=== PATIENT | male | born 1985 | race Caucasian/White ===

== ENCOUNTER 2021-02-28 12:07 | Emergency (ER) | payer MEDICAID, SELFPAY ==
[2021-02-28 12:13] VITALS: BP 127/89; PULSE 73; O2SAT 98
[2021-02-28 13:05] VITALS: BP 130/82; PULSE 72; RESP 16; TEMP 36.7; O2SAT 99; BMI 26.4
--- NOTE | 2021-02-28 15:43 | ED.GENADULT ---
HPI - General Adult General Chief complaint: Recheck/Abnormal Lab/Rx Stated complaint: hyperglycemia Time Seen by Provider: 02/28/21 15:42 Source: patient and EMS Mode of arrival: EMS Limitations: no limitations History of Present Illness HPI narrative: 35-year-old male presenting to the ER for evaluation of hyperglycemia. He reports his mom checked his blood sugar last night with her glucometer and was elevated at 398. Patient has no history of diabetes. He has a strong family history of diabetes in his mother and grandmother. He reports his last routine blood work was done about a year and a half ago with his primary care doctor at the [facility]. He has no known medical issues aside from some mild intermittent asthma. He occasionally uses marijuana but does not use any illicit drugs. He reports lately he has been extra hungry and very thirsty. He did any fever, chills, nausea, vomiting, abdominal pain, chest pain. MD complaint: hyperglycemia Onset (ago): unknown Relieving factors: none Exacerbating factors: none Associated symptoms: denies other symptoms Treatments prior to arrival: none Related Data Previous Rx's Medication Instructions Recorded blood sugar diagnostic (FreeStyle #100 ea 02/28/21 Lite Strips) blood-glucose meter (FreeStyle #1 ea 02/28/21 Lite Meter) lancets 28 gauge (FreeStyle #100 ea 02/28/21 Lancets) metformin 500 mg tablet 500 mg PO BID #60 tab 02/28/21 Allergies Allergy/AdvReac Type Severity Reaction Status Date / Time SHELLFISH Allergy Unknown ITCHY Uncoded 12/17/19 15:39 THROAT Review of Systems Review of Systems: Constitutional: No Fever, No Chills ENT/Mouth: No sore throat, No Rhinorrhea Cardiovascular: No Chest Pain, No SOB Respiratory: No Cough, No Sputum, No Wheezing, No dyspnea Gastrointestinal: No Nausea, No Vomiting, No Diarrhea, No abdominal Pain Genitourinary: No Dysuria Musculoskeletal: No joint pain, No Myalgias Skin: No Skin Lesions, No rash Neuro: No Weakness, No Numbness, No Dizziness,+ Headache Psych: + Anxiety/Panic, No Depression Heme/Lymph: No Bruising, No Lymphadenopathy Endocrine: + Polyuria, + Polydipsia PMF Past Medical History Medical History (Updated 02/28/21 @ 16:42 by ROSANGELA Cisneros) Asthma Social History Social History Advance Directives: No Advance Directives Information Provided: No Physical Exam Vital Signs: Vital Signs: Last Vital Signs Temp 98.1 F 02/28/21 13:05 Pulse 72 02/28/21 13:05 Resp 16 02/28/21 13:05 BP 130/82 02/28/21 13:05 Pulse Ox 99 02/28/21 13:05 Body Mass Index 26.4 Appearance: Alert. Oriented X3. No acute distress. Eyes: Pupils equal, round and reactive to light. ENT: Pharynx normal. Neck: Normal inspection. Neck supple. CVS: Normal heart rate and rhythm. Pulses normal. Respiratory: No respiratory distress. Breath sounds normal. Abdomen: Soft and nontender. +BS x4 Skin: Skin warm and dry. Normal skin color. Normal skin turgor. No rashes. Extremities: No lower extremity edema. Neuro: Oriented X 3. No motor deficit. No sensory deficit. Course Course Course Narrative: [age] male with history of asthma presents to the ER for evaluation of hyperglycemia. He reports his mom use her glucometer to check his sugar and it was 398 last night. He appears comfortable not in any respiratory distress. Doubt DKA. Will get basic lab workup and hemoglobin A1c. Will start some IV fluids. Reevaluation(s) Reevaluation #1: PH is normal which is reassuring against DKA. Other labs are still pending. Reevaluation #2: Labs show glucose 288. No anion gap. His hemoglobin A1c is 11% consistent with a sugar of 270. This is consistent with diabetes. Patient educated and counseled on this new diagnosis. Lab workup is otherwise unremarkable. At this time will start on metformin 500 mg b.i.d. and have follow-up with his primary care in the next 2 weeks. He had a has an appointment on March 14 and will try to move it up. It glucometer, test strips and lancets have been sent to his pharmacy and patient will be provided information on carb counting and newly diagnosed diabetes. All questions were answered and patient is stable for discharge home. Medical Decision Making Lab Data Result diagrams: 02/28/21 16:10 02/28/21 16:10 Labs: Lab Results 02/28/21 02/28/21 02/28/21 Range/Units 16:10 16:10 16:10 WBC 9.3 (4.8-10.8) X10*3/uL RBC 5.35 (4.60-5.80) X10*6/uL Hgb 15.1 (14.0-18.0) g/dl Hct 44.8 (42.0-52.0) % MCV 83.7 (80.0-98.0) fL MCH 28.2 (27.0-33.0) pg MCHC 33.7 (31.0-36.0) g/dl RDW 11.9 (11.0-16.0) % Plt Count 336 (160-400) X10*3/uL MPV 9.2 L (9.4-12.4) fL Immature Gran % (Auto) 0.8 H (0.0-0.4) % Neut % (Auto) 57.1 (45-73) % Lymph % (Auto) 32.7 (20-40) % [place] % (Auto) 8.0 (2-11) % Eos % (Auto) 1.1 (0-4) % Baso % (Auto) 0.3 (0-2) % Lymph # (Auto) 3.0 (1.2-4.9) X10*3/uL [place] # (Auto) 0.7 (0.1-1.2) X10*3/uL Eos # (Auto) 0.1 (0.0-0.4) X10*3/uL Baso # (Auto) 0.0 (0.0-0.2) X10*3/uL Abs Immat Gran (auto) 0.07 H (0.00-0.03) X10*3/uL Absolute Neuts (auto) 5.3 (2.0-8.3) x10*3/uL Absolute Nucleated RBC 0.000 (0.0-0.012) X10*3/uL Nucleated RBC % (auto) 0.0 (0.0-0.2) /100WBC VBG pH (7.32-7.43) VBG pCO2 mmHg VBG pO2 mmHg VBG HCO3 (22-26) mmol/L VBG O2 Saturation % VBG Base Excess mmol/L Sodium 137 (135-145) mmol/L Potassium 4.2 (3.3-5.1) mmol/L Chloride 103 (96-108) mmol/L Carbon Dioxide 27 (22-29) mmol/L Anion Gap 11 L (12-20) BUN 10 (9-16) mg/dL Creatinine 0.85 (0.5-1.4) mg/dL Estim Creat Clear Calc 96.4 Estimated GFR > 60 Random Glucose 288 H (60-115) mg/dL Estimat Average Glucose 269 mg/dL Hemoglobin A1c % 11.0 % Calcium 9.4 (8.4-10.2) mg/dL Magnesium 1.8 (1.6-2.6) mg/dL Total Bilirubin 0.3 (0.0-1.0) mg/dL Direct Bilirubin < 0.2 (0.0-0.5) mg/dL AST 12 (5-37) U/L ALT 24 (0-40) U/L Alkaline Phosphatase 77 (39-117) U/L Total Protein 6.5 (6.5-8.0) g/dL Albumin 3.9 (3.5-5.0) g/dL Acetone, Qual Negative (Negative) 02/28/21 Range/Units 16:24 WBC (4.8-10.8) X10*3/uL RBC (4.60-5.80) X10*6/uL Hgb (14.0-18.0) g/dl Hct (42.0-52.0) % MCV (80.0-98.0) fL MCH (27.0-33.0) pg MCHC (31.0-36.0) g/dl RDW (11.0-16.0) % Plt Count (160-400) X10*3/uL MPV (9.4-12.4) fL Immature Gran % (Auto) (0.0-0.4) % Neut % (Auto) (45-73) % Lymph % (Auto) (20-40) % [place] % (Auto) (2-11) % Eos % (Auto) (0-4) % Baso % (Auto) (0-2) % Lymph # (Auto) (1.2-4.9) X10*3/uL [place] # (Auto) (0.1-1.2) X10*3/uL Eos # (Auto) (0.0-0.4) X10*3/uL Baso # (Auto) (0.0-0.2) X10*3/uL Abs Immat Gran (auto) (0.00-0.03) X10*3/uL Absolute Neuts (auto) (2.0-8.3) x10*3/uL Absolute Nucleated RBC (0.0-0.012) X10*3/uL Nucleated RBC % (auto) (0.0-0.2) /100WBC VBG pH 7.37 (7.32-7.43) VBG pCO2 48 mmHg VBG pO2 40 mmHg VBG HCO3 28 H (22-26) mmol/L VBG O2 Saturation 67.0 % VBG Base Excess 2.2 mmol/L Sodium (135-145) mmol/L Potassium (3.3-5.1) mmol/L Chloride (96-108) mmol/L Carbon Dioxide (22-29) mmol/L Anion Gap (12-20) BUN (9-16) mg/dL Creatinine (0.5-1.4) mg/dL Estim Creat Clear Calc Estimated GFR Random Glucose (60-115) mg/dL Estimat Average Glucose mg/dL Hemoglobin A1c % % Calcium (8.4-10.2) mg/dL Magnesium (1.6-2.6) mg/dL Total Bilirubin (0.0-1.0) mg/dL Direct Bilirubin (0.0-0.5) mg/dL AST (5-37) U/L ALT (0-40) U/L Alkaline Phosphatase (39-117) U/L Total Protein (6.5-8.0) g/dL Albumin (3.5-5.0) g/dL Acetone, Qual (Negative) Discharge Plan Discharge Clinical Impression: Newly diagnosed diabetes Patient Disposition: Home, Self-Care Instructions: Type 2 Diabetes in Adults: New Diagnosis (ED), Basic Carbohydrate Counting (DC), How to Check your Blood Sugar (ED) Additional Instructions: Your hemoglobin A1c is 11% with an estimated average glucose of 269. This is consistent with a new diagnosis of diabetes. You are being started on Metformin 500 mg two times per day to help treat your diabetes. A glucometer and diabetic test strips have been sent to your pharmacy. Monitor your glucose before meals and at bedtime. Keep a record of your glucose readings for your doctor. Follow-up with your doctor as scheduled on March 14. If you can not move up this appointment that would be ideal. Limit your carb and sugar intake. Information on counting carbohydrates is attached. Avoid soda and high sugar drinks. If you develop new or worsening symptoms call 911 or come back to the ER for further evaluation. Prescriptions: New (DME) blood-glucose meter [FreeStyle Lite Meter] Kit See Rx Instructions .Route Qty: 1 RF: 0 (DME) lancets [FreeStyle Lancets] 28 gauge misc See Rx Instructions .Route Qty: 100 RF: 0 (DME) FreeStyle Lite Strips Strip See Rx Instructions .Route Qty: 100 RF: 0 metformin 500 mg tablet 500 mg PO BID Qty: 60 RF: 0 Referrals: [facility] [Primary Care Provider] - 2 days (Newly diagnosed diabetes)
[2021-02-28] MEDS: 0.9 % Sodium Chloride 1,000 ML 999 ML IVCONT (16:12)
[2021-02-28 16:25] LABS: MANUAL DIFF FLAG NO
[2021-02-28 16:28] LABS: Basophils Percent Auto 0.3 % (0-2); Eosinophils Absolute Auto 0.1 X10*3/uL (0.0-0.4); Eosinophils Percent Auto 1.1 % (0-4); Hematocrit 44.8 % (42.0-52.0); Hemoglobin 15.1 g/dl (14.0-18.0); Imm Gran Abs Auto 0.07 X10*3/uL (0.00-0.03); Imm Gran Pct Auto 0.8 % (0.0-0.4); Lymphocytes Percent Auto 32.7 % (20-40); Mean Corpuscular HGB Conc 33.7 g/dl (31.0-36.0); Mean Corpuscular Hemoglobin 28.2 pg (27.0-33.0); Mean Corpuscular Volume 83.7 fL (80.0-98.0); Mean Platelet Volume 9.2 fL (9.4-12.4); Monocytes Absolute Auto 0.7 X10*3/uL (0.1-1.2); Neutrophils Absolute Auto 5.3 x10*3/uL (2.0-8.3); Neutrophils Percent Auto 57.1 % (45-73); Platelet Count 336 X10*3/uL (160-400); Red Blood Count 5.35 X10*6/uL (4.60-5.80); Red Cell Distribution Width 11.9 % (11.0-16.0); White Blood Count 9.3 X10*3/uL (4.8-10.8)
[2021-02-28 16:30] LABS: Venous Blood Gas Refer to POC result
[2021-02-28 16:30] LABS: VBG Base Excess 2.2 mmol/L; VBG HCO3 28 mmol/L (22-26); VBG pCO2 48 mmHg; VBG pH 7.37 (7.32-7.43); VBG pO2 40 mmHg
[2021-02-28 16:42] LABS: Estimated Average Glucose 269 mg/dL
[2021-02-28 16:44] LABS: Acetone, serum QL Negative (Negative); Alanine Aminotransferase 24 U/L (0-40); Albumin Level 3.9 g/dL (3.5-5.0); Alkaline Phosphatase 77 U/L (39-117); Anion Gap 11 (12-20); Aspartate Amino Transferase 12 U/L (5-37); Bilirubin Direct < 0.2 mg/dL (0.0-0.5); Bilirubin Total 0.3 mg/dL (0.0-1.0); Blood Urea Nitrogen 10 mg/dL (9-16); Calcium 9.4 mg/dL (8.4-10.2); Carbon Dioxide 27 mmol/L (22-29); Chloride 103 mmol/L (96-108); Creatinine Clr Calc Pharmacy 96.4; Estimated Glomerular Filt Rate > 60; Glucose Random 288 mg/dL (60-115); Magnesium 1.8 mg/dL (1.6-2.6); Potassium 4.2 mmol/L (3.3-5.1); Sodium 137 mmol/L (135-145); Total Protein 6.5 g/dL (6.5-8.0)
== END 2021-02-28 17:55 | disposition home or self-care (01) ==
PROVIDERS: Physician Assistant; Emergency Provider Emergency Medicine Emergency Medical Services
DX: E11.9 Type 2 diabetes mellitus without complications (principal)
CPT/HCPCS: 36415; 80048; 80076; 82009; 82803; 83036; 83735; 85025; 96360; 99282; 99284

== ENCOUNTER 2021-05-03 10:00 | Emergency (ER) | payer MEDICAID, SELFPAY ==
--- NOTE | ~2021-05-03 | XR_ITS ---
EXAMINATION: XR CHEST CLINICAL INFORMATION: Fever and cough COMPARISON: Previous chest x-ray March 2016 TECHNIQUE: Frontal view of the chest was obtained. FINDINGS: No significant abnormality is noted involving the heart, lungs, mediastinum, bony thorax or soft tissues. XR/XR chest 1V IMPRESSION: Unremarkable examination.
--- NOTE | ~2021-05-03 | CT_ITS ---
EXAMINATION: CT HEAD WITHOUT CONTRAST CLINICAL INFORMATION: Headache. History of head injury one week ago COMPARISON: None TECHNIQUE: Contiguous axial imaging was performed from the skull base to vertex without intravenous administration of contrast. This CT examination was performed using dose optimization techniques as appropriate, variously including the following: *Automated exposure control *Adjustment of mA and/or kV according to patient size (this includes techniques or standardized protocols for targeted exams where dose is matched to indication/reason for exam; i.e. extremities or head) *Use of iterative reconstruction technique DLP: 652 mGy-cm FINDINGS: There is no evidence of an extra-axial collection. There is no evidence of intra-axial or extra-axial hemorrhage. There is a prominent cisterna magna. The ventricles and extra-axial CSF spaces are otherwise appropriate. Stephen-white matter differentiation is normal. No mass, mass effect or infarct is seen. There are inflammatory changes in the right maxillary sinus. Visualized paranasal sinuses, mastoid air cells and middle ears are otherwise clear.. CT/CT head/brain wo con IMPRESSION: No acute findings.
[2021-05-03 10:24] VITALS: BP 149/101; PULSE 115; RESP 20; TEMP 36.7; O2SAT 97; BMI 29.8
[2021-05-03 10:49] LABS: COVID-19 Test Negative (Negative); IDNOW Serial# 9DD0AD1C
--- NOTE | 2021-05-03 10:53 | PC.NURSE ---
PT STATES LAST WEEK HE HIT HIMSELF WITH A CUP IN THE FOREHEAD AND SINCE THEN HE FEELS NAUSEAS AND HAS HEADACHE. ABRASION NOTED TO FOREHEAD WITH MILD SWELLING. NEUROS INTACT, PERRLA.
[2021-05-03] MEDS: Butalb/Acetamin/Caff 50/325/40 TABLET 2 TAB PO (11:59)
[2021-05-03] MEDS: Ondansetron ODT 4 MG TAB.RAPDIS TRANSLINGU (11:59)
[2021-05-03 12:32] LABS: Influenza A Negative (Negative); Influenza B2 Negative (Negative)
[2021-05-03 12:48] VITALS: PULSE 99; RESP 17; O2SAT 99
[2021-05-03 12:49] VITALS: RESP 17
[2021-05-03 13:02] LABS: MANUAL DIFF FLAG NO
[2021-05-03 13:04] LABS: Glucose, Whole Blood 112 mg/dL (60-115)
[2021-05-03 13:10] LABS: Basophils Percent Auto 0.3 % (0-2); Eosinophils Absolute Auto 0.1 X10*3/uL (0.0-0.4); Eosinophils Percent Auto 0.4 % (0-4); Hematocrit 49.5 % (42.0-52.0); Hemoglobin 16.4 g/dl (14.0-18.0); Imm Gran Pct Auto 0.7 % (0.0-0.4); Lymphocytes Absolute Auto 4.2 X10*3/uL (1.2-4.9); Lymphocytes Percent Auto 29.4 % (20-40); Mean Corpuscular HGB Conc 33.1 g/dl (31.0-36.0); Mean Corpuscular Hemoglobin 27.4 pg (27.0-33.0); Mean Corpuscular Volume 82.8 fL (80.0-98.0); Mean Platelet Volume 8.3 fL (9.4-12.4); Monocytes Absolute Auto 1.2 X10*3/uL (0.1-1.2); Monocytes Percent Auto 8.5 % (2-11); Neutrophils Absolute Auto 8.7 x10*3/uL (2.0-8.3); Neutrophils Percent Auto 60.7 % (45-73); Platelet Count 438 X10*3/uL (160-400); Red Blood Count 5.98 X10*6/uL (4.60-5.80); Red Cell Distribution Width 12.5 % (11.0-16.0); White Blood Count 14.3 X10*3/uL (4.8-10.8)
[2021-05-03] MEDS: Ketorolac Tromethamine 30 MG/ML VIAL IVPUSH (13:20)
[2021-05-03] MEDS: 0.9 % Sodium Chloride 1,000 ML 999 ML IVCONT (13:21)
[2021-05-03] MEDS: diphenhydrAMINE HCL 50 MG/ML VIAL 25 MG IVPUSH (13:29)
--- NOTE | 2021-05-03 13:31 | ED_ITS ---
HPI - Headache General Chief Complaint: General Medical Stated Complaint: Nauseous Time Seen by Provider: 05/03/21 11:42 Source: patient Mode of arrival: ambulatory Limitations: no limitations History of Present Illness HPI Narrative: 36-year-old male with a past medical history of diabetes currently on metformin presenting to the ED with complaints of frontal headache pressure sensation that is worse with light with associated nasal congestion/rhinorrhea, ear pain, dry cough, nausea and vomiting along with body aches and diaphoresis for the past few days worse today. Reports that he was seen at [facility] approximately 1-2 weeks ago where he slammed a ceramic cup on his head and had to have sutures to his forehead. He reports since then he has been having intermittent headaches. He is unsure if [facility] did a CT scan of his head. He he denies any measured fevers, dizziness, neck pain/stiffness, changes in vision, black or bloody emesis, loss of taste or smell, sputum production, chest pain or shortness of breath, dyspnea on exertion, orthopnea, palpitations, abdominal pain, back pain, rashes, dysuria, hematuria, recent travel or sick contacts or any other symptoms complaints or concerns at this time. MD elicited complaint: headache Onset (ago): day(s) Onset description: gradually Location: frontal Severity: moderate Quality & Timing: aching (/pressure sensation) and constant Exacerbating factors: light Relieving factors: nothing Context: other (Cannot recall) Associated symptoms: nausea, vomiting, photophobia, cough and diaphoresis Treatments prior to arrival: none Related Data Previous Rx's Medication Instructions Recorded blood sugar diagnostic (FreeStyle #100 ea 02/28/21 Lite Strips) blood-glucose meter (FreeStyle #1 ea 02/28/21 Lite Meter) lancets 28 gauge (FreeStyle #100 ea 02/28/21 Lancets) metformin 500 mg tablet 500 mg PO BID #60 tab 02/28/21 amoxicillin 875 mg-potassium 1 tab PO BID 10 Days #20 tab 05/03/21 clavulanate 125 mg tablet (Augmentin) fsjbmaigen-ijzudtjacqhhp-kekwkauf 1 cap PO Q8H PRN #14 cap 05/03/21 50 mg-300 mg-40 mg capsule (Fioricet) ondansetron 4 mg disintegrating 4 mg PO Q8H #14 tab 05/03/21 tablet Allergies Allergy/AdvReac Type Severity Reaction Status Date / Time SHELLFISH Allergy Unknown ITCHY Uncoded 12/17/19 15:39 THROAT Review of Systems Verdana 4l Review of Systems: Verdana 4d Verdana 4d Constitutional : Positive diaphoresis/chills/fatigue/malaise, No changes in activity, No lethargy, No recent prior head injury, No agitation, No increased fussiness ENT/Mouth : Positive ear pain/nasal congestion/rhinorrhea, No Ear Pain, No Nasal discharge/drainage, no sore throat, no trouble swallowing Eyes: No Eye Pain, No Swelling, No Redness, No Foreign Body, No Vision Changes Cardiovascular : No Chest Pain, No SOB Respiratory : Positive Cough, no sputum production, no wheezing, no shortness of breath Gastrointestinal : Positive nausea/vomiting, no diarrhea, no constipation, No abdominal Pain Genitourinary : No Dysuria, No Urinary Frequency, No Urinary Incontinence, No Urgency, No Flank Pain Musculoskeletal : No joint pain, No neck stiffness, No back pain/injury Skin : No lacerations Neuro : No unsteady gait, No Paresthesias, No Loss of Consciousness, No altered mental status, No dizziness, + Headache Denies past medical history of HIV, recent trauma, coagulopathy, recent spinal/ epidural procedure, new medication, URI symptoms, close contacts with similar symptoms, tick bite, or known CO2 exposure. Yes all other systems are reviewed and are negative [facility] Past Medical History Attestation statement: The following information was validated with the patient. Medical History Asthma Social History Social History Advance Directives: No Advance Directives Information Provided: No Physical Exam Verdana 4l Vital Signs: Verdana 4d Verdana 4d Vital Signs: Verdana 4d Verdana 4Bd Last Vital Signs Verdana 4d Excellence Specialist New 4d Excellence Specialist New 4d Temp 97.8 F 05/03/21 14:24 Excellence Specialist New 4d Pulse 87 05/03/21 14:24 Excellence Specialist New 4d Resp 16 05/03/21 14:24 BP 116/77 05/03/21 14:24 Pulse Ox 100 05/03/21 14:24 BMI result Body Mass Index 29.8 Vital signs have been reviewed as normal and appeared to be correct. Blood pressure 149/101. Heart rate 115. Respiration rate normal. Temperature normal. Oxygen saturation normal. Appearance: Alert. Oriented X3. No acute distress. Head: Normal external exam. Normocephalic. Atraumatic. Able to rotate head bilaterally. No temporal artery tendinitis noted. Eyes: PERRLA. EOMI. No nystagmus noted. Conjunctiva and sclera normal. Eyelids normal. Corneal reflex normal. ENT: EAC normal. TM's mildly erythematous with decreased light reflex consistent with mild otitis media. Tympanic membranes are intact not perforated. Pharynx normal. Uvula midline. tongue midline. Moist mucous membranes. No trismus noted. No drooling noted. No muffled voice noted. Neck: Normal inspection. Neck supple. FROM. No adenopathy. Thyroid Normal. No meningeal signs. No neck mass noted. CVS: Normal heart rate and rhythm. Heart sound normal. No murmurs noted. Pulses normal throughout. Respiratory: No respiratory distress. Painless inspiration. Breath sounds normal. No wheezes/rales/rhonchi noted. Chest nontender. No accessory muscle usage noted or decreased air movement noted. Back: Full range of motion noted. Skin: Skin warm and dry. Normal skin color. Normal skin turgor. No rashes/lesions/lacerations noted. Extremities: Extremities exhibit normal range of motion. Extremities nontender. Able to shrug shoulders bilaterally and keep up against resistance. Neuro: Oriented X 3. No motor deficit. No sensory deficit. Reflexes normal. Moving all extremities. No focal motor deficits. Cranial nerves II-XI intact bilaterally. Facial strength normal. Normal cognition. Speech normal. Gait normal. Strength 5/5 throughout. No pronator drift. No tremor noted. No fasciculations noted. Muscle tone normal throughout. No asterixis noted. Rbfsqb-kc-wpjn test normal. Heel to longo test normal. Tandem gait normal. Does not sway with eyes open. Romberg test negative. Rapid alternating movement upper extremity normal. Rapid alternating movement lower extremity normal. Hand drop from overhead-Mrs. face. No rigidity noted. Course Course Course Narrative: 13pm - 36-year-old male with a past medical history of diabetes currently on metformin presenting to the ED with complaints of frontal headache pressure sensation that is worse with light with associated nasal congestion/rhinorrhea, ear pain, dry cough, nausea and vomiting along with body aches and diaphoresis for the past few days worse today. Reports that he was seen at [facility] approximately 1-2 weeks ago where he slammed a ceramic cup on his head and had to have sutures to his forehead. He reports since then he has been having intermittent headaches. He is unsure if [facility] did a CT scan of his head. He he denies any measured fevers, dizziness, neck pain/stiffness, changes in vision, black or bloody emesis, loss of taste or smell, sputum production, chest pain or shortness of breath, dyspnea on exertion, orthopnea, palpitations, abdominal pain, back pain, rashes, dysuria, hematuria, recent travel or sick contacts or any other symptoms complaints or concerns at this time. Plan: Patient negative for COVID and flu at this time. His blood sugar at this time is 117. Therefore at this time will obtain labs, CT scan of brain without contrast, chest x-ray. Provide a L of IV fluids due to the patient reports no symptomatic relief after the Fioricet will also provide 4 mg of Zofran, 30 mg of Toradol and 25 mg of Benadryl then re-evaluate. Reevaluation(s) Reevaluation #1: - labs reviewed patient [place] an [place] [address] most likely related to his episodes of nausea/vomiting. His platelet count is 438. Otherwise all other labs are within normal limits. UA revealed blood and 100 glucose otherwise no evidence of UTI. Patient negative for COVID and flu. His CT scan of brain is within normal limits. His chest x-ray is within normal limits. Will DC home antibiotics for bilateral otitis media and instructions return if any new or worsening symptoms to follow up with primary care provider. Patient understands agrees with this plan. Time: 15:14 [facility] - Headache Medical Records Attestation: I reviewed the patient's medical records. Lab Data Attestation: I reviewed the patient's lab results. Result diagrams: 05/03/21 12:58 05/03/21 13:45 Labs: Lab Results 05/03/21 05/03/21 05/03/21 Range/Units 10:28 12:01 12:52 WBC (4.8-10.8) X10*3/uL RBC (4.60-5.80) X10*6/uL Hgb (14.0-18.0) g/dl Hct (42.0-52.0) % MCV (80.0-98.0) fL MCH (27.0-33.0) pg MCHC (31.0-36.0) g/dl RDW (11.0-16.0) % Plt Count (160-400) X10*3/uL MPV (9.4-12.4) fL Immature Gran % (Auto) (0.0-0.4) % Neut % (Auto) (45-73) % Lymph % (Auto) (20-40) % [place] % (Auto) (2-11) % Eos % (Auto) (0-4) % Baso % (Auto) (0-2) % Lymph # (Auto) (1.2-4.9) X10*3/uL [place] # (Auto) (0.1-1.2) X10*3/uL Eos # (Auto) (0.0-0.4) X10*3/uL Baso # (Auto) (0.0-0.2) X10*3/uL Abs Immat Gran (auto) (0.00-0.03) X10*3/uL Absolute Neuts (auto) (2.0-8.3) x10*3/uL Absolute Nucleated RBC (0.0-0.012) X10*3/uL Nucleated RBC % (auto) (0.0-0.2) /100WBC ESR (0-15) MM/HR Sodium (135-145) mmol/L Potassium (3.3-5.1) mmol/L Chloride (96-108) mmol/L Carbon Dioxide (22-29) mmol/L Anion Gap (12-20) BUN (9-16) mg/dL Creatinine (0.5-1.4) mg/dL Estim Creat Clear Calc Estimated GFR POC Glucose 112 (60-115) mg/dL Random Glucose (60-115) mg/dL Calcium (8.4-10.2) mg/dL Magnesium (1.6-2.6) mg/dL Total Bilirubin (0.0-1.0) mg/dL AST (5-37) U/L ALT (0-40) U/L Alkaline Phosphatase (39-117) U/L C-Reactive Protein (< or = 0.50) mg/dL Total Protein (6.5-8.0) g/dL Albumin (3.5-5.0) g/dL Urine Color Urine Appearance Urine pH (5.0-8.0) Ur Specific [place] (1.005-1.025) Urine Protein (NEG-TRACE) MG/DL Urine Glucose (UA) (NEG) MG/DL Urine Ketones (NEG) MG/DL Urine Blood (NEG) Urine Nitrite (NEG) Ur Leukocyte Esterase (NEG) Urine RBC (0) /HPF Urine WBC (0-4) /HPF Ur Squamous Epith Cells /LPF Other Crystals /LPF Urine Bacteria /LPF Urine Mucus /LPF COVID-19 (ESE) Negative (Negative) COVID-19 Clin Com See Note Influenza Type A (ADAM) Negative (Negative) Influenza Type B (ADAM) Negative (Negative) Influenza A & B Note See Note 05/03/21 05/03/21 05/03/21 Range/Units 12:58 12:58 13:45 WBC 14.3 H (4.8-10.8) X10*3/uL RBC 5.98 H (4.60-5.80) X10*6/uL Hgb 16.4 (14.0-18.0) g/dl Hct 49.5 (42.0-52.0) % MCV 82.8 (80.0-98.0) fL MCH 27.4 (27.0-33.0) pg MCHC 33.1 (31.0-36.0) g/dl RDW 12.5 (11.0-16.0) % Plt Count 438 H D (160-400) X10*3/uL MPV 8.3 L (9.4-12.4) fL Immature Gran % (Auto) 0.7 H (0.0-0.4) % Neut % (Auto) 60.7 (45-73) % Lymph % (Auto) 29.4 (20-40) % [place] % (Auto) 8.5 (2-11) % Eos % (Auto) 0.4 (0-4) % Baso % (Auto) 0.3 (0-2) % Lymph # (Auto) 4.2 (1.2-4.9) X10*3/uL [place] # (Auto) 1.2 (0.1-1.2) X10*3/uL Eos # (Auto) 0.1 (0.0-0.4) X10*3/uL Baso # (Auto) 0.0 (0.0-0.2) X10*3/uL Abs Immat Gran (auto) 0.10 H (0.00-0.03) X10*3/uL Absolute Neuts (auto) 8.7 H (2.0-8.3) x10*3/uL Absolute Nucleated RBC 0.000 (0.0-0.012) X10*3/uL Nucleated RBC % (auto) 0.0 (0.0-0.2) /100WBC ESR 2 (0-15) MM/HR Sodium 139 (135-145) mmol/L Potassium 4.3 (3.3-5.1) mmol/L Chloride 105 (96-108) mmol/L Carbon Dioxide 27 (22-29) mmol/L Anion Gap 11 L (12-20) BUN 9 (9-16) mg/dL Creatinine 0.80 (0.5-1.4) mg/dL Estim Creat Clear Calc 107.3 Estimated GFR > 60 POC Glucose (60-115) mg/dL Random Glucose 139 H D (60-115) mg/dL Calcium 9.7 (8.4-10.2) mg/dL Magnesium 2.1 (1.6-2.6) mg/dL Total Bilirubin 0.6 (0.0-1.0) mg/dL AST 12 (5-37) U/L ALT 20 (0-40) U/L Alkaline Phosphatase 64 (39-117) U/L C-Reactive Protein 0.08 (< or = 0.50) mg/dL Total Protein 7.5 (6.5-8.0) g/dL Albumin 4.5 (3.5-5.0) g/dL Urine Color Urine Appearance Urine pH (5.0-8.0) Ur Specific [place] (1.005-1.025) Urine Protein (NEG-TRACE) MG/DL Urine Glucose (UA) (NEG) MG/DL Urine Ketones (NEG) MG/DL Urine Blood (NEG) Urine Nitrite (NEG) Ur Leukocyte Esterase (NEG) Urine RBC (0) /HPF Urine WBC (0-4) /HPF Ur Squamous Epith Cells /LPF Other Crystals /LPF Urine Bacteria /LPF Urine Mucus /LPF COVID-19 (ESE) (Negative) COVID-19 Clin Com Influenza Type A (ADAM) (Negative) Influenza Type B (ADAM) (Negative) Influenza A & B Note 05/03/21 Range/Units 14:19 WBC (4.8-10.8) X10*3/uL RBC (4.60-5.80) X10*6/uL Hgb (14.0-18.0) g/dl Hct (42.0-52.0) % MCV (80.0-98.0) fL MCH (27.0-33.0) pg MCHC (31.0-36.0) g/dl RDW (11.0-16.0) % Plt Count (160-400) X10*3/uL MPV (9.4-12.4) fL Immature Gran % (Auto) (0.0-0.4) % Neut % (Auto) (45-73) % Lymph % (Auto) (20-40) % [place] % (Auto) (2-11) % Eos % (Auto) (0-4) % Baso % (Auto) (0-2) % Lymph # (Auto) (1.2-4.9) X10*3/uL [place] # (Auto) (0.1-1.2) X10*3/uL Eos # (Auto) (0.0-0.4) X10*3/uL Baso # (Auto) (0.0-0.2) X10*3/uL Abs Immat Gran (auto) (0.00-0.03) X10*3/uL Absolute Neuts (auto) (2.0-8.3) x10*3/uL Absolute Nucleated RBC (0.0-0.012) X10*3/uL Nucleated RBC % (auto) (0.0-0.2) /100WBC ESR (0-15) MM/HR Sodium (135-145) mmol/L Potassium (3.3-5.1) mmol/L Chloride (96-108) mmol/L Carbon Dioxide (22-29) mmol/L Anion Gap (12-20) BUN (9-16) mg/dL Creatinine (0.5-1.4) mg/dL Estim Creat Clear Calc Estimated GFR POC Glucose (60-115) mg/dL Random Glucose (60-115) mg/dL Calcium (8.4-10.2) mg/dL Magnesium (1.6-2.6) mg/dL Total Bilirubin (0.0-1.0) mg/dL AST (5-37) U/L ALT (0-40) U/L Alkaline Phosphatase (39-117) U/L C-Reactive Protein (< or = 0.50) mg/dL Total Protein (6.5-8.0) g/dL Albumin (3.5-5.0) g/dL Urine Color STRAW Urine Appearance CLEAR Urine pH 5.5 (5.0-8.0) Ur Specific [place] <= 1.005 (1.005-1.025) Urine Protein NEG (NEG-TRACE) MG/DL Urine Glucose (UA) 100 H (NEG) MG/DL Urine Ketones NEG (NEG) MG/DL Urine Blood 1+ H (NEG) Urine Nitrite NEG (NEG) Ur Leukocyte Esterase NEG (NEG) Urine RBC 1-4 (0) /HPF Urine WBC 0 (0-4) /HPF Ur Squamous Epith Cells TRACE /LPF Other Crystals 1+ /LPF Urine Bacteria NONE /LPF Urine Mucus 1+ /LPF COVID-19 (ESE) (Negative) COVID-19 Clin Com Influenza Type A (ADAM) (Negative) Influenza Type B (ADAM) (Negative) Influenza A & B Note Imaging Data CT scan of brain without contrast: Attestation: I personally reviewed and interpreted this imaging study as follows: Radiologist's impression: FINDINGS: There is no evidence of an extra-axial collection. There is no evidence of intra-axial or extra-axial hemorrhage. There is a prominent cisterna magna. The ventricles and extra-axial CSF spaces are otherwise appropriate. Stephen-white matter differentiation is normal. No mass, mass effect or infarct is seen. There are inflammatory changes in the right maxillary sinus. Visualized paranasal sinuses, mastoid air cells and middle ears are otherwise clear.. ? CT/CT head/brain wo con IMPRESSION: No acute findings. Chest x-ray: Attestation: I personally reviewed and interpreted this imaging study as follows: Radiologist's impression: FINDINGS: No significant abnormality is noted involving the heart, lungs, mediastinum, bony thorax or soft tissues. XR/XR chest 1V IMPRESSION: Unremarkable examination. Critical Care Time Critical Care Time Critical Care Time: Yes Total Critical Care Time: 60 Attestation: I personally attest to this time spent taking care of the patient Discharge Plan Discharge Clinical Impression: Nausea & vomiting, Otitis media, Headache Patient Disposition: Home, Self-Care Instructions: Ear Infection (ED), Acute Nausea and Vomiting (ED), General Headache (ED) Prescriptions: New amoxicillin-pot clavulanate [Augmentin] 875-125 mg tablet 1 tab PO BID 10 Days Qty: 20 0RF iumkfgvzlm-mhxntndntlrls-psdl [Fioricet] 50-300-40 mg capsule 1 cap PO Q8H PRN (Reason: pain) Qty: 14 0RF ondansetron 4 mg tablet,disintegrating 4 mg PO Q8H Qty: 14 0RF No Action (DME) blood-glucose meter [FreeStyle Lite Meter] Kit See Rx Instructions .Route Qty: 1 0RF Rx Instructions: As directed (DME) lancets [FreeStyle Lancets] 28 gauge misc See Rx Instructions .Route Qty: 100 0RF Rx Instructions: As directed (DME) FreeStyle Lite Strips Strip See Rx Instructions .Route Qty: 100 0RF Rx Instructions: As directed metformin 500 mg tablet 500 mg PO BID Qty: 60 0RF Referrals: Bozena Lorenz MD [Primary Care Provider] - 2 days Print Language: Vietnamese
[2021-05-03 13:40] VITALS: RESP 17
[2021-05-03 14:09] LABS: Alanine Aminotransferase 20 U/L (0-40); Albumin Level 4.5 g/dL (3.5-5.0); Alkaline Phosphatase 64 U/L (39-117); Anion Gap 11 (12-20); Aspartate Amino Transferase 12 U/L (5-37); Bilirubin Total 0.6 mg/dL (0.0-1.0); Blood Urea Nitrogen 9 mg/dL (9-16); C Reactive Protein 0.08 mg/dL (< or = 0.50); Calcium 9.7 mg/dL (8.4-10.2); Carbon Dioxide 27 mmol/L (22-29); Chloride 105 mmol/L (96-108); Creatinine Clr Calc Pharmacy 107.3; Estimated Glomerular Filt Rate > 60; Glucose Random 139 mg/dL (60-115); Magnesium 2.1 mg/dL (1.6-2.6); Potassium 4.3 mmol/L (3.3-5.1); Sodium 139 mmol/L (135-145); Total Protein 7.5 g/dL (6.5-8.0)
[2021-05-03 14:24] VITALS: BP 116/77; PULSE 87; RESP 16; TEMP 36.6; O2SAT 100
[2021-05-03 14:25] LABS: Appearance Urine CLEAR; Glucose Urine UA 100 MG/DL (NEG); Leukocyte Esterase Urine NEG (NEG); Nitrite Urine NEG (NEG); PH 5.5 (5.0-8.0); Specific Gravity - Urine <= 1.005 (1.005-1.025); UACC Culture Trigger NO; Urine Blood 1+ (NEG); Urine Ketones NEG (NEG); Urine Protein NEG (NEG-TRACE)
[2021-05-03 14:26] LABS: Color Urine STRAW
[2021-05-03 14:33] LABS: Erythrocyte Sedimentation Rate 2 MM/HR (0-15)
[2021-05-03 14:39] LABS: Squamous Epithelial Cell Urine TRACE /LPF; WBC Urine 0 /HPF (0-4)
[2021-05-03 14:40] LABS: Mucus Urine 1+ /LPF; Other Crystals Urine 1+ /LPF
== END 2021-05-03 15:25 | disposition home or self-care (01) ==
PROVIDERS: Physician Assistant Medical; Emergency Provider Emergency Medicine Emergency Medical Services; PCP Internal Medicine
DX: H66.93 Otitis media, unspecified, bilateral (principal); R51.9 Headache, unspecified; R11.2 Nausea with vomiting, unspecified; Z20.822 Contact with and (suspected) exposure to COVID-19; Z79.899 Other long term (current) drug therapy
CPT/HCPCS: 36415; 70450; 71045; 80053; 81001; 82947; 83735; 85025; 85652; 86140; 87502; 87635; 96361; 96374; 96375; 99284; 99291; J1200; J1885

== ENCOUNTER 2021-06-02 11:08 | Emergency (ER) | payer MEDICAID, SELFPAY ==
[2021-06-02 11:11] VITALS: BP 146/85; PULSE 95; RESP 16; TEMP 36.7; O2SAT 97; BMI 26.8
--- NOTE | 2021-06-02 11:39 | ED.SKABFB ---
HPI - Skin/Abscess/Foreign Bdy General Chief complaint: Skin/Abscess/Foreign Body Stated complaint: infection on left hand Time Seen by Provider: 06/02/21 11:30 History of Present Illness HPI narrative: Patient complains of red swollen area on left hand which has been there for several days, no fever no chills no difficulty moving his fingers Related Data Home Medications Medication Instructions Recorded Confirmed acetaminophen 500 mg tablet 2 tab PO Q8H PRN 06/07/21 06/07/21 albuterol sulfate 90 mcg/actuation 2 puff PO Q4-6H PRN 06/07/21 06/07/21 aerosol inhaler (ProAir HFA) fluticasone propionate 50 2 spray INTRANASAL DAILY PRN 06/07/21 06/07/21 mcg/actuation nasal spray,suspension loperamide 2 mg tablet 2 mg PO Q4H PRN MDD 16 MG 06/07/21 06/07/21 (Anti-Diarrheal (loperamide)) loratadine 10 mg tablet 1 tab PO QAM PRN 06/07/21 06/07/21 trazodone 50 mg tablet 1 tab PO BEDTIME 06/07/21 06/07/21 Previous Rx's Medication Instructions Recorded blood sugar diagnostic (FreeStyle #100 ea 02/28/21 Lite Strips) blood-glucose meter (FreeStyle #1 ea 02/28/21 Lite Meter) lancets 28 gauge (FreeStyle #100 ea 02/28/21 Lancets) metformin 500 mg tablet 500 mg PO BID #60 tab 02/28/21 cephalexin 500 mg tablet 500 mg PO QID 7 Days #28 tab 06/02/21 doxycycline hyclate 100 mg capsule 100 mg PO BID 7 Days #14 cap 06/02/21 oxycodone 5 mg tablet 5 mg PO Q6H PRN #7 tab 06/02/21 albuterol sulfate 90 mcg/actuation 2 puff INHALATION Q4-6H PRN #8.5 g 06/07/21 aerosol inhaler cephalexin 500 mg capsule 500 mg PO BID 9 Days #18 cap 06/07/21 doxycycline hyclate 100 mg capsule 100 mg PO BID #18 cap 06/07/21 fluticasone propionate 50 1 spray INTRANASAL BID #16 g 06/07/21 mcg/actuation nasal spray,suspension loratadine 10 mg capsule 10 mg PO DAILY PRN #14 cap 06/07/21 metformin 500 mg tablet 500 mg PO BID #60 tab 06/07/21 trazodone 50 mg tablet 50 mg PO BEDTIME #30 tab 06/07/21 Allergies Allergy/AdvReac Type Severity Reaction Status Date / Time SHELLFISH Allergy Unknown ITCHY Uncoded 06/02/21 11:11 THROAT Review of Systems Review of Systems: Positive for painful red area on the back of the left hand Negatives are no fever no chills no dizziness no weakness no headache no neck pain no chest pain no nausea no vomiting no numbness no weakness no tingling no joint pains Yes all other systems are reviewed and are negative PMFSH Past Medical History Source: nursing notes reviewed Medical History Asthma Depression Diabetes Social History Social History Advance Directives: Yes Advance Directives Information Provided: Yes Advance Directives on File: No Physical Exam Vital Signs: Vital Signs: Last Vital Signs Temp 98.1 F 06/02/21 11:11 Pulse 95 06/02/21 11:11 Resp 16 06/02/21 11:11 BP 146/85 H 06/02/21 11:11 Pulse Ox 97 06/02/21 11:11 BMI result Body Mass Index 26.8 General appearance no acute distress Head is normocephalic atraumatic Neck is supple Respiratory no distress Extremities full range of motion x4 including left hand Left hand exam there is the quarter-sized area of redness induration and tenderness just proximal to the webspace between thumb and index finger on the dorsal left hand there is no lymphangitis, there is full range of motion in all fingers there is no evidence of any tendon deficit, neurovascular is intact Neuro no focal motor or sensory deficits Course Course Course Narrative: Left hand small area of redness and induration is cleansed with Betadine Anesthesia is 8 cc of 1% lidocaine A small incision was made and very superficial couple of drops of pus was discharged from the wound No other pus was expressed probing did not elicit any further collection of pus, no packing was placed It appeared to be a small pustule overlying some cellulitis and not a deep abscess Patient was placed on antibiotic and discharged Discharge Plan Discharge Clinical Impression: Cellulitis, Abscess Patient Disposition: Home, Self-Care Additional Instructions: The infection on back of her left hand appears to be a skin infection which had superficial pustule The small incision I made did not show any deeper abscess Return to the ER in 2-3 days for recheck Return immediately any time for spreading redness, worse pain and swelling, fever, red stripe up the arm, any worse condition or any concerns Prescriptions: New doxycycline hyclate 100 mg capsule 100 mg PO BID 7 Days Qty: 14 0RF cephalexin 500 mg tablet 500 mg PO QID 7 Days Qty: 28 0RF oxycodone 5 mg tablet 5 mg PO Q6H PRN (Reason: pain) Qty: 7 0RF No Action (DME) blood-glucose meter [FreeStyle Lite Meter] Kit See Rx Instructions .Route Qty: 1 0RF Rx Instructions: As directed (DME) lancets [FreeStyle Lancets] 28 gauge misc See Rx Instructions .Route Qty: 100 0RF Rx Instructions: As directed (DME) FreeStyle Lite Strips Strip See Rx Instructions .Route Qty: 100 0RF Rx Instructions: As directed metformin 500 mg tablet 500 mg PO BID Qty: 60 0RF trazodone 50 mg tablet 1 tab PO BEDTIME 0RF loperamide [Anti-Diarrheal (loperamide)] 2 mg tablet 2 mg PO Q4H MDD 16 MG PRN (Reason: Diarrhea) 0RF acetaminophen 500 mg tablet 2 tab PO Q8H PRN (Reason: Pain) 0RF albuterol sulfate [ProAir HFA] 90 mcg/actuation HFA aerosol inhaler 2 puff PO Q4-6H PRN (Reason: Wheezing) 0RF fluticasone propionate 50 mcg/actuation spray,suspension 2 spray intranasal DAILY PRN (Reason: Allergy Symptoms) 0RF loratadine 10 mg tablet 1 tab PO QAM PRN (Reason: Allergic Symptoms) 0RF metformin 500 mg tablet 500 mg PO BID Qty: 60 0RF cephalexin 500 mg capsule 500 mg PO BID 9 Days Qty: 18 0RF doxycycline hyclate 100 mg capsule 100 mg PO BID Qty: 18 0RF albuterol sulfate 90 mcg/actuation HFA aerosol inhaler 2 puff inhalation Q4-6H PRN (Reason: shortness of breath or wheezing) Qty: 8.5 0RF fluticasone propionate 50 mcg/actuation spray,suspension 1 spray intranasal BID Qty: 16 0RF Rx Instructions: administer into each nostril loratadine 10 mg capsule 10 mg PO DAILY PRN (Reason: allergy symptoms) Qty: 14 0RF trazodone 50 mg tablet 50 mg PO BEDTIME Qty: 30 0RF Stand Alone Forms: Work/School Release Interventions: ED Discharge Assessment Last Done: 06/02/21 12:30 Discharge Date/Time: 06/02/21 12:32
[2021-06-02] MEDS: cephALEXin 500 MG CAPSULE PO (11:44)
[2021-06-02] MEDS: Lidocaine HCl 1 % MPF 5 ML VIAL SUBCUT ×2 (11:44)
== END 2021-06-02 12:32 | disposition home or self-care (01) ==
PROVIDERS: Emergency Provider Emergency Medicine; PCP Internal Medicine
DX: L03.114 Cellulitis of left upper limb (principal); L02.512 Cutaneous abscess of left hand; Z79.899 Other long term (current) drug therapy
CPT/HCPCS: 10060; 87071; 87077; 87186; 87205; 99284

== ENCOUNTER 2021-06-07 08:25 | Emergency (ER) | payer MEDICAID, SELFPAY ==
[2021-06-07 08:26] VITALS: BP 145/101; PULSE 100; RESP 19; TEMP 36.1; O2SAT 98; BMI 26.6
[2021-06-07 09:17] LABS: COVID-19 Test Negative (Negative)
--- NOTE | 2021-06-07 09:37 | ED_ITS ---
HPI - Psych General Chief Complaint: Psychiatric Symptoms Stated Complaint: depression Time Seen by Provider: 06/07/21 08:37 Source: patient Mode of arrival: ambulatory Limitations: no limitations History of Present Illness HPI Narrative: Patient comes to the emergency room complaining of depression. Patient states he is homeless, patient states that he is having trouble with his mother as well. Patient denies suicidal ideation, states that he has not been taking any of his medications for a week. Related Data Home Medications Medication Instructions Recorded Confirmed acetaminophen 500 mg tablet 2 tab PO Q8H PRN 06/07/21 06/07/21 albuterol sulfate 90 mcg/actuation 2 puff PO Q4-6H PRN 06/07/21 06/07/21 aerosol inhaler (ProAir HFA) fluticasone propionate 50 2 spray INTRANASAL DAILY PRN 06/07/21 06/07/21 mcg/actuation nasal spray,suspension loperamide 2 mg tablet 2 mg PO Q4H PRN MDD 16 MG 06/07/21 06/07/21 (Anti-Diarrheal (loperamide)) loratadine 10 mg tablet 1 tab PO QAM PRN 06/07/21 06/07/21 trazodone 50 mg tablet 1 tab PO BEDTIME 06/07/21 06/07/21 Previous Rx's Medication Instructions Recorded blood sugar diagnostic (FreeStyle #100 ea 02/28/21 Lite Strips) blood-glucose meter (FreeStyle #1 ea 02/28/21 Lite Meter) lancets 28 gauge (FreeStyle #100 ea 02/28/21 Lancets) metformin 500 mg tablet 500 mg PO BID #60 tab 02/28/21 cephalexin 500 mg tablet 500 mg PO QID 7 Days #28 tab 06/02/21 doxycycline hyclate 100 mg capsule 100 mg PO BID 7 Days #14 cap 06/02/21 oxycodone 5 mg tablet 5 mg PO Q6H PRN #7 tab 06/02/21 albuterol sulfate 90 mcg/actuation 2 puff INHALATION Q4-6H PRN #8.5 g 06/07/21 aerosol inhaler cephalexin 500 mg capsule 500 mg PO BID 9 Days #18 cap 06/07/21 doxycycline hyclate 100 mg capsule 100 mg PO BID #18 cap 06/07/21 fluticasone propionate 50 1 spray INTRANASAL BID #16 g 06/07/21 mcg/actuation nasal spray,suspension loratadine 10 mg capsule 10 mg PO DAILY PRN #14 cap 06/07/21 metformin 500 mg tablet 500 mg PO BID #60 tab 06/07/21 trazodone 50 mg tablet 50 mg PO BEDTIME #30 tab 06/07/21 Allergies Allergy/AdvReac Type Severity Reaction Status Date / Time SHELLFISH Allergy Unknown ITCHY Uncoded 06/02/21 11:11 THROAT Review of Systems Review of Systems: Constitutional : No Weight loss, No Fever, No Chills, No Night Sweats, No Fatigue, No Malaise ENT/Mouth : No Hearing loss, No Ear Pain, No Nasal Congestion, No Sinus Pain, No Hoarseness, No sore throat, No Rhinorrhea, No Swallowing Difficulty Eyes: No Eye Pain, No Swelling, No Redness, No Foreign Body, No Discharge, No Vision Changes Cardiovascular : No Chest Pain, No SOB, No Dyspnea on Exertion, No Orthopnea, No Edema, No Palpitations Respiratory : No Cough, No Sputum, No Wheezing, No Smoke Exposure, No Dyspnea Gastrointestinal : No Nausea, No Vomiting, No Diarrhea, No Constipation, No abdominal Pain, No Hematochezia, No Melena Genitourinary : no irregular bleeding, No Dysuria, No Urinary Frequency, No H ematuria, No Urinary Incontinence, No Urgency, No Flank Pain, No Urinary Flow Changes, No Hesitancy Musculoskeletal : No joint pain, No Myalgias, No Joint Swelling Skin : Erythematous left hand, a week ago patient had I&D in the dorsum of the left hand Neuro : No Weakness, No Numbness, No Paresthesias, No Loss of Consciousness, No Dizziness, No Headache Psych : No anxiety, complaining of depression, no SI or HI Heme/Lymph: No Bruising, No Bleeding,No Lymphadenopathy Endocrine : No Polyuria, No Polydipsia, No Temperature Intolerance PMFSH Past Medical History Medical History Asthma Depression Diabetes Social History Social History Advance Directives: Yes Advance Directives Information Provided: Yes Advance Directives on File: No Physical Exam Vital Signs: Vital Signs: Last Vital Signs Temp 97 F 06/07/21 08:26 Pulse 100 06/07/21 08:26 Resp 19 06/07/21 08:26 BP 145/101 H 06/07/21 08:26 Pulse Ox 98 06/07/21 08:26 BMI result Body Mass Index 26.6 Const: Other: Appearance: Alert. Oriented X3. No acute distress. Eyes: Pupils equal, round and reactive to light. ENT: Pharynx normal. Neck: Normal inspection. Neck supple. No lymph nodes noted. No crepitus CVS: Normal heart rate and rhythm. Pulses normal. Normal S1 and S2 Respiratory: No respiratory distress. Breath sounds normal. No Wheezing. No rales Abdomen: Soft and nontender. No rigidity. No distention. Skin: Skin warm and dry. Erythema in the dorsum of the left hand between the 1st and 2nd fingers Extremities: No lower extremity edema. No Lacerations. No Rash Neuro: Oriented X 3. No motor deficit. No sensory deficit. Moving all extermities. No slurred speech. Cranial nerves 2-12 grossly intact Psych: Calm, cooperative, coherent speech Course Course Course Narrative: [facility] network consult pending. Patient is being started on his diabetic medication. Patient's blood sugar 221. Patient was restarted on metformin. Patient has erythema in his left hand. Patient is supposed to be taking cephalexin and doxycycline. However, patient states that his antibiotics were locked in his friend's house and he has not had any access to his meds for several days. Physician observation started at 10:22 [facility] evaluated the patient, patient is being discharged to the living room. Patient continues denying suicidal ideation. [facility] - Psych Lab Data Labs: Lab Results 06/07/21 06/07/21 Range/Units 08:58 09:45 POC Glucose 221 H (60-115) mg/dL COVID-19 (ESE) Negative (Negative) COVID-19 Clin Com See Note Discharge Plan Discharge Clinical Impression: Depression, Cellulitis Patient Disposition: Home, Self-Care Instructions: Depression (ED) Additional Instructions: Please follow-up with your primary care physician tomorrow. If you have any worsening or new symptoms, please return to the emergency room or call 911 Prescriptions: New metformin 500 mg tablet 500 mg PO BID Qty: 60 0RF cephalexin 500 mg capsule 500 mg PO BID 9 Days Qty: 18 0RF doxycycline hyclate 100 mg capsule 100 mg PO BID Qty: 18 0RF albuterol sulfate 90 mcg/actuation HFA aerosol inhaler 2 puff inhalation Q4-6H PRN (Reason: shortness of breath or wheezing) Qty: 8.5 0RF fluticasone propionate 50 mcg/actuation spray,suspension 1 spray intranasal BID Qty: 16 0RF Rx Instructions: administer into each nostril loratadine 10 mg capsule 10 mg PO DAILY PRN (Reason: allergy symptoms) Qty: 14 0RF trazodone 50 mg tablet 50 mg PO BEDTIME Qty: 30 0RF No Action doxycycline hyclate 100 mg capsule 100 mg PO BID 7 Days Qty: 14 0RF cephalexin 500 mg tablet 500 mg PO QID 7 Days Qty: 28 0RF oxycodone 5 mg tablet 5 mg PO Q6H PRN (Reason: pain) Qty: 7 0RF (DME) blood-glucose meter [FreeStyle Lite Meter] Kit See Rx Instructions .Route Qty: 1 0RF Rx Instructions: As directed (DME) lancets [FreeStyle Lancets] 28 gauge misc See Rx Instructions .Route Qty: 100 0RF Rx Instructions: As directed (DME) FreeStyle Lite Strips Strip See Rx Instructions .Route Qty: 100 0RF Rx Instructions: As directed metformin 500 mg tablet 500 mg PO BID Qty: 60 0RF trazodone 50 mg tablet 1 tab PO BEDTIME 0RF loperamide [Anti-Diarrheal (loperamide)] 2 mg tablet 2 mg PO Q4H MDD 16 MG PRN (Reason: Diarrhea) 0RF acetaminophen 500 mg tablet 2 tab PO Q8H PRN (Reason: Pain) 0RF albuterol sulfate [ProAir HFA] 90 mcg/actuation HFA aerosol inhaler 2 puff PO Q4-6H PRN (Reason: Wheezing) 0RF fluticasone propionate 50 mcg/actuation spray,suspension 2 spray intranasal DAILY PRN (Reason: Allergy Symptoms) 0RF loratadine 10 mg tablet 1 tab PO QAM PRN (Reason: Allergic Symptoms) 0RF
[2021-06-07 09:49] LABS: Glucose, Whole Blood 221 mg/dL (60-115)
[2021-06-07] MEDS: cephALEXin 250 MG CAPSULE PO (09:56)
[2021-06-07] MEDS: metFORMIN HCl 500 MG TABLET PO (10:24)
[2021-06-07] MEDS: Sertraline HCL 25 MG TABLET PO (10:24)
--- NOTE | 2021-06-07 11:18 | PHA.MEDREC ---
Pharmacy Consult ? Medication Reconciliation Pharmacy has completed the medication reconciliation. Patient has not started any of his ABX at home. He has not picked up any prescription. China Castelan, PharmD
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
== END 2021-06-07 13:00 | disposition home or self-care (01) ==
PROVIDERS: Emergency Provider Emergency Medicine; PCP Internal Medicine
DX: F33.1 Major depressive disorder, recurrent, moderate (principal); L03.90 Cellulitis, unspecified; Z79.899 Other long term (current) drug therapy; Z20.822 Contact with and (suspected) exposure to COVID-19
CPT/HCPCS: 82947; 87635; 99283

== ENCOUNTER 2021-06-30 06:45 | Inpatient (IN) | payer OTHER, SELFPAY ==
--- NOTE | 2021-06-30 | ECG_ITS ---
Test Reason : MEDICAL CLEARANCE Blood Pressure : / mmHG Vent. Rate : 083 BPM Atrial Rate : 083 BPM P-R Int : 154 ms QRS Dur : 080 ms QT Int : 356 ms P-R-T Axes : 065 018 006 degrees QTc Int : 418 ms Sinus rhythm with marked sinus arrhythmia Otherwise normal ECG No previous ECGs available Referred By: Sravan Coronel Electronically Signed By:SARAH OLIVERA
[2021-06-30 06:51] VITALS: BP 142/83; PULSE 104; RESP 16; TEMP 36.9; O2SAT 98; BMI 25.3
--- NOTE | 2021-06-30 07:17 | ED.PSYCH ---
HPI - Psych General Chief Complaint: Psychiatric Symptoms Stated Complaint: Crisis/SI Time Seen by Provider: 06/30/21 07:17 Source: patient Mode of arrival: ambulatory Limitations: no limitations History of Present Illness HPI Narrative: Patient is homeless, using cocaine, has not slept in a week, he is thinking of hurting himself. Patient is not taking his depression pills. Patient states the voices are telling him to hurt himself. No plan around suicide. MD complaint: suicidal ideation and feels depressed Onset (ago): week(s) Duration: constant History of same: Yes Exacerbating factors: alcohol and drug use Context: recent alcohol abuse and recent drug abuse (cocaine) Associated psychiatric symptoms: depression and suicidal ideation Related Data Home Medications Medication Instructions Recorded Confirmed loratadine 10 mg tablet 1 tab PO QAM PRN 06/07/21 06/07/21 blood sugar diagnostic (FreeStyle 07/01/21 07/01/21 Lite Strips) Previous Rx's Medication Instructions Recorded blood sugar diagnostic (FreeStyle #100 ea 02/28/21 Lite Strips) blood-glucose meter (FreeStyle #1 ea 02/28/21 Lite Meter) lancets 28 gauge (FreeStyle #100 ea 02/28/21 Lancets) albuterol sulfate 90 mcg/actuation 2 puff INHALATION Q4-6H PRN 30 07/06/21 aerosol inhaler Days #8.5 g fluticasone propionate 50 1 spray INTRANASAL BID 30 Days #16 07/06/21 mcg/actuation nasal g spray,suspension metformin 500 mg tablet 500 mg PO BID 30 Days #60 tab 07/06/21 sertraline 25 mg tablet 75 mg PO DAILY 30 Days #90 tab 07/06/21 trazodone 100 mg tablet 100 mg PO BEDTIME PRN 30 Days #30 07/06/21 tab Allergies Allergy/AdvReac Type Severity Reaction Status Date / Time SHELLFISH Allergy Unknown ITCHY Uncoded 06/02/21 11:11 THROAT Review of Systems Constitutional: Constitutional: Reports no additional constitutional complaints Eyes: Eyes: Reports no additional eye complaints ENT: Denies dizziness Cardiovascular: Cardiovascular: Reports no additional cardiovascular complaints Respiratory: Respiratory: Reports as per HPI Gastrointestinal: Gastrointestinal: Reports no additional gastrointestinal complaints Musculoskeletal: Musculoskeletal: Reports no additional musculoskeletal complaints Integumentary/Breasts: Skin/Breast: Denies rash Neurologic: Reports system reviewed and no additional complaints, except as documented, Denies dizziness and Denies Sensory deficit (Neuro) [facility] Past Medical History Medical History (Updated 07/14/21 @ 00:03 by Presley Garcia) Asthma Depression Diabetes MDD (major depressive disorder), recurrent severe, without psychosis Social History Social History Household Members: None Housing: Homeless Do you presently have visiting nurse or other home services: No Patient Tobacco Use Status: Current someday Tobacco user Tobacco use type: Cigarette Cigarettes Per Day: 2 Years Smoked: 15 e-Cigarette/Vaping Use: Currently Using Second Hand Smoke Exposure: Yes Substance Use Type: Crack/Cocaine and Marijuana service: No Sexual orientation: Cisgender Physical Exam Vital Signs: Vital Signs: Last Vital Signs Temp 98 F 07/06/21 06:00 Pulse 84 07/06/21 06:00 Resp 16 07/06/21 06:00 BP 114/75 07/06/21 06:00 Pulse Ox 98 07/06/21 06:00 BMI result Body Mass Index 25.3 Const: General: healthy appearing Nutritional Appearance: average body habitus Orientation/consciousness: oriented to person and patient oriented x3 Limitations: no limitations HEENT: Head: Yes normal to inspection Ears: external ears normal General nose exam: Normal external nose present Mouth: Normal oral and palatal mucosa present and oropharynx normal Throat: Yes posterior oropharynx normal Eyes: General: appearance normal, both eyes and all related structures Neck: Other: supple Neck: Yes normal visual inspection Chest: Chest palpation & inspection: normal inspection of the chest Resp: Auscultation: clear to auscultation bilaterally Cardio: Jugular venous distension: no JVD Rate: regular rate Rhythm: regular rhythm Heart sounds: S1 normal heart sound present and S2 normal heart sound present GI: Inspection: Yes normal to inspection Palpation (GI): Soft to palpation, nontender and No hepatosplenomegaly present Auscultation: normal bowel sounds : General: Yes no CVA tenderness Back/Spine/Pelvis: Back: no CVA tenderness Skin: General skin exam: no rashes or lesions noted Neuro: General: oriented to person and patient oriented x3 Cranial nerves: Yes CN's II-XII intact bilaterally Motor exam (neuro): 5/5 motor strength present throughout Sensory Exam: No Sensory deficit (Neuro) Extrem: General: Yes normal to inspection Psych: Other: tearful and anxious MDM - Psych Lab Data Result diagrams: 06/30/21 08:29 07/06/21 08:14 Labs: Lab Results 06/30/21 06/30/21 06/30/21 Range/Units 08:29 08:29 08:29 WBC 10.7 (4.8-10.8) X10*3/uL RBC 5.77 (4.60-5.80) X10*6/uL Hgb 15.8 (14.0-18.0) g/dl Hct 48.3 (42.0-52.0) % MCV 83.7 (80.0-98.0) fL MCH 27.4 (27.0-33.0) pg MCHC 32.7 (31.0-36.0) g/dl RDW 12.3 (11.0-16.0) % Plt Count 393 (160-400) X10*3/uL MPV 8.7 L (9.4-12.4) fL Immature Gran % (Auto) 0.8 H (0.0-0.4) % Neut % (Auto) 52.7 (45-73) % Lymph % (Auto) 35.1 (20-40) % Bill[place] % (Auto) 9.2 (2-11) % Eos % (Auto) 1.9 (0-4) % Baso % (Auto) 0.3 (0-2) % Lymph # (Auto) 3.8 (1.2-4.9) X10*3/uL [place] # (Auto) 1.0 (0.1-1.2) X10*3/uL Eos # (Auto) 0.2 (0.0-0.4) X10*3/uL Baso # (Auto) 0.0 (0.0-0.2) X10*3/uL Abs Immat Gran (auto) 0.09 H (0.00-0.03) X10*3/uL Absolute Neuts (auto) 5.6 (2.0-8.3) x10*3/uL Absolute Nucleated RBC 0.000 (0.0-0.012) X10*3/uL Nucleated RBC % (auto) 0.0 (0.0-0.2) /100WBC Sodium 139 (135-145) mmol/L Potassium 4.7 (3.3-5.1) mmol/L Chloride 102 (96-108) mmol/L Carbon Dioxide 28 (22-29) mmol/L Anion Gap 14 (12-20) BUN 7 L (9-16) mg/dL Creatinine 0.89 (0.5-1.4) mg/dL Estim Creat Clear Calc 84.0 Estimated GFR > 60 Random Glucose 160 H (60-115) mg/dL Calcium 10.1 (8.4-10.2) mg/dL Total Bilirubin 0.4 (0.0-1.0) mg/dL AST 14 (5-37) U/L ALT 35 (0-40) U/L Alkaline Phosphatase 72 (39-117) U/L Total Protein 7.8 (6.5-8.0) g/dL Albumin 4.6 (3.5-5.0) g/dL Salicylates < 5.0 L (15-30) mg/dL Urine Opiates Screen (Not Detect) Urine Fentanyl Screen (Not Detect) Acetaminophen < 1 (<30) mcg/mL Ur Barbiturates Screen (Not Detect) Ur Phencyclidine Scrn (Not Detect) Ur Amphetamines Screen (Not Detect) U Benzodiazepines Scrn (Not Detect) Urine Cocaine Screen (Not Detect) U Marijuana (THC) Screen (Not Detect) Ethyl Alcohol < 10 mg/dL COVID-19 (ESE) (Negative) COVID-19 Clin Com 06/30/21 06/30/21 Range/Units 10:17 13:23 WBC (4.8-10.8) X10*3/uL RBC (4.60-5.80) X10*6/uL Hgb (14.0-18.0) g/dl Hct (42.0-52.0) % MCV (80.0-98.0) fL MCH (27.0-33.0) pg MCHC (31.0-36.0) g/dl RDW (11.0-16.0) % Plt Count (160-400) X10*3/uL MPV (9.4-12.4) fL Immature Gran % (Auto) (0.0-0.4) % Neut % (Auto) (45-73) % Lymph % (Auto) (20-40) % Billings % (Auto) (2-11) % Eos % (Auto) (0-4) % Baso % (Auto) (0-2) % Lymph # (Auto) (1.2-4.9) X10*3/uL Bill[place] # (Auto) (0.1-1.2) X10*3/uL Eos # (Auto) (0.0-0.4) X10*3/uL Baso # (Auto) (0.0-0.2) X10*3/uL Abs Immat Gran (auto) (0.00-0.03) X10*3/uL Absolute Neuts (auto) (2.0-8.3) x10*3/uL Absolute Nucleated RBC (0.0-0.012) X10*3/uL Nucleated RBC % (auto) (0.0-0.2) /100WBC Sodium (135-145) mmol/L Potassium (3.3-5.1) mmol/L Chloride (96-108) mmol/L Carbon Dioxide (22-29) mmol/L Anion Gap (12-20) BUN (9-16) mg/dL Creatinine (0.5-1.4) mg/dL Estim Creat Clear Calc Estimated GFR Random Glucose (60-115) mg/dL Calcium (8.4-10.2) mg/dL Total Bilirubin (0.0-1.0) mg/dL AST (5-37) U/L ALT (0-40) U/L Alkaline Phosphatase (39-117) U/L Total Protein (6.5-8.0) g/dL Albumin (3.5-5.0) g/dL Salicylates (15-30) mg/dL Urine Opiates Screen Not Detected (Not Detect) Urine Fentanyl Screen Not Detected (Not Detect) Acetaminophen (<30) mcg/mL Ur Barbiturates Screen Not Detected (Not Detect) Ur Phencyclidine Scrn Not Detected (Not Detect) Ur Amphetamines Screen Not Detected (Not Detect) U Benzodiazepines Scrn Not Detected (Not Detect) Urine Cocaine Screen POSITIVE H (Not Detect) U Marijuana (THC) Screen POSITIVE H (Not Detect) Ethyl Alcohol mg/dL COVID-19 (ESE) Negative (Negative) COVID-19 Clin Com See Note Discharge Plan Discharge Clinical Impression: Depression Patient Disposition: Admitted As Inpatient Interventions: Admission Worksheet (ED) Last Done: 06/30/21 21:08 Discharge Date/Time: 06/30/21 21:09
--- NOTE | 2021-06-30 07:24 | PC.NURSE ---
patient reports off meds for three weeks they are at a friends house unreachable. reports unable to sleep for a week.
[2021-06-30 08:35] LABS: MANUAL DIFF FLAG NO
[2021-06-30 08:39] LABS: Basophils Percent Auto 0.3 % (0-2); Eosinophils Absolute Auto 0.2 X10*3/uL (0.0-0.4); Eosinophils Percent Auto 1.9 % (0-4); Hematocrit 48.3 % (42.0-52.0); Hemoglobin 15.8 g/dl (14.0-18.0); Imm Gran Abs Auto 0.09 X10*3/uL (0.00-0.03); Imm Gran Pct Auto 0.8 % (0.0-0.4); Lymphocytes Absolute Auto 3.8 X10*3/uL (1.2-4.9); Lymphocytes Percent Auto 35.1 % (20-40); Mean Corpuscular HGB Conc 32.7 g/dl (31.0-36.0); Mean Corpuscular Hemoglobin 27.4 pg (27.0-33.0); Mean Corpuscular Volume 83.7 fL (80.0-98.0); Mean Platelet Volume 8.7 fL (9.4-12.4); Monocytes Percent Auto 9.2 % (2-11); Neutrophils Absolute Auto 5.6 x10*3/uL (2.0-8.3); Neutrophils Percent Auto 52.7 % (45-73); Platelet Count 393 X10*3/uL (160-400); Red Blood Count 5.77 X10*6/uL (4.60-5.80); Red Cell Distribution Width 12.3 % (11.0-16.0); White Blood Count 10.7 X10*3/uL (4.8-10.8)
[2021-06-30 08:50] LABS: Acetaminophen LAB < 1 mcg/mL (<30); Alanine Aminotransferase 35 U/L (0-40); Albumin Level 4.6 g/dL (3.5-5.0); Alkaline Phosphatase 72 U/L (39-117); Anion Gap 14 (12-20); Aspartate Amino Transferase 14 U/L (5-37); Bilirubin Total 0.4 mg/dL (0.0-1.0); Blood Urea Nitrogen 7 mg/dL (9-16); Calcium 10.1 mg/dL (8.4-10.2); Carbon Dioxide 28 mmol/L (22-29); Chloride 102 mmol/L (96-108); Estimated Glomerular Filt Rate > 60; Glucose Random 160 mg/dL (60-115); Potassium 4.7 mmol/L (3.3-5.1); Salicylate < 5.0 mg/dL (15-30); Sodium 139 mmol/L (135-145); Total Protein 7.8 g/dL (6.5-8.0)
[2021-06-30 08:53] LABS: Ethanol < 10 mg/dL
[2021-06-30 10:37] LABS: COVID-19 Test Negative (Negative); IDNOW Serial# 16C4AD1C
[2021-06-30 13:54] LABS: Amphetamine Screen Urine Not Detected (Not Detect); Barbiturates, Urine Not Detected (Not Detect); Benzodiazepines Screen Urine Not Detected (Not Detect); Cannabinoid Screen Urine POSITIVE (Not Detect); Cocaine Screen Urine POSITIVE (Not Detect); Fentanyl, urine Not Detected (Not Detect); Opiate Screen Urine Not Detected (Not Detect); Phencyclidine Screen Urine Not Detected (Not Detect)
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
[2021-06-30 21:15] VITALS: BP 126/88; PULSE 84; RESP 17; TEMP 36.3; O2SAT 100
[2021-06-30 21:20] VITALS: BMI 26.2
[2021-06-30] MEDS: traZODone HCL 50 MG TABLET PO ×2 (23:05→23:50)
[2021-06-30] MEDS: metFORMIN HCl 500 MG TABLET PO (23:06)
[2021-06-30] MEDS: Acetaminophen 325 MG TABLET 650 MG PO (23:06)
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
[2021-07-01 06:30] VITALS: BP 99/65; PULSE 70; RESP 17; TEMP 36.2; O2SAT 98
[2021-07-01 07:52] LABS: Estimated Average Glucose 180 mg/dL; Hemoglobin A1c % 7.9 %
[2021-07-01 07:58] LABS: Cholesterol 204 mg/dL; HDL Cholesterol 35 mg/dL; LDL Cholesterol Calculated 103 mg/dl; Magnesium 2.2 mg/dL (1.6-2.6); Triglycerides 331 mg/dL
[2021-07-01 08:20] LABS: Free T4 (Free Thyroxine) 0.81 ng/dL (0.71-1.85); Thyroid Stimulating Hormone 1.19 uIU/mL (0.32-4.0)
[2021-07-01 08:36] LABS: Glucose, Whole Blood 211 mg/dL (60-115)
[2021-07-01] MEDS: metFORMIN HCl 500 MG TABLET PO ×2 (08:37→21:20)
--- NOTE | 2021-07-01 16:52 | HO.PSYCHPN ---
Subjective Subjective Date of Service: 07/01/21 Reason For Visit: SI, depression Subjective Notes: Conditional Voluntary Interim History: Patient seen and discussed. Patient seen in his room. He reports since coming in his hallucinations subsided. He was focused on the fact he was homeless and the medications were at his friends house. He didn't want to be on the streets. He denies SI today. Reports he has had difficulties with his anger. Although he never attempted suicide per his reports, he admits to hurting himself. One time took a vase and slammed it against his head. Review of Systems Acute medical concerns: No Mental Status Exam Mental Status Exam Narrative: A&O. In hospital attire, head circumference abnormal? has scar on forehead, appears older than stated age. Poor eye contact, mostly attentive. No Tics or Tremors. No abnormal involuntary movements. Calm, but guarded and did not want to engage in interview. Non-pressured speech, spontaneous with regular rate and rhythm, normal volume and prosody. No prolonged speech latency or dysarthria. Mood is ?depressed,? affect is irritable, congruent. Endorses passive SI. Recent SIB i.e. head banging. Denies HI upon inquiry. Currently denies A/VH or delusional thought content. Thoughts are coherent, organized. No known cognitive or memory impairment. Insight/ Judgment limited but adequate. Diagnostics Vital Signs (24Hr): Vital Signs - 24 hr 06/30/21 21:15 07/01/21 06:30 Temperature 97.3 F 97.1 F Pulse Rate 84 70 Respiratory Rate 17 17 Blood Pressure 126/88 99/65 Pulse Oximetry 100 98 BMI result Body Mass Index 26.2 Labs Results: 06/30/21 08:29 06/30/21 08:29 Labs: Laboratory Results - last 48 hr 06/30/21 06/30/21 06/30/21 08:29 08:29 08:29 WBC 10.7 RBC 5.77 Hgb 15.8 Hct 48.3 MCV 83.7 MCH 27.4 MCHC 32.7 RDW 12.3 Plt Count 393 MPV 8.7 L Immature Gran % (Auto) 0.8 H Neut % (Auto) 52.7 Lymph % (Auto) 35.1 [place] % (Auto) 9.2 Eos % (Auto) 1.9 Baso % (Auto) 0.3 Lymph # (Auto) 3.8 [place] # (Auto) 1.0 Eos # (Auto) 0.2 Baso # (Auto) 0.0 Abs Immat Gran (auto) 0.09 H Absolute Neuts (auto) 5.6 Absolute Nucleated RBC 0.000 Nucleated RBC % (auto) 0.0 Sodium 139 Potassium 4.7 Chloride 102 Carbon Dioxide 28 Anion Gap 14 BUN 7 L Creatinine 0.89 Estim Creat Clear Calc 84.0 Estimated GFR > 60 POC Glucose Random Glucose 160 H Estimat Average Glucose Hemoglobin A1c % Calcium 10.1 Magnesium Total Bilirubin 0.4 AST 14 ALT 35 Alkaline Phosphatase 72 Total Protein 7.8 Albumin 4.6 Triglycerides Cholesterol LDL Cholesterol, Calc HDL Cholesterol TSH Free T4 Salicylates < 5.0 L Urine Opiates Screen Urine Fentanyl Screen Acetaminophen < 1 Ur Barbiturates Screen Ur Phencyclidine Scrn Ur Amphetamines Screen U Benzodiazepines Scrn Urine Cocaine Screen U Marijuana (THC) Screen Ethyl Alcohol < 10 COVID-19 (ESE) COVID-19 [employer] 06/30/21 06/30/21 07/01/21 10:17 13:23 07:06 WBC RBC Hgb Hct MCV MCH MCHC RDW Plt Count MPV Immature Gran % (Auto) Neut % (Auto) Lymph % (Auto) [place] % (Auto) Eos % (Auto) Baso % (Auto) Lymph # (Auto) [place] # (Auto) Eos # (Auto) Baso # (Auto) Abs Immat Gran (auto) Absolute Neuts (auto) Absolute Nucleated RBC Nucleated RBC % (auto) Sodium Potassium Chloride Carbon Dioxide Anion Gap BUN Creatinine Estim Creat Clear Calc Estimated GFR POC Glucose Random Glucose Estimat Average Glucose 180 Hemoglobin A1c % 7.9 Calcium Magnesium Total Bilirubin AST ALT Alkaline Phosphatase Total Protein Albumin Triglycerides Cholesterol LDL Cholesterol, Calc HDL Cholesterol TSH Free T4 Salicylates Urine Opiates Screen Not Detected Urine Fentanyl Screen Not Detected Acetaminophen Ur Barbiturates Screen Not Detected Ur Phencyclidine Scrn Not Detected Ur Amphetamines Screen Not Detected U Benzodiazepines Scrn Not Detected Urine Cocaine Screen POSITIVE H U Marijuana (THC) Screen POSITIVE H Ethyl Alcohol COVID-19 (ESE) Negative COVID-19 [employer] [facility] See Note 07/01/21 07/01/21 07:06 08:31 WBC RBC Hgb Hct MCV MCH MCHC RDW Plt Count MPV Immature Gran % (Auto) Neut % (Auto) Lymph % (Auto) [place] % (Auto) Eos % (Auto) Baso % (Auto) Lymph # (Auto) [place] # (Auto) Eos # (Auto) Baso # (Auto) Abs Immat Gran (auto) Absolute Neuts (auto) Absolute Nucleated RBC Nucleated RBC % (auto) Sodium Potassium Chloride Carbon Dioxide Anion Gap BUN Creatinine Estim Creat Clear Calc Estimated GFR POC Glucose 211 H Random Glucose Estimat Average Glucose Hemoglobin A1c % Calcium Magnesium 2.2 Total Bilirubin AST ALT Alkaline Phosphatase Total Protein Albumin Triglycerides 331 Cholesterol 204 LDL Cholesterol, Calc 103 HDL Cholesterol 35 TSH 1.19 Free T4 0.81 Salicylates Urine Opiates Screen Urine Fentanyl Screen Acetaminophen Ur Barbiturates Screen Ur Phencyclidine Scrn Ur Amphetamines Screen U Benzodiazepines Scrn Urine Cocaine Screen U Marijuana (THC) Screen Ethyl Alcohol COVID-19 (ESE) COVID-19 Clin Com Medications Medications Current Medications Acetaminophen (Acetaminophen 325 Mg Tablet) 650 mg PO Q6H PRN PRN Reason: Headache/Pain Mild Scale (1-3) Last Admin: 06/30/21 23:06 Dose: 650 mg Documented by: Al Hydroxide/Mg Hydroxide (Magnesium Hydrox/Alum Hydrox 30 Ml Oral.Susp) 30 ml PO Q6H PRN PRN Reason: Heartburn/Nausea Hydroxyzine HCl (Hydroxyzine Hcl 25 Mg Tablet) 25 mg PO Q6H PRN PRN Reason: Anxiety Magnesium Hydroxide (Milk Of Magnesia 30 Ml Oral.Susp) 30 ml PO DAILY PRN PRN Reason: Constipation Metformin HCl (Metformin Hcl 500 Mg Tablet) 500 mg PO BID JACOB Last Admin: 07/01/21 08:37 Dose: 500 mg Documented by: Trazodone HCl (Trazodone Hcl 50 Mg Tablet) 50 mg PO BEDTIME PRN PRN Reason: Insomnia Last Admin: 06/30/21 23:50 Dose: 50 mg Documented by: Allergies Allergies Allergy/AdvReac Type Severity Reaction Status Date / Time SHELLFISH Allergy Unknown ITCHY Uncoded 06/02/21 11:11 THROAT Assessment & Plan Assessment & Plan (1) MDD (major depressive disorder), recurrent episode, moderate: Status: Acute Code(s): F33.1 - Major depressive disorder, recurrent, moderate (2) Cocaine use disorder: Status: Acute Code(s): F14.10 - Cocaine abuse, uncomplicated Plan Abdias is a 36 y.o. Male who carries a dx of MDD, recurrent and cocaine use disorder. He presented to [facility] 06/30/21 due to depression, SI, and med non-adherence x 3 weeks. Pt endorsed AH telling him to kill yourself.? Pt has been head banging due to AH. Sleep has been poor. Precipitating factors include that he is homeless. Utox positive for cannabis and cocaine. Not overly forthcoming in interview. Has sx of impulsivity, irritability, ? TBI or cognitive impairment (denies hx of TBI however per chart hx of head banging). Plan: Pt requesting trazodone for sleep. May benefit from antidepressant, was given script for sertraline by PCP but did not fill it. Sx exacerbated by chronic homelessness. Q15 min safety checks, CV Monitor response to medications. Monitor for safety in the milieu. Discharge on stabilization. Patient seen. Chart reviewed. Discussed with team. Obtain collateral contact info?as needed 07/01: Will restart Zoloft and monitor. I spent minutes with the patient and/or on the patient floor today, greater than?50% of which was spent counseling/coordinating care. Reason for contiued inpatient stay Substantial Risk for: harm to self and inability to function
[2021-07-01 18:00] VITALS: BP 139/81; RESP 16; O2SAT 96
[2021-07-01] MEDS: traZODone HCL 50 MG TABLET PO ×2 (21:20→22:18)
[2021-07-02] MEDS: traZODone HCL 50 MG TABLET PO ×2 (01:30→20:18)
[2021-07-02 06:20] VITALS: BP 131/63; PULSE 94; RESP 18; TEMP 36.8; O2SAT 97
[2021-07-02 06:41] LABS: Glucose, Whole Blood 269 mg/dL (60-115)
[2021-07-02] MEDS: metFORMIN HCl 500 MG TABLET PO ×2 (08:06→20:17)
[2021-07-02] MEDS: Sertraline HCL 50 MG TABLET PO (08:06)
--- NOTE | 2021-07-02 13:36 | HO.PSYCHPN ---
Subjective Subjective Date of Service: 07/02/21 Reason For Visit: SI, depression Subjective Notes: Conditional Voluntary Interim History: Patient seen and discussed. He reports having diarrhea and nausea. No fevers. No blood per rectum. No abdominal pain or vomiting. Started last night. First dose of Zoloft this AM none yesterday. He denies other physical symptoms. He says it could be related to the change in food. He reports his mood is better. Denies SI. Denies hallucinations. Medication Compliance: Yes Mental Status Exam Mental Status Exam Narrative: A&O. Head circumference abnormal? has scar on forehead, appears older than stated age. Poor eye contact, mostly attentive. No Tics or Tremors. No abnormal involuntary movements. Calm, but guarded and did not want to engage in interview. Non-pressured speech, spontaneous with regular rate and rhythm, normal volume and prosody. No prolonged speech latency or dysarthria. Mood is ?depressed,? affect is irritable, congruent. Recent SIB i.e. head banging. Denies HI upon inquiry. Currently denies A/VH or delusional thought content. Thoughts are coherent, organized. No known cognitive or memory impairment. Insight/ Judgment limited but adequate. Diagnostics Vital Signs (24Hr): Vital Signs - 24 hr 07/01/21 18:00 07/02/21 06:20 Temperature 98.2 F Pulse Rate 94 Respiratory Rate 16 18 Blood Pressure 139/81 131/63 Pulse Oximetry 96 97 BMI result Body Mass Index 26.2 Labs Results: 06/30/21 08:29 06/30/21 08:29 Labs: Laboratory Results - last 48 hr 06/30/21 07/01/21 07/01/21 13:23 07:06 07:06 POC Glucose Estimat Average Glucose 180 Hemoglobin A1c % 7.9 Magnesium 2.2 Triglycerides 331 Cholesterol 204 LDL Cholesterol, Calc 103 HDL Cholesterol 35 TSH 1.19 Free T4 0.81 Urine Opiates Screen Not Detected Urine Fentanyl Screen Not Detected Ur Barbiturates Screen Not Detected Ur Phencyclidine Scrn Not Detected Ur Amphetamines Screen Not Detected U Benzodiazepines Scrn Not Detected Urine Cocaine Screen POSITIVE H U Marijuana (THC) Screen POSITIVE H 07/01/21 07/02/21 08:31 06:20 POC Glucose 211 H 269 H Estimat Average Glucose Hemoglobin A1c % Magnesium Triglycerides Cholesterol LDL Cholesterol, Calc HDL Cholesterol TSH Free T4 Urine Opiates Screen Urine Fentanyl Screen Ur Barbiturates Screen Ur Phencyclidine Scrn Ur Amphetamines Screen U Benzodiazepines Scrn Urine Cocaine Screen U Marijuana (THC) Screen Medications Medications Current Medications Acetaminophen (Acetaminophen 325 Mg Tablet) 650 mg PO Q6H PRN PRN Reason: Headache/Pain Mild Scale (1-3) Last Admin: 06/30/21 23:06 Dose: 650 mg Documented by: Al Hydroxide/Mg Hydroxide (Magnesium Hydrox/Alum Hydrox 30 Ml Oral.Susp) 30 ml PO Q6H PRN PRN Reason: Heartburn/Nausea Hydroxyzine HCl (Hydroxyzine Hcl 25 Mg Tablet) 25 mg PO Q6H PRN PRN Reason: Anxiety Loperamide HCl (Loperamide Hcl 2 Mg Capsule) 2 mg PO Q6H PRN PRN Reason: Diarrhea Magnesium Hydroxide (Milk Of Magnesia 30 Ml Oral.Susp) 30 ml PO DAILY PRN PRN Reason: Constipation Metformin HCl (Metformin Hcl 500 Mg Tablet) 500 mg PO BID [facility] Last Admin: 07/02/21 08:06 Dose: 500 mg Documented by: Ondansetron HCl (Ondansetron Odt 4 Mg Tab.Rapdis) 4 mg TRANSLINGU Q6H PRN PRN Reason: nausea/vomiting Sertraline HCl (Sertraline Hcl 50 Mg Tablet) 50 mg PO DAILY [facility] Last Admin: 07/02/21 08:06 Dose: 50 mg Documented by: Trazodone HCl (Trazodone Hcl 50 Mg Tablet) 50 mg PO BEDTIME PRN PRN Reason: Insomnia Last Admin: 07/02/21 01:30 Dose: 50 mg Documented by: Allergies Allergies Allergy/AdvReac Type Severity Reaction Status Date / Time SHELLFISH Allergy Unknown ITCHY Uncoded 06/02/21 11:11 THROAT Assessment & Plan Assessment & Plan (1) MDD (major depressive disorder), recurrent episode, moderate: Status: Acute Code(s): F33.1 - Major depressive disorder, recurrent, moderate (2) Cocaine use disorder: Status: Acute Code(s): F14.10 - Cocaine abuse, uncomplicated Plan Abdias is a 36 y.o. Male who carries a dx of MDD, recurrent and cocaine use disorder. He presented to [facility] 06/30/21 due to depression, SI, and med non-adherence x 3 weeks. Pt endorsed AH telling him to kill yourself.? Pt has been head banging due to AH. Sleep has been poor. Precipitating factors include that he is homeless. Utox positive for cannabis and cocaine. Not overly forthcoming in interview. Has sx of impulsivity, irritability, ? TBI or cognitive impairment (denies hx of TBI however per chart hx of head banging). Plan: Pt requesting trazodone for sleep. May benefit from antidepressant, was given script for sertraline by PCP but did not fill it. Sx exacerbated by chronic homelessness. Q15 min safety checks, CV Monitor response to medications. Monitor for safety in the milieu. Discharge on stabilization. Patient seen. Chart reviewed. Discussed with team. Obtain collateral contact info?as needed 4/2: Will restart Zoloft and monitor. 43 Start loperamide and zofran. Continue Zoloft. Check marjorie for O/P and C diff. I spent minutes with the patient and/or on the patient floor today, greater than?50% of which was spent counseling/coordinating care. Reason for contiued inpatient stay Substantial Risk for: harm to self and inability to function
[2021-07-02 18:00] VITALS: BP 123/78; PULSE 82; RESP 16; TEMP 36.6; O2SAT 97
[2021-07-02 23:10] LABS: Leukocytes Stool Qualitative NEGATIVE (NEGATIVE)
[2021-07-03 00:04] LABS: CDiff Gene PCR NEGATIVE (Negative)
[2021-07-03] MEDS: Acetaminophen 325 MG TABLET 650 MG PO (00:45)
[2021-07-03 06:00] VITALS: BP 123/72; PULSE 76; RESP 16; TEMP 36.2; O2SAT 97
[2021-07-03 07:56] LABS: Glucose, Whole Blood 246 mg/dL (60-115)
[2021-07-03] MEDS: metFORMIN HCl 500 MG TABLET PO ×2 (08:29→21:24)
[2021-07-03] MEDS: Sertraline HCL 50 MG TABLET PO (08:29)
[2021-07-03 08:46] LABS: Folate 9.2 ng/mL (> or = 4.0); Vitamin B12 301 pg/mL (200-900)
--- NOTE | 2021-07-03 10:37 | P.PNPSI_ITS ---
Subjective Subjective Date of Service: 07/03/21 Reason For Visit: SI, depression Interim History: pt says he's been depressed since being off his meds for a few weeks after he was no longer able to stay at his friends house (friend is no where to be found and pt's cloths and meds are in apartment). He started to get suicidal. Pt says his depression is a little better and SI is fully resolved. He says he's struggled with depression and anxiety for a long time and agrees to further titr ate Zoloft to 75mg. Otherwise, he's sleeping and eating well and appreciative of help received. Loose stool fully resolved. Mental Status Exam Mental Status Exam Narrative: Pt is alert and oriented; behavior is cooperative, friendly and calm; patient is not in distress; dressed in t-shirt, unkempt but with adequate hygiene; mood is described as better and affect congruent; eye contact appropriate; Speech is normal rate, volume and prosody and not pressured; no psychomotor agitation/retardation present; thought process is organized and goal directed; Thought content is on tx; otherwise pertinent to relevant topics and without any delusional content, paranoid ideations or grandiosity; denies any SI/HI. There is no evidence of perceptual disturbance. Patients insight and judgment appear intact. Diagnostics Vital Signs (24Hr): Vital Signs - 24 hr 07/02/21 18:00 07/03/21 06:00 Temperature 97.8 F 97.2 F Pulse Rate 82 76 Respiratory Rate 16 16 Blood Pressure 123/78 123/72 Pulse Oximetry 97 97 BMI result Body Mass Index 26.2 Labs Results: 06/30/21 08:29 06/30/21 08:29 Labs: Laboratory Results - last 48 hr 07/01/21 07/02/21 07/02/21 07:06 06:20 19:30 POC Glucose 269 H Vitamin B12 301 Folate 9.2 Stool Leukocytes, Qual C. difficile Tox B Gene NEGATIVE 07/02/21 07/03/21 19:30 07:51 POC Glucose 246 H Vitamin B12 Folate Stool Leukocytes, Qual NEGATIVE C. difficile Tox B Gene Medications Medications Current Medications Acetaminophen (Acetaminophen 325 Mg Tablet) 650 mg PO Q6H PRN PRN Reason: Headache/Pain Mild Scale (1-3) Last Admin: 07/03/21 00:45 Dose: 650 mg Documented by: Al Hydroxide/Mg Hydroxide (Magnesium Hydrox/Alum Hydrox 30 Ml Oral.Susp) 30 ml PO Q6H PRN PRN Reason: Heartburn/Nausea Hydroxyzine HCl (Hydroxyzine Hcl 25 Mg Tablet) 25 mg PO Q6H PRN PRN Reason: Anxiety Loperamide HCl (Loperamide Hcl 2 Mg Capsule) 2 mg PO Q6H PRN PRN Reason: Diarrhea Magnesium Hydroxide (Milk Of Magnesia 30 Ml Oral.Susp) 30 ml PO DAILY PRN PRN Reason: Constipation Metformin HCl (Metformin Hcl 500 Mg Tablet) 500 mg PO BID [facility] Last Admin: 07/03/21 08:29 Dose: 500 mg Documented by: Ondansetron HCl (Ondansetron Odt 4 Mg Tab.Rapdis) 4 mg TRANSLINGU Q6H PRN PRN Reason: nausea/vomiting Sertraline HCl (Sertraline Hcl 50 Mg Tablet) 50 mg PO DAILY [facility] Last Admin: 07/03/21 08:29 Dose: 50 mg Documented by: Trazodone HCl (Trazodone Hcl 50 Mg Tablet) 50 mg PO BEDTIME PRN PRN Reason: Insomnia Last Admin: 07/02/21 20:18 Dose: 50 mg Documented by: Allergies Allergies Allergy/AdvReac Type Severity Reaction Status Date / Time SHELLFISH Allergy Unknown ITCHY Uncoded 06/02/21 11:11 THROAT Assessment & Plan Assessment & Plan (1) MDD (major depressive disorder), recurrent episode, moderate: Status: Acute Code(s): F33.1 - Major depressive disorder, recurrent, moderate (2) Cocaine use disorder: Status: Acute Code(s): F14.10 - Cocaine abuse, uncomplicated Plan Abdias is a 36 y.o. Male who carries a dx of MDD, recurrent and cocaine use diso rder. He presented to [facility] 06/30/21 due to depression, SI, and med non- adherence x 3 weeks. Pt endorsed AH telling him to kill yourself.? Pt has been head banging due to AH. Sleep has been poor. Precipitating factors include that he is homeless. Utox positive for cannabis and cocaine. Not overly forthcoming in interview. Has sx of impulsivity, irritability, ? TBI or cognitive impairment (denies hx of TBI however per chart hx of head banging). started on zoloft (was prescrived by outpt provider but never took); process description writer reviewed risks/side-effects. mood has improved, SI resolved Plan: Q15 min safety checks, CV Increase Zoloft to 75mg (prescribed by outpt provider) monitor labs: loose stool resolved; stool samples/ labs unremarkable so far Monitor response to medications. Monitor for safety in the milieu. Discharge on stabilization. Patient seen. Chart reviewed. Discussed with team. Obtain collateral contact info?as needed I spent minutes with the patient and/or on the patient floor today, greater than?50% of which was spent counseling/coordinating care. Patient educated on: diagnosis and medication risk/benefits Informed Consent: understands Reason for contiued inpatient stay Substantial Risk for: rapid decompensation
[2021-07-03] MEDS: traZODone HCL 50 MG TABLET PO (21:24)
[2021-07-03 22:00] VITALS: BP 118/62; PULSE 72; TEMP 36.6
[2021-07-04] MEDS: traZODone HCL 50 MG TABLET PO (01:30)
[2021-07-04] MEDS: Acetaminophen 325 MG TABLET 650 MG PO (01:31)
[2021-07-04 06:00] VITALS: BP 120/79; PULSE 85; RESP 18; TEMP 36.7; O2SAT 98
[2021-07-04 06:50] LABS: Glucose, Whole Blood 196 mg/dL (60-115)
[2021-07-04] MEDS: metFORMIN HCl 500 MG TABLET PO ×2 (09:12→20:09)
[2021-07-04] MEDS: Sertraline HCL 25 MG TABLET 75 MG PO (09:12)
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
[2021-07-04 16:56] VITALS: BP 133/73; PULSE 91; RESP 16; TEMP 36; O2SAT 98
[2021-07-04] MEDS: traZODone HCL 100 MG TABLET PO (20:09)
[2021-07-05 06:00] VITALS: BP 111/77; PULSE 86; RESP 16; TEMP 36.5; O2SAT 98
[2021-07-05 06:26] LABS: Glucose, Whole Blood 185 mg/dL (60-115)
[2021-07-05] MEDS: metFORMIN HCl 500 MG TABLET PO ×2 (08:42→21:36)
[2021-07-05] MEDS: Sertraline HCL 25 MG TABLET 75 MG PO (08:42)
--- NOTE | 2021-07-05 10:43 | P.PNPSI_ITS ---
Subjective Subjective Date of Service: 07/05/21 Reason For Visit: SI, depression Interim History: Patient reports that he is doing well. He says he is in a good mood, the depression is resolved he remains without any SI. Patient also says he slept well last night and felt that the trazodone 100 mg made the difference. Patient has been attending groups and shared with job specification writer how helpful today's group was. Commercial Journeyman Electrician discussed discharge and patient said that he is feeling ready. He plans to go and stay with a friend while waiting for Section 8 housing which he says will be available for him on July 30. Patient has a contact with an out reach program it was helped him set up Section 8 housing. Commercial Journeyman Electrician discussed positive UDS for cocaine and patient said it is atypical for him to use it, it was not available and he used to stay up at night. He says otherwise he rarely does so and that it is not a problem. Patient denies any medication side effects. He feels that Zoloft 75 mg is working and does not want increased at this time. Mental Status Exam Mental Status Exam Narrative: Pt is alert and oriented; behavior is cooperative, friendly and calm; patient is not in distress; dressed in t-shirt with adequate hygiene; mood is described as good and affect congruent; eye contact appropriate; Speech is normal rate, volume and prosody and not pressured; no psychomotor agitation/retardation present; thought process is organized and goal directed; Thought content is on tx; otherwise pertinent to relevant topics and without any delusional content, paranoid ideations or grandiosity; denies any SI/HI. There is no evidence of perceptual disturbance. ?Patients insight and judgment are fair and adequate. Diagnostics Vital Signs (24Hr): Vital Signs - 24 hr 07/04/21 16:56 07/05/21 06:00 Temperature 96.8 F 97.7 F Pulse Rate 91 86 Respiratory Rate 16 16 Blood Pressure 133/73 111/77 Pulse Oximetry 98 98 BMI result Body Mass Index 26.2 Labs Results: 06/30/21 08:29 06/30/21 08:29 Labs: Laboratory Results - last 48 hr 07/04/21 07/05/21 06:40 06:21 POC Glucose 196 H 185 H Medications Medications Current Medications Acetaminophen (Acetaminophen 325 Mg Tablet) 650 mg PO Q6H PRN PRN Reason: Headache/Pain Mild Scale (1-3) Last Admin: 07/04/21 01:31 Dose: 650 mg Documented by: Al Hydroxide/Mg Hydroxide (Magnesium Hydrox/Alum Hydrox 30 Ml Oral.Susp) 30 ml PO Q6H PRN PRN Reason: Heartburn/Nausea Hydroxyzine HCl (Hydroxyzine Hcl 25 Mg Tablet) 25 mg PO Q6H PRN PRN Reason: Anxiety Loperamide HCl (Loperamide Hcl 2 Mg Capsule) 2 mg PO Q6H PRN PRN Reason: Diarrhea Magnesium Hydroxide (Milk Of Magnesia 30 Ml Oral.Susp) 30 ml PO DAILY PRN PRN Reason: Constipation Metformin HCl (Metformin Hcl 500 Mg Tablet) 500 mg PO BID [facility] Last Admin: 07/05/21 08:42 Dose: 500 mg Documented by: Ondansetron HCl (Ondansetron Odt 4 Mg Tab.Rapdis) 4 mg TRANSLINGU Q6H PRN PRN Reason: nausea/vomiting Sertraline HCl (Sertraline Hcl 25 Mg Tablet) 75 mg PO DAILY [facility] Last Admin: 07/05/21 08:42 Dose: 75 mg Documented by: Trazodone HCl (Trazodone Hcl 100 Mg Tablet) 100 mg PO BEDTIME [facility] Last Admin: 07/04/21 20:09 Dose: 100 mg Documented by: Trazodone HCl (Trazodone Hcl 50 Mg Tablet) 50 mg PO BEDTIME PRN PRN Reason: continued insomnia Allergies Allergies Allergy/AdvReac Type Severity Reaction Status Date / Time SHELLFISH Allergy Unknown ITCHY Uncoded 06/02/21 11:11 THROAT Assessment & Plan Assessment & Plan (1) MDD (major depressive disorder), recurrent episode, moderate: Status: Acute Code(s): F33.1 - Major depressive disorder, recurrent, moderate (2) Cocaine use disorder: Status: Acute Code(s): F14.10 - Cocaine abuse, uncomplicated Plan Abdias is a 36 y.o. Male who carries a dx of MDD, recurrent and cocaine use disorder. [place] [facility] [place] due to depression, SI, and med non- adherence x 3 weeks. Pt endorsed AH telling him to kill yourself.? Pt has been head banging due to AH. Sleep has been poor. Precipitating factors include that he is homeless. Utox positive for cannabis and cocaine. Not overly forthcoming in interview. Has sx of impulsivity, irritability (denies hx of TBI however per chart hx of head banging). started on zoloft (was prescrived by outpt provider but never took); job specification writer reviewed risks/side-effects. mood has improved, SI resolved -trouble sleeping; increasing trazodone to 100 mg q.h.s. (job specification writer reviewed risks/side effects and patient agrees to continue with this med) -increase trazodone resolved insomnia. Patient continues to be in a good mood, saying depression and SI remained fully resolved. He says he feels ready for discharge implants to state a friend house until his Section 8 housing is available on July 30. Patient is not in imminent risk for harm to self or others and his request for discharge honored. Discussed substance abuse. Patient said it is rare that he uses cocaine. Plan: Q15 min safety checks, CV Zoloft to 75mg (prescribed by outpt provider) Trazodone to 100mg qhs; 50mg prn dose loose stool resolved; stool samples/ labs unremarkable Monitor response to medications. Monitor for safety in the milieu. Discharge on stabilization. Patient seen. Chart reviewed. Discussed with team. Obtain collateral contact info?as needed I spent minutes with the patient and/or on the patient floor today, greater than?50% of which was spent counseling/coordinating care. Patient educated on: medication risk/benefits and substance abuse Informed Consent: understands Reason for contiued inpatient stay Substantial Risk for: stable for discharge
[2021-07-05 18:00] VITALS: BP 130/75; PULSE 88; RESP 20; TEMP 36.8; O2SAT 98
[2021-07-05] MEDS: Acetaminophen 325 MG TABLET 650 MG PO (21:04)
[2021-07-05] MEDS: traZODone HCL 100 MG TABLET PO (21:36)
[2021-07-06 06:00] VITALS: BP 114/75; PULSE 84; RESP 16; TEMP 36.6; O2SAT 98
[2021-07-06 06:24] LABS: Glucose, Whole Blood 206 mg/dL (60-115)
[2021-07-06] MEDS: Sertraline HCL 25 MG TABLET 75 MG PO (08:21)
[2021-07-06] MEDS: metFORMIN HCl 500 MG TABLET PO (08:22)
--- NOTE | 2021-07-06 09:23 | PM.PSYDC ---
DS: Providers Provider Date of Service: 07/06/21 Date of admission: 06/30/21 20:54 Date of discharge: 07/06/21 Primary care physician: Bozena Pryor MD Admitting clinician: Hamida Clark Attending physician on discharge: Tong Demarco DS: Diagnosis Discharge Diagnosis (1) MDD (major depressive disorder), recurrent episode, moderate: Status: Deleted (2) Cocaine use disorder: Status: Acute DS: Medications Discharge Medications Home Medications: Home Medications Medication Instructions Recorded Confirmed loratadine 10 mg tablet 1 tab PO QAM PRN 06/07/21 06/07/21 blood sugar diagnostic (FreeStyle 07/01/21 07/01/21 Lite Strips) Previous Rx's Medication Instructions Recorded blood sugar diagnostic (FreeStyle #100 ea 02/28/21 Lite Strips) blood-glucose meter (FreeStyle #1 ea 02/28/21 Lite Meter) lancets 28 gauge (FreeStyle #100 ea 02/28/21 Lancets) albuterol sulfate 90 mcg/actuation 2 puff INHALATION Q4-6H PRN 30 07/06/21 aerosol inhaler Days #8.5 g fluticasone propionate 50 1 spray INTRANASAL BID 30 Days #16 07/06/21 mcg/actuation nasal g spray,suspension metformin 500 mg tablet 500 mg PO BID 30 Days #60 tab 07/06/21 sertraline 25 mg tablet 75 mg PO DAILY 30 Days #90 tab 07/06/21 trazodone 100 mg tablet 100 mg PO BEDTIME PRN 30 Days #30 07/06/21 tab Mental Status Exam Mental Status Exam Narrative: Pt is alert and oriented; behavior is cooperative, friendly and calm; patient is not in distress; dressed in t-shirt with adequate hygiene; mood is described as good and affect congruent; eye contact appropriate; Speech is normal rate, volume and prosody and not pressured; no psychomotor agitation/retardation present; thought process is organized and goal directed; Thought content is on tx and discharge; otherwise pertinent to relevant topics and without any delusional content, paranoid ideations or grandiosity; denies any SI/HI. There is no evidence of perceptual disturbance. ?Patients insight and judgment are fair and adequate. Data Data Completed and Pending Completed studies during hospitalization [Text1]: 06/30/21 06/30/21 06/30/21 08:29 08:29 08:29 WBC 10.7 RBC 5.77 Hgb 15.8 Hct 48.3 MCV 83.7 MCH 27.4 MCHC 32.7 RDW 12.3 Plt Count 393 MPV 8.7 L Immature Gran % (Auto) 0.8 H Neut % (Auto) 52.7 Lymph % (Auto) 35.1 [place] % (Auto) 9.2 Eos % (Auto) 1.9 Baso % (Auto) 0.3 Lymph # (Auto) 3.8 [place] # (Auto) 1.0 Eos # (Auto) 0.2 Baso # (Auto) 0.0 Abs Immat Gran (auto) 0.09 H Absolute Neuts (auto) 5.6 Absolute Nucleated RBC 0.000 Nucleated RBC % (auto) 0.0 Sodium 139 Potassium 4.7 Chloride 102 Carbon Dioxide 28 Anion Gap 14 BUN 7 L Creatinine 0.89 Estim Creat Clear Calc 84.0 Estimated GFR > 60 POC Glucose Random Glucose 160 H Estimat Average Glucose Hemoglobin A1c % Calcium 10.1 Magnesium Total Bilirubin 0.4 AST 14 ALT 35 Alkaline Phosphatase 72 Total Protein 7.8 Albumin 4.6 Triglycerides Cholesterol LDL Cholesterol, Calc HDL Cholesterol Vitamin B12 Folate TSH Free T4 Stool Leukocytes, Qual Stl Giardia Antigen Salicylates < 5.0 L Urine Opiates Screen Urine Fentanyl Screen Acetaminophen < 1 Ur Barbiturates Screen Ur Phencyclidine Scrn Ur Amphetamines Screen U Benzodiazepines Scrn Urine Cocaine Screen U Marijuana (THC) Screen Ethyl Alcohol < 10 C. difficile Tox B Gene COVID-19 (ESE) COVID-19 Clin Com 06/30/21 06/30/21 07/01/21 10:17 13:23 07:06 WBC RBC Hgb Hct MCV MCH MCHC RDW Plt Count MPV Immature Gran % (Auto) Neut % (Auto) Lymph % (Auto) [place] % (Auto) Eos % (Auto) Baso % (Auto) Lymph # (Auto) [place] # (Auto) Eos # (Auto) Baso # (Auto) Abs Immat Gran (auto) Absolute Neuts (auto) Absolute Nucleated RBC Nucleated RBC % (auto) Sodium Potassium Chloride Carbon Dioxide Anion Gap BUN Creatinine Estim Creat Clear Calc Estimated GFR POC Glucose Random Glucose Estimat Average Glucose 180 Hemoglobin A1c % 7.9 Calcium Magnesium Total Bilirubin AST ALT Alkaline Phosphatase Total Protein Albumin Triglycerides Cholesterol LDL Cholesterol, Calc HDL Cholesterol Vitamin B12 Folate TSH Free T4 Stool Leukocytes, Qual Stl Giardia Antigen Salicylates Urine Opiates Screen Not Detected Urine Fentanyl Screen Not Detected Acetaminophen Ur Barbiturates Screen Not Detected Ur Phencyclidine Scrn Not Detected Ur Amphetamines Screen Not Detected U Benzodiazepines Scrn Not Detected Urine Cocaine Screen POSITIVE H U Marijuana (THC) Screen POSITIVE H Ethyl Alcohol C. difficile Tox B Gene COVID-19 (ESE) Negative COVID-19 Clin Com See Note 07/01/21 07/01/21 07/01/21 07:06 07:06 08:31 WBC RBC Hgb Hct MCV MCH MCHC RDW Plt Count MPV Immature Gran % (Auto) Neut % (Auto) Lymph % (Auto) [place] % (Auto) Eos % (Auto) Baso % (Auto) Lymph # (Auto) [place] # (Auto) Eos # (Auto) Baso # (Auto) Abs Immat Gran (auto) Absolute Neuts (auto) Absolute Nucleated RBC Nucleated RBC % (auto) Sodium Potassium Chloride Carbon Dioxide Anion Gap BUN Creatinine Estim Creat Clear Calc Estimated GFR POC Glucose 211 H Random Glucose Estimat Average Glucose Hemoglobin A1c % Calcium Magnesium 2.2 Total Bilirubin AST ALT Alkaline Phosphatase Total Protein Albumin Triglycerides 331 Cholesterol 204 LDL Cholesterol, Calc 103 HDL Cholesterol 35 Vitamin B12 301 Folate 9.2 TSH 1.19 Free T4 0.81 Stool Leukocytes, Qual Stl Giardia Antigen Salicylates Urine Opiates Screen Urine Fentanyl Screen Acetaminophen Ur Barbiturates Screen Ur Phencyclidine Scrn Ur Amphetamines Screen U Benzodiazepines Scrn Urine Cocaine Screen U Marijuana (THC) Screen Ethyl Alcohol C. difficile Tox B Gene COVID-19 (ESE) COVID-19 Circle Com 07/02/21 07/02/21 07/02/21 06:20 19:30 19:30 WBC RBC Hgb Hct MCV MCH MCHC RDW Plt Count MPV Immature Gran % (Auto) Neut % (Auto) Lymph % (Auto) [place] % (Auto) Eos % (Auto) Baso % (Auto) Lymph # (Auto) [place] # (Auto) Eos # (Auto) Baso # (Auto) Abs Immat Gran (auto) Absolute Neuts (auto) Absolute Nucleated RBC Nucleated RBC % (auto) Sodium Potassium Chloride Carbon Dioxide Anion Gap BUN Creatinine Estim Creat Clear Calc Estimated GFR POC Glucose 269 H Random Glucose Estimat Average Glucose Hemoglobin A1c % Calcium Magnesium Total Bilirubin AST ALT Alkaline Phosphatase Total Protein Albumin Triglycerides Cholesterol LDL Cholesterol, Calc HDL Cholesterol Vitamin B12 Folate TSH Free T4 Stool Leukocytes, Qual Stl Giardia Antigen SEE NOTE Salicylates Urine Opiates Screen Urine Fentanyl Screen Acetaminophen Ur Barbiturates Screen Ur Phencyclidine Scrn Ur Amphetamines Screen U Benzodiazepines Scrn Urine Cocaine Screen U Marijuana (THC) Screen Ethyl Alcohol C. difficile Tox B Gene NEGATIVE COVID-19 (ESE) COVID-19 Clin Com 07/02/21 07/03/21 07/04/21 19:30 07:51 06:40 WBC RBC Hgb Hct MCV MCH MCHC RDW Plt Count MPV Immature Gran % (Auto) Neut % (Auto) Lymph % (Auto) [place] % (Auto) Eos % (Auto) Baso % (Auto) Lymph # (Auto) [place] # (Auto) Eos # (Auto) Baso # (Auto) Abs Immat Gran (auto) Absolute Neuts (auto) Absolute Nucleated RBC Nucleated RBC % (auto) Sodium Potassium Chloride Carbon Dioxide Anion Gap BUN Creatinine Estim Creat Clear Calc Estimated GFR POC Glucose 246 H 196 H Random Glucose Estimat Average Glucose Hemoglobin A1c % Calcium Magnesium Total Bilirubin AST ALT Alkaline Phosphatase Total Protein Albumin Triglycerides Cholesterol LDL Cholesterol, Calc HDL Cholesterol Vitamin B12 Folate TSH Free T4 Stool Leukocytes, Qual NEGATIVE Stl Giardia Antigen Salicylates Urine Opiates Screen Urine Fentanyl Screen Acetaminophen Ur Barbiturates Screen Ur Phencyclidine Scrn Ur Amphetamines Screen U Benzodiazepines Scrn Urine Cocaine Screen U Marijuana (THC) Screen Ethyl Alcohol C. difficile Tox B Gene COVID-19 (ESE) COVID-19 Clin Com 07/05/21 07/06/21 07/06/21 06:21 06:14 08:14 WBC RBC Hgb Hct MCV MCH MCHC RDW Plt Count MPV Immature Gran % (Auto) Neut % (Auto) Lymph % (Auto) [place] % (Auto) Eos % (Auto) Baso % (Auto) Lymph # (Auto) [place] # (Auto) Eos # (Auto) Baso # (Auto) Abs Immat Gran (auto) Absolute Neuts (auto) Absolute Nucleated RBC Nucleated RBC % (auto) Sodium Potassium Chloride Carbon Dioxide Anion Gap BUN Creatinine Pending Estim Creat Clear Calc Pending Estimated GFR Pending POC Glucose 185 H 206 H Random Glucose Estimat Average Glucose Hemoglobin A1c % Calcium Magnesium Total Bilirubin AST ALT Alkaline Phosphatase Total Protein Albumin Triglycerides Cholesterol LDL Cholesterol, Calc HDL Cholesterol Vitamin B12 Folate TSH Free T4 Stool Leukocytes, Qual Stl Giardia Antigen Salicylates Urine Opiates Screen Urine Fentanyl Screen Acetaminophen Ur Barbiturates Screen Ur Phencyclidine Scrn Ur Amphetamines Screen U Benzodiazepines Scrn Urine Cocaine Screen U Marijuana (THC) Screen Ethyl Alcohol C. difficile Tox B Gene COVID-19 (ESE) COVID-19 Clin Com 07/02/21 19:30 Stool Stool Culture - Final DS: Summary Hospital Course Hospital Course: Abdias is a 36 y.o. Male who carries a dx of MDD, recurrent and cocaine use disorder. He presented to [facility] [place] [facility] [place]30/21 due to depression, SI, and med non-adherence x 3 weeks. Pt endorsed AH telling him to kill yourself.? Pt has been head banging due to AH. Sleep has been poor. Precipitating factors include that he is homeless. Utox positive for cannabis and cocaine. Not overly forthcoming in interview. Has sx of impulsivity, irritability (denies hx of TBI however per chart hx of head banging). Hx of Trauma as a child, but denies ptsd symptoms. On admission patient was depressed but SI resolved. He was sleepy at 1st however was able to rest and became engaged in treatment. Patient attended groups and was appropriate with peers and staff. He was started and titrated on Zoloft to good effect. Patient's mood significantly improved and SI remained resolved. Patient did have some trouble sleeping and trazodone was increased to 100 mg to good effect. Patient remained in a good mood, attending groups and feeling that depression Was finally being adequately treated. While on the unit he demonstrated good behavioral and impulse control. After few days, Patient felt ready to discharge and asked for an outpatient therapist. Marina Porter discussed positive UDS for cocaine and patient said it is atypical for him to use it, it was not available and he used to stay up at night.? He says otherwise he rarely does so and that it is not a problem. Marina Porter discussed discharge and patient said that he is feeling ready.? He is future oriented and plans to go and stay with a friend while waiting for Section 8 housing which he says is pending and will be available for him on July 30.? Patient has a contact with an out reach program it was helped him set up Section 8 housing. Patient is not in imminent risk for harm to self or others and Is appropriate to continue treatment as an outpatient. Time spent discussing smoking cessation with patient: 3 to 10 minutes Status at Discharge Functional status at discharge: independent ambulation Overall status at discharge: patient is back to baseline Time Spent with Patient Time attestation: Total time spent providing and/or coordinating discharge services: Time spent: Less than 30 minutes Discharge Plan Discharge Patient Disposition: Xfer Other Discharge Diagnosis: MDD, recurrent, severe without psychotic features, in full remission Referrals: Bozena Lorenz MD [Primary Care Provider] - 07/18/21 10:15 am (IN OFFICE) Discharge Medications: New sertraline 25 mg Tablet 75 mg PO DAILY 30 Days Qty: 90 1RF trazodone 100 mg Tablet 100 mg PO BEDTIME PRN (Reason: insomnia) 30 Days Qty: 30 1RF Continued (DME) FreeStyle Lite Strips Strip MISCELLANEOUS BID 0RF metformin 500 mg tablet 500 mg PO BID 30 Days Qty: 60 0RF albuterol sulfate 90 mcg/actuation HFA aerosol inhaler 2 puff inhalation Q4-6H PRN (Reason: shortness of breath or wheezing) 30 Days Qty: 8.5 0RF fluticasone propionate 50 mcg/actuation spray,suspension 1 spray intranasal BID 30 Days Qty: 16 0RF Rx Instructions: administer into each nostril (DME) blood-glucose meter [FreeStyle Lite Meter] Kit See Rx Instructions .Route Qty: 1 0RF Rx Instructions: As directed (DME) lancets [FreeStyle Lancets] 28 gauge misc See Rx Instructions .Route Qty: 100 0RF Rx Instructions: As directed (DME) FreeStyle Lite Strips Strip See Rx Instructions .Route Qty: 100 0RF Rx Instructions: As directed loratadine 10 mg tablet 1 tab PO QAM PRN (Reason: Allergic Symptoms) 0RF Discontinued doxycycline hyclate 100 mg capsule 100 mg PO BID 7 Days Qty: 14 0RF cephalexin 500 mg tablet 500 mg PO QID 7 Days Qty: 28 0RF oxycodone 5 mg tablet 5 mg PO Q6H PRN (Reason: pain) Qty: 7 0RF sertraline 25 mg tablet 1 tab PO DAILY 0RF sertraline 25 mg tablet 1 tab PO DAILY 0RF Label Comments: never picked up script trazodone 50 mg tablet 1 tab PO BEDTIME 0RF loperamide [Anti-Diarrheal (loperamide)] 2 mg tablet 2 mg PO Q4H MDD 16 MG PRN (Reason: Diarrhea) 0RF acetaminophen 500 mg tablet 2 tab PO Q8H PRN (Reason: Pain) 0RF albuterol sulfate [ProAir HFA] 90 mcg/actuation HFA aerosol inhaler 2 puff PO Q4-6H PRN (Reason: Wheezing) 0RF fluticasone propionate 50 mcg/actuation spray,suspension 2 spray intranasal DAILY PRN (Reason: Allergy Symptoms) 0RF metformin 500 mg tablet 500 mg PO BID Qty: 60 0RF cephalexin 500 mg capsule 500 mg PO BID 9 Days Qty: 18 0RF doxycycline hyclate 100 mg capsule 100 mg PO BID Qty: 18 0RF loratadine 10 mg capsule 10 mg PO DAILY PRN (Reason: allergy symptoms) Qty: 14 0RF Discharge Orders: Discharge Order (Routine); Ordered 07/06/21 Ordered By: Tong Demarco Diet: regular diet Activity on Discharge: As tolerated Stand Alone Forms: Patient Portal Discharge page Care Plan Goals: Maintain mood and safe behaviors Take medications as prescribed Continue to pursue sobriety Practice coping skills Continue with outpatient providers and reach out to them as needed Health Concerns: Mood stability and behaviors Diabetes Sobriety Plan of Treatment: Follow up with your PCP, psychiatric provider and other outpatient providers regarding above concerns Take medications as prescribed Assessment: Risk assessment at time of discharge:? Patient was interviewed prior to discharge and found to be fully oriented and without any SI or HI. Patient has insight and demonstrates good judgment in terms of wanting to pursue treatment. Patient is not in imminent risk of harm to self or others and has a safety plan that includes presenting to the closest ER or calling 911 if feeling unsafe.? Patient has been observed closely by nursing and unit staff throughout admission; patient has not engaged in any behaviors that suggest dangerousness to self or others and has demonstrated appropriate behaviors and impulse control
[2021-07-06 09:39] LABS: Creatinine Clr Calc Pharmacy 85.2; Estimated Glomerular Filt Rate > 60
[2021-07-06] MEDS: Naloxone HCl Nasal TAKE HOME 4 MG SPRAY NOSTRILALT (12:13)
== END 2021-07-06 16:27 | disposition other institution (70) | DRG 751 ==
LOC: HO.ED 07:15 → HO.PM5 21:01
PROVIDERS: Psychiatry & Neurology Psychiatry; Admitting Provider Registered Nurse; Emergency Provider Emergency Medicine; PCP Internal Medicine; Visit Provider Psychiatry & Neurology Psychiatry
DX: F33.1 Major depressive disorder, recurrent, moderate (principal); R45.851 Suicidal ideations; Z91.14 Patient's other noncompliance with medication regimen; F17.210 Nicotine dependence, cigarettes, uncomplicated; F14.10 Cocaine abuse, uncomplicated; Z23 Encounter for immunization; Z20.822 Contact with and (suspected) exposure to COVID-19; Z91.51 Personal history of suicidal behavior; Z59.02 Unsheltered homelessness; Z71.6 Tobacco abuse counseling; Z79.51 Long term (current) use of inhaled steroids; Z79.84 Long term (current) use of oral hypoglycemic drugs; Z79.899 Other long term (current) drug therapy
CPT/HCPCS: 36415; 80053; 80061; 80143; 80179; 80307; 82077; 82565; 82607; 82746; 82947; 83036; 83735; 84439; 84443; 85025; 87045; 87046; 87329; 87493; 87635; 89055; 90686; 93005; 99285

== ENCOUNTER 2021-10-16 09:07 | Emergency (ER) | payer MEDICAID, SELFPAY ==
[2021-10-16 09:09] VITALS: BP 131/76; PULSE 74; RESP 18; TEMP 36.4; O2SAT 96; BMI 30.2
[2021-10-16 09:20] LABS: MANUAL DIFF FLAG NO
[2021-10-16 09:22] LABS: Basophils Percent Auto 0.3 % (0-2); Eosinophils Absolute Auto 0.2 X10*3/uL (0.0-0.4); Eosinophils Percent Auto 1.7 % (0-4); Hematocrit 47.8 % (42.0-52.0); Hemoglobin 16.7 g/dl (14.0-18.0); Imm Gran Abs Auto 0.08 X10*3/uL (0.00-0.03); Imm Gran Pct Auto 0.7 % (0.0-0.4); Lymphocytes Absolute Auto 4.8 X10*3/uL (1.2-4.9); Lymphocytes Percent Auto 41.5 % (20-40); Mean Corpuscular HGB Conc 34.9 g/dl (31.0-36.0); Mean Corpuscular Hemoglobin 28.3 pg (27.0-33.0); Mean Platelet Volume 9.2 fL (9.4-12.4); Monocytes Absolute Auto 0.9 X10*3/uL (0.1-1.2); Monocytes Percent Auto 7.9 % (2-11); Neutrophils Absolute Auto 5.5 x10*3/uL (2.0-8.3); Neutrophils Percent Auto 47.9 % (45-73); Platelet Count 388 X10*3/uL (160-400); Red Cell Distribution Width 12.2 % (11.0-16.0); White Blood Count 11.5 X10*3/uL (4.8-10.8)
[2021-10-16 09:37] LABS: COVID-19 Test Negative (Negative); IDNOW Serial# 9DB6401D
[2021-10-16 10:01] LABS: Alanine Aminotransferase 53 U/L (0-40); Albumin Level 4.3 g/dL (3.5-5.0); Alkaline Phosphatase 96 U/L (39-117); Anion Gap 17 (12-20); Aspartate Amino Transferase 38 U/L (5-37); Bilirubin Total < 0.2 mg/dL (0.0-1.0); Blood Urea Nitrogen 19 mg/dL (9-16); Calcium 9.9 mg/dL (8.4-10.2); Carbon Dioxide 23 mmol/L (22-29); Chloride 99 mmol/L (96-108); Creatinine Clr Calc Pharmacy 73.2; Estimated Glomerular Filt Rate > 60; Glucose Random 426 mg/dL (60-115); Potassium 5.3 mmol/L (3.3-5.1); Sodium 134 mmol/L (135-145); Total Protein 7.8 g/dL (6.5-8.0)
== END 2021-10-16 13:57 | disposition left against medical advice (07) ==
PROVIDERS: Emergency Provider Emergency Medicine; PCP Internal Medicine
DX: Z76.0 Encounter for issue of repeat prescription (principal); Z20.822 Contact with and (suspected) exposure to COVID-19; Z79.899 Other long term (current) drug therapy
CPT/HCPCS: 80053; 85025; 87635; 99281; 99283

== ENCOUNTER 2022-03-27 13:42 | Emergency (ER) | payer MEDICAID, SELFPAY ==
[2022-03-27 15:49] VITALS: BP 129/89; PULSE 87; RESP 18; TEMP 36.7; O2SAT 99; BMI 26.4
--- NOTE | 2022-03-27 15:52 | ED.GENADULT ---
HPI - General Adult General Chief complaint: Recheck/Abnormal Lab/Rx <ROSANGELA Taylor - Last Filed: 03/27/22 15:53> Stated complaint: High blood sugar 500+ <ROSANGELA Taylor - Last Filed: 03/27/22 15:53> Time Seen by Provider: 03/27/22 19:31 <ROSANGELA Taylor - Last Filed: 03/27/22 15:53> Source: patient <Soila Parham NP - Last Filed: 03/28/22 02:08> Mode of arrival: ambulatory <Soila Parham NP - Last Filed: 03/28/22 02:08> Limitations: no limitations <Soila Parham NP - Last Filed: 03/28/22 02:08> History of Present Illness HPI narrative: 36-year-old male presents for elevated blood sugar. States that he ran out of his metformin a few days ago and has not maintained a proper diet. When he checked his blood sugar 2 days ago it read high. <Soila Parham NP - Last Filed: 03/28/22 02:08> Onset (ago): day(s) <Soila Parham NP - Last Filed: 03/28/22 02:08> Severity: mild <Soila Parham NP - Last Filed: 03/28/22 02:08> Associated symptoms: denies other symptoms <Soila Parham NP - Last Filed: 03/28/22 02:08> Related Data Home medications: Home Medications Medication Instructions Recorded Confirmed loratadine 10 mg tablet 1 tab PO QAM PRN Allergic Symptoms 06/07/21 06/07/21 blood sugar diagnostic (FreeStyle 07/01/21 07/01/21 Lite Strips) Previous Rx's Medication Instructions Recorded blood sugar diagnostic (FreeStyle #100 ea 02/28/21 Lite Strips) blood-glucose meter (FreeStyle #1 ea 02/28/21 Lite Meter kit) lancets 28 gauge (FreeStyle #100 ea 02/28/21 Lancets) albuterol sulfate 90 mcg/actuation 2 puff inhalation Q4-6H PRN 07/06/21 aerosol inhaler shortness of breath or wheezing 30 days #8.5 grams fluticasone propionate 50 1 spray intranasal BID 30 days #16 07/06/21 mcg/actuation nasal grams spray,suspension metformin 500 mg tablet 500 mg PO BID 30 days #60 tabs 07/06/21 sertraline 25 mg tablet 75 mg PO DAILY 30 days #90 tabs 07/06/21 trazodone 100 mg tablet 100 mg PO BEDTIME PRN insomnia 30 07/06/21 days #30 tabs miconazole nitrate 2 % topical 1 spray topical BID #133 grams 03/27/22 spray powder (Lotrimin AF Jock Itch Powder) <ROSANGELA Taylor Last Filed: 03/27/22 15:53> Allergies/adverse reactions: Allergies Allergy/AdvReac Type Severity Reaction Status Date / Time SHELLFISH Allergy Unknown ITCHY Uncoded 03/27/22 15:55 THROAT <ROSANGELA Taylor Last Filed: 03/27/22 15:53> Review of Systems Review of Systems: Constitutional: No Fever, No Chills Cardiovascular: No Chest Pain, No SOB Respiratory: No Cough, No Dyspnea Gastrointestinal: No Nausea, No Vomiting, No Diarrhea, No abdominal Pain Genitourinary: No Dysuria, No Hematuria Musculoskeletal: No joint pain, No Myalgias, No Joint Swelling Skin: No Skin lacerations, No rash Neuro: No Weakness, No Numbness, No Paresthesias, No Loss of Consciousness, No Dizziness, No Headache <Soila Parham NP - Last Filed: 03/28/22 02:08> Yes all other systems are reviewed and are negative <Soila Parham NP - Last Filed: 03/28/22 02:08> FORMERLY [facility] Past Medical History Attestation statement: The following information was validated with the patient. <Soila Parham NP - Last Filed: 03/28/22 02:08> Source: old records reviewed <Soila Parham NP - Last Filed: 03/28/22 02:08> Medical History: Medical History Asthma Depression Diabetes MDD (major depressive disorder), recurrent severe, without psychosis <ROSANGELA Taylor Last Filed: 03/27/22 15:53> Social History Social History: Social History Household Members: None Housing: Homeless Do you presently have visiting nurse or other home services: No Patient Tobacco Use Status: Current someday Tobacco user Tobacco use type: Cigarette Cigarettes Per Day: 2 Years Smoked: 15 e-Cigarette/Vaping Use: Currently Using Second Hand Smoke Exposure: Yes Substance Use Type: Crack/Cocaine and Marijuana Advance Directives: No Advance Directives Information Provided: No service: No Sexual orientation: Cisgender <ROSANGELA Taylor - Last Filed: 03/27/22 15:53> Physical Exam ED Vital Signs: Vital Signs - 24 hr 03/27/22 15:49 03/27/22 21:24 03/27/22 21:54 Temperature 98.1 F 97.7 F Pulse Rate 87 86 76 Respiratory Rate 18 17 Blood Pressure 129/89 131/76 146/81 H Pulse Oximetry 99 98 98 Oxygen Delivery Method Room Air Room Air Room Air BMI result Body Mass Index 26.4 <ROSANGELA Taylor - Last Filed: 03/27/22 15:53> Vital Signs - 24 hr 03/27/22 15:49 03/27/22 21:24 03/27/22 21:54 Temperature 98.1 F 97.7 F Pulse Rate 87 86 76 Respiratory Rate 18 17 Blood Pressure 129/89 131/76 146/81 H Pulse Oximetry 99 98 98 Oxygen Delivery Method Room Air Room Air Room Air BMI result Body Mass Index 26.4 <Soila Parham NP - Last Filed: 03/28/22 02:08> Appearance: Alert. Oriented X3. No acute distress. Eyes: Pupils equal, round and reactive to light. ENT: Pharynx normal. Neck: Normal inspection. Neck supple. CVS: Normal heart rate and rhythm. Pulses normal. Respiratory: No respiratory distress. Breath sounds normal. Abdomen: Soft and nontender. Skin: Skin warm and dry. Normal skin color. Normal skin turgor. Extremities: No lower extremity edema. Gait well-balanced well coordinated. Neuro: No motor deficit. No sensory deficit. Cranial nerves 2-12 intact. <Soila Parham NP - Last Filed: 03/28/22 02:08> Course Course Course Narrative: RME: 1552 36 year old presents with high blood sugar X5 days, tells me he ran out of medications. His meter on home has read HIGH a few times. Also reports his private area is cracking. No recent steroid use. No hx of DKA. PE benign Plan- labs <ROSANGELA Taylor - Last Filed: 03/27/22 15:53> RME: 1552 36 year old presents with high blood sugar X5 days, tells me he ran out of medications. His meter on home has read HIGH a few times. Also reports his private area is cracking. No recent steroid use. No hx of DKA. PE benign Plan- labs 36-year-old male presents with concerns about elevated blood pressure after being out of his metformin for several days. He tested his blood sugars 2 or 3 days ago and it read high. Labs were drawn while he was in the emergency department waiting room, blood sugar is 396. At this time I do not feel that insulin is an appropriate treatment for this patient. I will give patient a L of fluid and his metformin. He has even unlabored respirations, it does not have the clinical symptoms of diabetic ketoacidosis. Patient will get his metformin tomorrow morning. Patient also reports a fungal rash to his bilateral inguinal area. Rash is consistent with yeast. 19:00 patient states to feel better. Plan of care is to discharge home. Patient verbalized understanding of and agrees to plan of care. Verbalized understanding of signs symptoms indicating need for emergent intervention <Soila Parham NP - Last Filed: 03/28/22 02:08> Medications Administered Discontinued Medications Generic Name Dose Route Start Last Admin Trade Name Freq PRN Reason Stop Dose Admin Sodium Chloride 1,000 mls @ 999 mls/hr 03/27/22 19:45 03/27/22 21:53 Ns IVCONT 03/27/22 20:45 Infused .Q1H1M JACOB Infusion Metformin HCl 1,000 mg 03/27/22 21:18 03/27/22 21:53 Metformin Hcl 1,000 Mg Tablet PO 03/27/22 21:19 1,000 mg ONCE ONE Administration <ROSANGELA Taylor - Last Filed: 03/27/22 15:53> Medications Administered Discontinued Medications Generic Name Dose Route Start Last Admin Trade Name Freq PRN Reason Stop Dose Admin Sodium Chloride 1,000 mls @ 999 mls/hr 03/27/22 19:45 03/27/22 21:53 Ns IVCONT 03/27/22 20:45 Infused .Q1H1M JACOB Infusion Metformin HCl 1,000 mg 03/27/22 21:18 03/27/22 21:53 Metformin Hcl 1,000 Mg Tablet PO 03/27/22 21:19 1,000 mg ONCE ONE Administration <Soila Parham NP - Last Filed: 03/28/22 02:08> Medical Decision Making Differential Diagnosis Differential Diagnoses: The differential diagnosis associated with the presentation includes <Soila Parham NP - Last Filed: 03/28/22 02:08> Admission/Observation Consideration of admission/observation: Escalation of care including admission/observation considered <Soila Parham NP - Last Filed: 03/28/22 02:08> Patient does not have any indication of diabetic ketoacidosis or hyperosmolar symptoms. Plan care discharge home. <Soila Parham NP - Last Filed: 03/28/22 02:08> Lab Data MDM Lab Attestation statement: I reviewed the patient's lab results. <Soila Parham NP - Last Filed: 03/28/22 02:08> Result Diagrams: : 03/27/22 17:08 03/27/22 17:08 <ROSANGELA Taylor - Last Filed: 03/27/22 15:53> Labs: Lab Results 03/27/22 03/27/22 03/27/22 Range/Units 17:08 17:08 17:11 WBC 9.7 (4.8-10.8) X10*3/uL RBC 6.04 H (4.60-5.80) X10*6/uL Hgb 16.4 (14.0-18.0) g/dl Hct 48.9 (42.0-52.0) % MCV 81.0 (80.0-98.0) fL MCH 27.2 (27.0-33.0) pg MCHC 33.5 (31.0-36.0) g/dl RDW 11.9 (11.0-16.0) % Plt Count 349 (160-400) X10*3/uL MPV 8.9 L (9.4-12.4) fL Immature Gran % (Auto) 0.8 H (0.0-0.4) % Neut % (Auto) 58.2 (45-73) % Lymph % (Auto) 30.8 (20-40) % [place]urel % (Auto) 7.7 (2-11) % Eos % (Auto) 2.1 (0-4) % Baso % (Auto) 0.4 (0-2) % Lymph # (Auto) 3.0 (1.2-4.9) X10*3/uL [place] # (Auto) 0.8 (0.1-1.2) X10*3/uL Eos # (Auto) 0.2 (0.0-0.4) X10*3/uL Baso # (Auto) 0.0 (0.0-0.2) X10*3/uL Abs Immat Gran (auto) 0.08 H (0.00-0.03) X10*3/uL Absolute Neuts (auto) 5.6 (2.0-8.3) x10*3/uL Absolute Nucleated RBC 0.000 (0.0-0.012) X10*3/uL Nucleated RBC % (auto) 0.0 (0.0-0.2) /100WBC VBG pH 7.37 (7.32-7.43) VBG pCO2 44 mmHg VBG pO2 24 mmHg VBG HCO3 26 (22-26) mmol/L VBG O2 Saturation < 30.0 % VBG Base Excess 0.7 mmol/L Sodium 133 L (135-145) mmol/L Potassium 4.1 D (3.3-5.1) mmol/L Chloride 97 (96-108) mmol/L Carbon Dioxide 28 (22-29) mmol/L Anion Gap 12 (12-20) BUN 11 (9-16) mg/dL Creatinine 0.83 (0.5-1.4) mg/dL Estim Creat Clear Calc 97.8 Estimated GFR > 60 POC Glucose (60-115) mg/dL Random Glucose 396 H* (60-115) mg/dL Calcium 9.2 D (8.4-10.2) mg/dL Total Bilirubin 0.3 (0.0-1.0) mg/dL AST 20 (5-37) U/L ALT 43 H (0-40) U/L Alkaline Phosphatase 94 (39-117) U/L Total Protein 7.8 (6.5-8.0) g/dL Albumin 4.4 (3.5-5.0) g/dL Urine Color Urine Appearance Urine pH (5.0-9.0) Ur Specific [place] (1.005-1.025) Urine Protein (Neg-Trace) mg/dL Urine Glucose (UA) (Negative) mg/dL Urine Ketones (Negative) mg/dL Urine Blood (Negative) Urine Nitrite (Negative) Ur Leukocyte Esterase (Negative) Urine RBC (0-2) /HPF Urine WBC (0-5) /HPF Ur Squamous Epith Cells (0-2) /HPF Urine Bacteria (None Seen) Hyaline Casts (0-2) /LPF Urine Yeast Acetone, Qual Negative (Negative) 03/27/22 03/27/22 Range/Units 20:59 21:14 WBC (4.8-10.8) X10*3/uL RBC (4.60-5.80) X10*6/uL Hgb (14.0-18.0) g/dl Hct (42.0-52.0) % MCV (80.0-98.0) fL MCH (27.0-33.0) pg MCHC (31.0-36.0) g/dl RDW (11.0-16.0) % Plt Count (160-400) X10*3/uL MPV (9.4-12.4) fL Immature Gran % (Auto) (0.0-0.4) % Neut % (Auto) (45-73) % Lymph % (Auto) (20-40) % Laurel % (Auto) (2-11) % Eos % (Auto) (0-4) % Baso % (Auto) (0-2) % Lymph # (Auto) (1.2-4.9) X10*3/uL [place] # (Auto) (0.1-1.2) X10*3/uL Eos # (Auto) (0.0-0.4) X10*3/uL Baso # (Auto) (0.0-0.2) X10*3/uL Abs Immat Gran (auto) (0.00-0.03) X10*3/uL Absolute Neuts (auto) (2.0-8.3) x10*3/uL Absolute Nucleated RBC (0.0-0.012) X10*3/uL Nucleated RBC % (auto) (0.0-0.2) /100WBC VBG pH (7.32-7.43) VBG pCO2 mmHg VBG pO2 mmHg VBG HCO3 (22-26) mmol/L VBG O2 Saturation % VBG Base Excess mmol/L Sodium (135-145) mmol/L Potassium (3.3-5.1) mmol/L Chloride (96-108) mmol/L Carbon Dioxide (22-29) mmol/L Anion Gap (12-20) BUN (9-16) mg/dL Creatinine (0.5-1.4) mg/dL Estim Creat Clear Calc Estimated GFR POC Glucose 328 H (60-115) mg/dL Random Glucose (60-115) mg/dL Calcium (8.4-10.2) mg/dL Total Bilirubin (0.0-1.0) mg/dL AST (5-37) U/L ALT (0-40) U/L Alkaline Phosphatase (39-117) U/L Total Protein (6.5-8.0) g/dL Albumin (3.5-5.0) g/dL Urine Color Yellow Urine Appearance Clear Urine pH 5.5 (5.0-9.0) Ur Specific [place] >= 1.030 H (1.005-1.025) Urine Protein Negative (Neg-Trace) mg/dL Urine Glucose (UA) >=1000 H (Negative) mg/dL Urine Ketones Negative (Negative) mg/dL Urine Blood Small (1+) H (Negative) Urine Nitrite Negative (Negative) Ur Leukocyte Esterase Small (1+) H (Negative) Urine RBC >20 H (0-2) /HPF Urine WBC 21-50 H (0-5) /HPF Ur Squamous Epith Cells 6-10 (0-2) /HPF Urine Bacteria Trace (None Seen) Hyaline Casts 0-2 (0-2) /LPF Urine Yeast Present Acetone, Qual (Negative) <ROSANGELA Taylor - Last Filed: 03/27/22 15:53> Lab Results 03/27/22 03/27/2203/27/22 Range/Units 17:08 17:08 17:11 WBC 9.7 (4.8-10.8) X10*3/uL RBC 6.04 H (4.60-5.80) X10*6/uL Hgb 16.4 (14.0-18.0) g/dl Hct 48.9 (42.0-52.0) % MCV 81.0 (80.0-98.0) fL MCH 27.2 (27.0-33.0) pg MCHC 33.5 (31.0-36.0) g/dl RDW 11.9 (11.0-16.0) % Plt Count 349 (160-400) X10*3/uL MPV 8.9 L (9.4-12.4) fL Immature Gran % (Auto) 0.8 H (0.0-0.4) % Neut % (Auto) 58.2 (45-73) % Lymph % (Auto) 30.8 (20-40) % Laurel % (Auto) 7.7 (2-11) % Eos % (Auto) 2.1 (0-4) % Baso % (Auto) 0.4 (0-2) % Lymph # (Auto) 3.0 (1.2-4.9) X10*3/uL [place]urel # (Auto) 0.8 (0.1-1.2) X10*3/uL Eos # (Auto) 0.2 (0.0-0.4) X10*3/uL Baso # (Auto) 0.0 (0.0-0.2) X10*3/uL Abs Immat Gran (auto) 0.08 H (0.00-0.03) X10*3/uL Absolute Neuts (auto) 5.6 (2.0-8.3) x10*3/uL Absolute Nucleated RBC 0.000 (0.0-0.012) X10*3/uL Nucleated RBC % (auto) 0.0 (0.0-0.2) /100WBC VBG pH 7.37 (7.32-7.43) VBG pCO2 44 mmHg VBG pO2 24 mmHg VBG HCO3 26 (22-26) mmol/L VBG O2 Saturation < 30.0 % VBG Base Excess 0.7 mmol/L Sodium 133 L (135-145) mmol/L Potassium 4.1 D (3.3-5.1) mmol/L Chloride 97 (96-108) mmol/L Carbon Dioxide 28 (22-29) mmol/L Anion Gap 12 (12-20) BUN 11 (9-16) mg/dL Creatinine 0.83 (0.5-1.4) mg/dL Estim Creat Clear Calc 97.8 Estimated GFR > 60 POC Glucose (60-115) mg/dL Random Glucose 396 H* (60-115) mg/dL Calcium 9.2 D (8.4-10.2) mg/dL Total Bilirubin 0.3 (0.0-1.0) mg/dL AST 20 (5-37) U/L ALT 43 H (0-40) U/L Alkaline Phosphatase 94 (39-117) U/L Total Protein 7.8 (6.5-8.0) g/dL Albumin 4.4 (3.5-5.0) g/dL Urine Color Urine Appearance Urine pH (5.0-9.0) Ur Specific [place] (1.005-1.025) Urine Protein (Neg-Trace) mg/dL Urine Glucose (UA) (Negative) mg/dL Urine Ketones (Negative) mg/dL Urine Blood (Negative) Urine Nitrite (Negative) Ur Leukocyte Esterase (Negative) Urine RBC (0-2) /HPF Urine WBC (0-5) /HPF Ur Squamous Epith Cells (0-2) /HPF Urine Bacteria (None Seen) Hyaline Casts (0-2) /LPF Urine Yeast Acetone, Qual Negative (Negative) 03/27/22 03/27/22 Range/Units 20:59 21:14 WBC (4.8-10.8) X10*3/uL RBC (4.60-5.80) X10*6/uL Hgb (14.0-18.0) g/dl Hct (42.0-52.0) % MCV (80.0-98.0) fL MCH (27.0-33.0) pg MCHC (31.0-36.0) g/dl RDW (11.0-16.0) % Plt Count (160-400) X10*3/uL MPV (9.4-12.4) fL Immature Gran % (Auto) (0.0-0.4) % Neut % (Auto) (45-73) % Lymph % (Auto) (20-40) % [place] % (Auto) (2-11) % Eos % (Auto) (0-4) % Baso % (Auto) (0-2) % Lymph # (Auto) (1.2-4.9) X10*3/uL [place] # (Auto) (0.1-1.2) X10*3/uL Eos # (Auto) (0.0-0.4) X10*3/uL Baso # (Auto) (0.0-0.2) X10*3/uL Abs Immat Gran (auto) (0.00-0.03) X10*3/uL Absolute Neuts (auto) (2.0-8.3) x10*3/uL Absolute Nucleated RBC (0.0-0.012) X10*3/uL Nucleated RBC % (auto) (0.0-0.2) /100WBC VBG pH (7.32-7.43) VBG pCO2 mmHg VBG pO2 mmHg VBG HCO3 (22-26) mmol/L VBG O2 Saturation % VBG Base Excess mmol/L Sodium (135-145) mmol/L Potassium (3.3-5.1) mmol/L Chloride (96-108) mmol/L Carbon Dioxide (22-29) mmol/L Anion Gap (12-20) BUN (9-16) mg/dL Creatinine (0.5-1.4) mg/dL Estim Creat Clear Calc Estimated GFR POC Glucose 328 H (60-115) mg/dL Random Glucose (60-115) mg/dL Calcium (8.4-10.2) mg/dL Total Bilirubin (0.0-1.0) mg/dL AST (5-37) U/L ALT (0-40) U/L Alkaline Phosphatase (39-117) U/L Total Protein (6.5-8.0) g/dL Albumin (3.5-5.0) g/dL Urine Color Yellow Urine Appearance Clear Urine pH 5.5 (5.0-9.0) Ur Specific [place] >= 1.030 H (1.005-1.025) Urine Protein Negative (Neg-Trace) mg/dL Urine Glucose (UA) >=1000 H (Negative) mg/dL Urine Ketones Negative (Negative) mg/dL Urine Blood Small (1+) H (Negative) Urine Nitrite Negative (Negative) Ur Leukocyte Esterase Small (1+) H (Negative) Urine RBC >20 H (0-2) /HPF Urine WBC 21-50 H (0-5) /HPF Ur Squamous Epith Cells 6-10 (0-2) /HPF Urine Bacteria Trace (None Seen) Hyaline Casts 0-2 (0-2) /LPF Urine Yeast Present Acetone, Qual (Negative) <Soila Parham NP - Last Filed: 03/28/22 02:08> Chronic Conditions Patient?s care impacted by: Diabetes <Soila Parham NP - Last Filed: 03/28/22 02:08> Discharge Plan Discharge Clinical Impression: Acute hyperglycemia, Jock itch <ROSANGELA Taylor - Last Filed: 03/27/22 15:53> Patient Disposition: Home, Self-Care <ROSANGELA Taylor - Last Filed: 03/27/22 15:53> Instructions: Jock Itch (ED), Diabetic Hyperglycemia (ED), Skin Yeast Infection (ED) <ROSANGELA Taylor - Last Filed: 03/27/22 15:53> Additional Instructions: You were evaluated for elevated blood sugar because you do not have your medications. 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 We gave you 1 L of fluid, and metformin. For your genital rash, please use Lotrimin ointment. Thank you for choosing this emergency department for evaluation. Please follow-up with primary care physician as needed. Return to the emergency department for any new, concerning, or worsening symptoms. <ROSANGELA Taylor - Last Filed: 03/27/22 15:53> Prescriptions: New miconazole nitrate [Lotrimin AF Jock Itch Powder] 2 % aerosol powder 1 spray topical BID Qty: 133 0RF No Action (DME) FreeStyle Lite Strips Strip MISCELLANEOUS BID sertraline 25 mg Tablet 75 mg PO DAILY 30 Days Qty: 90 1RF trazodone 100 mg Tablet 100 mg PO BEDTIME PRN (Reason: insomnia) 30 Days Qty: 30 1RF metformin 500 mg tablet 500 mg PO BID 30 Days Qty: 60 0RF albuterol sulfate 90 mcg/actuation HFA aerosol inhaler 2 puff inhalation Q4-6H PRN (Reason: shortness of breath or wheezing) 30 Days Qty: 8.5 0RF fluticasone propionate 50 mcg/actuation spray,suspension 1 spray intranasal BID 30 Days Qty: 16 0RF Rx Instructions: administer into each nostril (DME) blood-glucose meter [FreeStyle Lite Meter] Kit See Rx Instructions .Route Qty: 1 0RF Rx Instructions: As directed (DME) lancets [FreeStyle Lancets] 28 gauge misc See Rx Instructions .Route Qty: 100 0RF Rx Instructions: As directed (DME) FreeStyle Lite Strips Strip See Rx Instructions .Route Qty: 100 0RF Rx Instructions: As directed loratadine 10 mg tablet 1 tab PO QAM PRN (Reason: Allergic Symptoms) <ROSANGELA Taylor - Last Filed: 03/27/22 15:53> Interventions: ED Discharge Assessment Last Done: 03/27/22 22:07 <ROSANGELA Taylor - Last Filed: 03/27/22 15:53> Discharge Date/Time: 03/27/22 22:09 <ROSANGELA Taylor - Last Filed: 03/27/22 15:53>
[2022-03-27 17:12] LABS: MANUAL DIFF FLAG NO
[2022-03-27 17:17] LABS: Venous Blood Gas Refer to POC result
[2022-03-27 17:17] LABS: VBG Base Excess 0.7 mmol/L; VBG HCO3 26 mmol/L (22-26); VBG O2 % Saturation < 30.0 %; VBG pCO2 44 mmHg; VBG pH 7.37 (7.32-7.43); VBG pO2 24 mmHg
[2022-03-27 17:21] LABS: Basophils Percent Auto 0.4 % (0-2); Eosinophils Absolute Auto 0.2 X10*3/uL (0.0-0.4); Eosinophils Percent Auto 2.1 % (0-4); Hematocrit 48.9 % (42.0-52.0); Hemoglobin 16.4 g/dl (14.0-18.0); Imm Gran Abs Auto 0.08 X10*3/uL (0.00-0.03); Imm Gran Pct Auto 0.8 % (0.0-0.4); Lymphocytes Percent Auto 30.8 % (20-40); Mean Corpuscular HGB Conc 33.5 g/dl (31.0-36.0); Mean Corpuscular Hemoglobin 27.2 pg (27.0-33.0); Mean Platelet Volume 8.9 fL (9.4-12.4); Monocytes Absolute Auto 0.8 X10*3/uL (0.1-1.2); Monocytes Percent Auto 7.7 % (2-11); Neutrophils Absolute Auto 5.6 x10*3/uL (2.0-8.3); Neutrophils Percent Auto 58.2 % (45-73); Platelet Count 349 X10*3/uL (160-400); Red Blood Count 6.04 X10*6/uL (4.60-5.80); Red Cell Distribution Width 11.9 % (11.0-16.0); White Blood Count 9.7 X10*3/uL (4.8-10.8)
[2022-03-27 17:52] LABS: Alanine Aminotransferase 43 U/L (0-40); Albumin Level 4.4 g/dL (3.5-5.0); Alkaline Phosphatase 94 U/L (39-117); Anion Gap 12 (12-20); Aspartate Amino Transferase 20 U/L (5-37); Bilirubin Total 0.3 mg/dL (0.0-1.0); Blood Urea Nitrogen 11 mg/dL (9-16); Calcium 9.2 mg/dL (8.4-10.2); Carbon Dioxide 28 mmol/L (22-29); Chloride 97 mmol/L (96-108); Creatinine Clr Calc Pharmacy 97.8; Estimated Glomerular Filt Rate > 60; Glucose Random 396 mg/dL (60-115); Potassium 4.1 mmol/L (3.3-5.1); Sodium 133 mmol/L (135-145); Total Protein 7.8 g/dL (6.5-8.0)
[2022-03-27 18:01] LABS: Acetone, serum QL Negative (Negative)
[2022-03-27] MEDS: 0.9 % Sodium Chloride 1,000 ML 999 ML IVCONT (20:08)
--- NOTE | 2022-03-27 20:11 | PC.NURSE ---
pt a&o, no sob or chest pain. 20g Iv placed in left forearm, medicated per May. Notified LINDSEY Milligan.
[2022-03-27 21:06] LABS: Appearance Urine Clear; Color Urine Yellow; Glucose Urine UA >=1000 mg/dL (Negative); Leukocyte Esterase Urine Small (1+) (Negative); Nitrite Urine Negative (Negative); PH 5.5 (5.0-9.0); Specific Gravity - Urine >= 1.030 (1.005-1.025); UMIC TRIGGER UACC YES; Urine Blood Small (1+) (Negative); Urine Ketones Negative (Negative); Urine Protein Negative (Neg-Trace)
[2022-03-27 21:14] LABS: Bacteria Urine Trace (None Seen); Hyaline Casts Urine 0-2 /LPF (0-2); RBC Urine >20 /HPF (0-2); UACC Culture Trigger YES; WBC Urine 21-50 /HPF (0-5)
[2022-03-27 21:17] LABS: Glucose, Whole Blood 328 mg/dL (60-115)
[2022-03-27 21:24] VITALS: BP 131/76; PULSE 86; TEMP 36.5; O2SAT 98
[2022-03-27] MEDS: metFORMIN HCl 1,000 MG TABLET 1000 MG PO (21:53)
[2022-03-27 21:54] VITALS: BP 146/81; PULSE 76; RESP 17; O2SAT 98
--- NOTE | 2022-03-27 21:54 | PC.NURSE ---
Removed Iv, Reviewed discharge instructions with pt. pt verbalized understanding. Medicated per May.
--- NOTE | 2022-03-27 22:05 | PC.NURSE ---
Patient is alert and oriented, denies to be in pain. No itching noted. Eating and drinking okay. IV fluids completed. Patient is ready to be discharged per doctors order. Vitals and labs reviewed. No signs and symptoms of repository distress
== END 2022-03-27 22:09 | disposition home or self-care (01) ==
PROVIDERS: Physician Assistant; Emergency Provider Internal Medicine; PCP Internal Medicine
DX: B35.6 Tinea cruris (principal); R79.89 Other specified abnormal findings of blood chemistry; E11.65 Type 2 diabetes mellitus with hyperglycemia; Z79.84 Long term (current) use of oral hypoglycemic drugs; Z79.899 Other long term (current) drug therapy
CPT/HCPCS: 36415; 80053; 81001; 82009; 82803; 82947; 85025; 87086; 87088; 96360; 96361; 99284

== ENCOUNTER 2022-08-22 03:34 | Emergency (ER) | payer MEDICAID, SELFPAY ==
[2022-08-22 03:46] VITALS: BP 118/83; PULSE 94; RESP 18; TEMP 36.4; O2SAT 98; BMI 24.9
[2022-08-22 05:50] VITALS: BP 106/67; PULSE 60; RESP 16; TEMP 36.7; O2SAT 95
--- NOTE | 2022-08-22 07:16 | ED.GENADULT ---
HPI - General Adult General Chief complaint: Wound/Laceration Stated complaint: Fall/laceration Time Seen by Provider: 08/22/22 06:31 Source: patient Mode of arrival: ambulatory Limitations: no limitations History of Present Illness HPI narrative: Patient is a 29-year-old male with history of MDD presenting to the emergency department with laceration to left eyebrow after falling out of his bed last night. Patient states that he took 100 mg of trazodone which is prescribed to him but he is not take every night he only uses occasionally. He states that he fell out of his bed and onto his wet floor. He denies any loss of consciousness. He reports that he had a headache initially but denies a headache at this time. He denies any double vision or vision changes. He denies any neck or back pain. He denies any other injuries. He denies any dizziness. He denies any abdominal pain, nausea, vomiting. He does not know date of his last tetanus vaccination. MD complaint: head injury Onset (ago): hour(s) Location: head and face Radiation: non-radiation Severity: mild Quality: dull Pain Consistency: constant Relieving factors: none Treatments prior to arrival: none Related Data Home Medications Medication Instructions Recorded Confirmed loratadine 10 mg tablet 1 tab PO QAM PRN Allergic Symptoms 06/07/21 06/07/21 blood sugar diagnostic (FreeStyle 07/01/21 07/01/21 Lite Strips) Previous Rx's Medication Instructions Recorded blood sugar diagnostic (FreeStyle #100 ea 02/28/21 Lite Strips) blood-glucose meter (FreeStyle #1 ea 02/28/21 Lite Meter kit) lancets 28 gauge (FreeStyle #100 ea 02/28/21 Lancets) albuterol sulfate 90 mcg/actuation 2 puff inhalation Q4-6H PRN 07/06/21 aerosol inhaler shortness of breath or wheezing 30 days #8.5 grams fluticasone propionate 50 1 spray intranasal BID 30 days #16 07/06/21 mcg/actuation nasal grams spray,suspension metformin 500 mg tablet 500 mg PO BID 30 days #60 tabs 07/06/21 sertraline 25 mg tablet 75 mg PO DAILY 30 days #90 tabs 07/06/21 trazodone 100 mg tablet 100 mg PO BEDTIME PRN insomnia 30 07/06/21 days #30 tabs miconazole nitrate 2 % topical 1 spray topical BID #133 grams 03/27/22 spray powder (Lotrimin AF Jock Itch Powder) Allergies Allergy/AdvReac Type Severity Reaction Status Date / Time SHELLFISH Allergy Unknown ITCHY Uncoded 03/27/22 15:55 THROAT Review of Systems Constitutional: Constitutional: Reports no additional constitutional complaints Eyes: Eyes: Reports no additional eye complaints ENT: Reports system reviewed and no additional complaints, except as documented Cardiovascular: Cardiovascular: Reports no additional cardiovascular complaints Respiratory: Respiratory: Reports no additional respiratory complaints Gastrointestinal: Gastrointestinal: Reports no additional gastrointestinal complaints Genitourinary: Genitourinary: Reports no additional male genitourinary complaints Musculoskeletal: Musculoskeletal: Reports no additional musculoskeletal complaints Integumentary/Breasts: Skin/Breast: Reports system reviewed and no additional complaints, except as docu Neurologic: Reports system reviewed and no additional complaints, except as documented Psychiatric: Psychiatric: Reports no additional psychiatric complaints Endocrine: Endocrine: Reports no additional endocrine complaints Hematologic/Lymphatic: Hematologic/Lymphatic: Reports no additional hematologic/lymphatic complaints Allergic/Immunologic: Allergic/Immunologic: Reports no additional allergic/immunologic complaints [facility] Past Medical History Medical History Asthma Depression Diabetes MDD (major depressive disorder), recurrent severe, without psychosis Social History Social History Household Members: None Housing: Homeless Do you presently have visiting nurse or other home services: No Patient Tobacco Use Status: Current someday Tobacco user Tobacco use type: Cigarette Cigarettes Per Day: 2 Years Smoked: 15 e-Cigarette/Vaping Use: Currently Using Second Hand Smoke Exposure: Yes Substance Use Type: Crack/Cocaine and Marijuana Advance Directives: No Advance Directives Information Provided: Yes service: No Sexual orientation: Cisgender Physical Exam ED Vital Signs: Vital Signs - 24 hr 08/22/22 03:46 08/22/22 05:50 Temperature 97.6 F 98.0 F Pulse Rate 94 60 Respiratory Rate 18 16 Blood Pressure 118/83 106/67 Pulse Oximetry 98 95 Oxygen Delivery Method Room Air Room Air BMI result Body Mass Index 24.9 Vital signs have been reviewed and appear to be correct. Blood pressure normal. Heart rate normal. Respiratory rate normal. Temperature normal. Oxygen saturation normal. Const General: cooperative, healthy appearing, no acute distress, alert and awake Orientation/consciousness: patient oriented x3 HENMT Head: Yes normal to inspection, Yes normocephalic and Yes laceration Head images: 1. 5mm laceration Ears: hearing grossly normal bilaterally, external ears normal and TM's normal bilaterally General nose exam: Normal external nose present, Normal nares present, Normal nasal mucous membranes and turbinates present and Normal septum present Face and sinus: Yes face symmetric Mouth: Normal oral and palatal mucosa present, tongue normal and oropharynx normal Throat: Yes posterior oropharynx normal and Yes uvula midline Eyes Pupils: Equal, round and reactive pupils present EOM: EOMs intact bilaterally Neck Neck: Yes normal visual inspection, Yes full ROM and Yes supple Chest Chest palpation & inspection: normal inspection of the chest Resp Effort & Inspection: normal respiratory effort Auscultation: clear to auscultation bilaterally Cardio Rate: regular rate Rhythm: regular rhythm Heart sounds: S1 normal heart sound present and S2 normal heart sound present GI Inspection: Yes normal to inspection Palpation (GI): Soft to palpation and nontender Back/Spine/Pelvis Cervical Spine: No Cervical spine tenderness and No step off deformity Thoracic/Lumbar Spine: No thoracic spinal tenderness and No lumbar spinal tenderness Skin Trauma: laceration left lateral other Neuro General: patient oriented x3 Cranial nerves: Yes CN's II-XII intact bilaterally and Yes Equal, round and reactive pupils present Cognition (Neuro): normal cognition Extrem General: Yes normal to inspection, Yes full ROM and Yes capillary refill normal Procedures Laceration Laceration 1: Site: face Side (If applicable): left Size (cm): 0.5 Description: linear Depth: simple, single layer Local Anesthetic: lidocaine 1% Amount of anesthesia used (mL): 0.5 Skin layer closed with: other (prolene) Size (cm): 6-0 Number of sutures: 2 Technique: simple, interrupted Medical Decision Making Medical Decision Making MDM Narrative: Patient is a 29-year-old male with history of MDD presenting to the emergency department with laceration to left eyebrow after falling out of his bed last night. On exam patient is awake, A+Ox3, normal neurological exam without focal deficits, 5mm laceration to left lateral eyebrow without active bleeding. No imaging indicated per [place] CT Head guidelines. Laceration repaired as per procedure note. Patient instructed to have sutures removed in 5 days and follow up with PCP. Return precautions discussed at bedside. Plan: repair laceration, update Tdap, discharge up with PCP follow up Differential Diagnosis Differential Diagnoses: The differential diagnosis associated with the presentation includes laceration, contusion, abrasion External Record Review External record reviewed: Inpatient record, Office record and Outpatient record Prescription Management I considered prescription management with: Other (Tdap) Discharge Plan Discharge Clinical Impression: Laceration of face Qualifiers: Encounter type: initial encounter Qualified Code(s): S01.81XA - Laceration without foreign body of other part of head, initial encounter Patient Disposition: Home, Self-Care Instructions: Laceration (DC), Stitches Removal (ED) Additional Instructions: You have been evaluated in the emergency department today for a laceration to your face. Your laceration was repaired in the emergency department with sutures. Please keep the area surrounding the laceration clean and dry and keep dressing in place for the next 24 hours. After that please change the dressing and assess the wound daily. Keep the area out of direct sunlight for the next 6 months to help prevent scarring. You should have the sutures removed in 5 days. If you develop fever, redness, swelling at the site of your laceration, or thick yellow drainage please come back to the ER for a wound check. Prescriptions: No Action (DME) FreeStyle Lite Strips Strip MISCELLANEOUS BID sertraline 25 mg Tablet 75 mg PO DAILY 30 Days Qty: 90 1RF trazodone 100 mg Tablet 100 mg PO BEDTIME PRN (Reason: insomnia) 30 Days Qty: 30 1RF metformin 500 mg tablet 500 mg PO BID 30 Days Qty: 60 0RF albuterol sulfate 90 mcg/actuation HFA aerosol inhaler 2 puff inhalation Q4-6H PRN (Reason: shortness of breath or wheezing) 30 Days Qty: 8.5 0RF fluticasone propionate 50 mcg/actuation spray,suspension 1 spray intranasal BID 30 Days Qty: 16 0RF Rx Instructions: administer into each nostril miconazole nitrate [Lotrimin AF Jock Itch Powder] 2 % aerosol powder 1 spray topical BID Qty: 133 0RF (DME) blood-glucose meter [FreeStyle Lite Meter] Kit See Rx Instructions .Route Qty: 1 0RF Rx Instructions: As directed (DME) lancets [FreeStyle Lancets] 28 gauge misc See Rx Instructions .Route Qty: 100 0RF Rx Instructions: As directed (DME) FreeStyle Lite Strips Strip See Rx Instructions .Route Qty: 100 0RF Rx Instructions: As directed loratadine 10 mg tablet 1 tab PO QAM PRN (Reason: Allergic Symptoms)
[2022-08-22 07:56] VITALS: BP 110/72; PULSE 73; RESP 16; TEMP 36.6; O2SAT 99
[2022-08-22] MEDS: Diphth,Pertus(ACell),Tet Adult 0.5 ML SYRINGE IM (08:01)
[2022-08-22] MEDS: Lidocaine HCl 1 % MPF 30 ML VIAL SUBCUT (08:02)
== END 2022-08-22 08:21 | disposition home or self-care (01) ==
PROVIDERS: Emergency Provider Emergency Medicine Emergency Medical Services; PCP Internal Medicine
DX: S01.112A Laceration without foreign body of left eyelid and periocular area, initial encounter (principal); W06.XXXA Fall from bed, initial encounter; F17.210 Nicotine dependence, cigarettes, uncomplicated; Y93.84 Activity, sleeping; Y92.032 Bedroom in apartment as the place of occurrence of the external cause; Y99.9 Unspecified external cause status
CPT/HCPCS: 12011; 90471; 90715; 99284

== ENCOUNTER 2023-02-28 11:15 | Emergency (ER) | payer SELFPAY ==
[2023-02-28 11:34] VITALS: BP 101/68; PULSE 74; RESP 18; TEMP 36.4; O2SAT 98; BMI 25.4
[2023-02-28 11:53] LABS: Glucose, Whole Blood 298 mg/dL (60-115)
[2023-02-28 11:56] LABS: MANUAL DIFF FLAG NO
[2023-02-28 11:58] LABS: Basophils Percent Auto 0.3 % (0-2); Eosinophils Absolute Auto 0.2 X10*3/uL (0.0-0.4); Hematocrit 46.9 % (42.0-52.0); Hemoglobin 15.3 g/dl (14.0-18.0); Imm Gran Abs Auto 0.05 X10*3/uL (0.00-0.03); Imm Gran Pct Auto 0.5 % (0.0-0.4); Lymphocytes Absolute Auto 3.7 X10*3/uL (1.2-4.9); Lymphocytes Percent Auto 39.9 % (20-40); Mean Corpuscular HGB Conc 32.6 g/dl (31.0-36.0); Mean Corpuscular Hemoglobin 27.2 pg (27.0-33.0); Mean Corpuscular Volume 83.5 fL (80.0-98.0); Mean Platelet Volume 8.8 fL (9.4-12.4); Monocytes Absolute Auto 0.8 X10*3/uL (0.1-1.2); Monocytes Percent Auto 8.3 % (2-11); Neutrophils Absolute Auto 4.5 x10*3/uL (2.0-8.3); Platelet Count 323 X10*3/uL (160-400); Red Blood Count 5.62 X10*6/uL (4.60-5.80); White Blood Count 9.3 X10*3/uL (4.8-10.8)
[2023-02-28 12:15] LABS: COVID-19 Test Negative (Negative); IDNOW Serial# 08D9AD1C; IDNOW Serial# BCCEAD1C; Influenza A Negative (Negative); Influenza B2 Negative (Negative)
[2023-02-28 12:23] LABS: Anion Gap 9 (12-20); Blood Urea Nitrogen 9 mg/dL (9-16); Calcium 8.7 mg/dL (8.4-10.2); Carbon Dioxide 27 mmol/L (22-29); Chloride 105 mmol/L (96-108); Creatinine Clr Calc Pharmacy 90.3; Estimated Glomerular Filt Rate > 60; Glucose Random 343 mg/dL (60-115); Potassium 4.4 mmol/L (3.3-5.1); Sodium 137 mmol/L (135-145)
--- NOTE | 2023-02-28 14:06 | ED.NAVMDI ---
HPI - Nausea/Vomiting/Diarrhea General Chief complaint: Nausea/Vomiting/Diarrhea Stated complaint: diarrhea Time Seen by Provider: 02/28/23 13:59 Source: patient Mode of arrival: ambulatory Limitations: no limitations History of Present Illness HPI Narrative: 37 yo male with hx of depression, diabetes, asthma here with c/o not feeling well and loose non bloody stools for 3 days. He had some nausea as well. He notes he is not sleeping well due to lack of trazodone and ran out of his metformin in the past week. He feels fine now and wants to eat. He is walking around asking for food. MD elicited complaint: diarrhea Pertinent past history: other (diarrhea) Onset (ago): day(s) (3) Description of vomiting: watery Associated nausea: Yes Associated abdominal pain: Yes Location of pain: diffuse Radiation: diffuse Pain consistency: constant Exacerbating factors: eating Relieving factors: none Context: other (ran out of medications) Associated symptoms: other (insomnia) Related Data Home Medications Medication Instructions Recorded Confirmed loratadine 10 mg tablet 1 tab PO QAM PRN Allergic Symptoms 06/07/21 06/07/21 blood sugar diagnostic (FreeStyle 07/01/21 07/01/21 Lite Strips) Previous Rx's Medication Instructions Recorded blood sugar diagnostic (FreeStyle #100 ea 02/28/21 Lite Strips) blood-glucose meter (FreeStyle #1 ea 02/28/21 Lite Meter kit) lancets 28 gauge (FreeStyle #100 ea 02/28/21 Lancets) albuterol sulfate 90 mcg/actuation 2 puff inhalation Q4-6H PRN 07/06/21 aerosol inhaler shortness of breath or wheezing 30 days #8.5 grams fluticasone propionate 50 1 spray intranasal BID 30 days #16 07/06/21 mcg/actuation nasal grams spray,suspension metformin 500 mg tablet 500 mg PO BID 30 days #60 tabs 07/06/21 sertraline 25 mg tablet 75 mg (3 x 25 mg) PO DAILY 30 days 07/06/21 #90 tabs trazodone 100 mg tablet 100 mg PO BEDTIME PRN insomnia 30 07/06/21 days #30 tabs miconazole nitrate 2 % topical 1 spray topical BID #133 grams 03/27/22 spray powder (Lotrimin AF Jock Itch Powder) metformin 500 mg tablet 500 mg PO BID #60 tabs 02/28/23 trazodone 50 mg tablet 50 mg PO BEDTIME PRN insomnia #20 02/28/23 tabs Allergies Allergy/AdvReac Type Severity Reaction Status Date / Time SHELLFISH Allergy Unknown ITCHY Uncoded 03/27/22 15:55 THROAT Review of Systems Review of Systems: Constitutional : No Weight loss, No Fever, No Chills ENT/Mouth : No sore throat, No Rhinorrhea Eyes: No Swelling, No Redness Cardiovascular : No Chest Pain, No SOB, NoEdema Respiratory : No Cough, No Sputum, No Wheezing Gastrointestinal : Positive Nausea, no Vomiting, positive Diarrhea, positive abdominal Pain, No Hematochezia, No Melena Genitourinary : No Dysuria, No Urinary Frequency, No Hematuria, No Urgency Musculoskeletal : No joint pain, No Myalgias, No Joint Swelling Skin : No Skin Lesions, No rash Neuro : No Weakness, No Numbness, No Dizziness, No Headache Psych : No Anxiety/Panic, No Depression Heme/Lymph: No Bruising, No Lymphadenopathy Endocrine : No Polyuria, No Polydipsia All other systems reviewed and are negative. Gastrointestinal: Gastrointestinal: Reports nausea PMFSH Past Medical History Attestation statement: The following information was validated with the patient. Source: old records reviewed Medical History MDD (major depressive disorder), recurrent severe, without psychosis Depression Diabetes Asthma Social History Social History Household Members: None Housing: Homeless Do you presently have visiting nurse or other home services: No Alcohol intake: current Alcohol intake frequency: a few times a week Patient Tobacco Use Status: Current someday Tobacco user Tobacco use type: Cigarette Cigarettes Per Day: 2 Years Smoked: 15 e-Cigarette/Vaping Use: Currently Using Second Hand Smoke Exposure: Yes Substance Use Type: Crack/Cocaine and Marijuana service: No Sexual orientation: Cisgender Physical Exam Vital Signs: Vital Signs: Last Vital Signs Temp 97.5 F 02/28/23 11:34 Pulse 74 02/28/23 11:34 Resp 18 02/28/23 11:34 BP 101/68 02/28/23 11:34 Pulse Ox 98 02/28/23 11:34 O2 Del Method Room Air 02/28/23 11:34 BMI result Body Mass Index 25.4 Appearance: Alert. Oriented X3. No acute distress. eating a sandwhich and drinking juan c lani Eyes: Pupils equal, round and reactive to light. ENT: Pharynx normal. Neck: Normal inspection. Neck supple. CVS: Normal heart rate and rhythm. Pulses normal. Respiratory: No respiratory distress. Breath sounds normal. Abdomen: Soft and nontender. Skin: Skin warm and dry. Normal skin color. Normal skin turgor. Extremities: No lower extremity edema. No calf ttp Neuro: Oriented X 3. No motor deficit. No sensory deficit. Medical Decision Making Medical Decision Making [facility] [place] Narrative: 37 yo male with hx of depression, diabetes, asthma here with c/o resolved nausea, abdominal pain and diarrhea - feels fine now has benign abdominal exam and is now eating food in the room and wants to leave. I doubt he has acute abdomen or focal infection in abdomen will DC home with precautions. He also c/o insomnia and was on trazodone 100mg but his psychiatrist is not calling him back at this time will start on PRN trazodone 50mg and he can follow up PRN with his docor. He is not toxic and is stable for DC. Differential Diagnosis Differential Diagnoses: The differential diagnosis associated with the presentation includes hyperglycemia, viral syndrome, medication issue Admission/Observation Consideration of admission/observation: Escalation of care including admission/observation considered labs normal no pain and eating food wants to go home stable for DC Lab Data [facility] [place] Lab Attestation statement: I reviewed the patient's lab results. 02/28/23 11:49 02/28/23 11:49 Labs: Lab Results 02/28/23 02/28/23 Range/Units 11:46 11:49 WBC 9.3 (4.8-10.8) X10*3/uL RBC 5.62 (4.60-5.80) X10*6/uL Hgb 15.3 (14.0-18.0) g/dl Hct 46.9 (42.0-52.0) % MCV 83.5 (80.0-98.0) fL MCH 27.2 (27.0-33.0) pg MCHC 32.6 (31.0-36.0) g/dl RDW 12.0 (11.0-16.0) % Plt Count 323 (160-400) X10*3/uL MPV 8.8 L (9.4-12.4) fL Immature Gran % (Auto) 0.5 H (0.0-0.4) % Neut % (Auto) 49.0 (45-73) % Lymph % (Auto) 39.9 (20-40) % Gila % (Auto) 8.3 (2-11) % Eos % (Auto) 2.0 (0-4) % Baso % (Auto) 0.3 (0-2) % Lymph # (Auto) 3.7 (1.2-4.9) X10*3/uL Gila # (Auto) 0.8 (0.1-1.2) X10*3/uL Eos # (Auto) 0.2 (0.0-0.4) X10*3/uL Baso # (Auto) 0.0 (0.0-0.2) X10*3/uL Abs Immat Gran (auto) 0.05 H (0.00-0.03) X10*3/uL Absolute Neuts (auto) 4.5 (2.0-8.3) x10*3/uL Absolute Nucleated RBC 0.000 (0.0-0.012) X10*3/uL Nucleated RBC % (auto) 0.0 (0.0-0.2) /100WBC Sodium 137 (135-145) mmol/L Potassium 4.4 (3.3-5.1) mmol/L Chloride 105 (96-108) mmol/L Carbon Dioxide 27 (22-29) mmol/L Anion Gap 9 L (12-20) BUN 9 (9-16) mg/dL Creatinine 0.82 (0.5-1.4) mg/dL Estim Creat Clear Calc 90.3 Estimated GFR > 60 POC Glucose 298 H (60-115) mg/dL Random Glucose 343 H (60-115) mg/dL Calcium 8.7 (8.4-10.2) mg/dL COVID-19 (ESE) Negative (Negative) COVID-19 Clin Com See Note Influenza Type A (ADAM) Negative (Negative) Influenza Type B (ADAM) Negative (Negative) Influenza A & B Note See Note External Record Review External record reviewed: Inpatient record Tests considered The following testing was considered but not selected: CT scan but labs reassuring eating food has no pain and wants to go home Prescription Management I considered prescription management with: Other Chronic Conditions Patient?s care impacted by: Diabetes Social Determinants Patient?s care significantly limited by Social Determinants of Health including: Problems related to primary support group Discharge Plan Discharge Clinical Impression: Acute hyperglycemia Diarrhea Qualifiers: Diarrhea type: unspecified type Qualified Code(s): R19.7 - Diarrhea, unspecified Insomnia Qualifiers: Insomnia type: unspecified Qualified Code(s): G47.00 - Insomnia, unspecified Patient Disposition: Home, Self-Care Instructions: Acute Diarrhea (ED), Insomnia (ED), Diabetic Hyperglycemia (ED) Additional Instructions: monitor your sugars. follow up with your doctor. return for fevers, pain, black or bloody stools or any other concerns. you need to talk to your doctor about increasing your trazodone when appropriate. Prescriptions: New metformin 500 mg tablet 500 mg PO BID Qty: 60 0RF trazodone 50 mg tablet 50 mg PO BEDTIME PRN (Reason: insomnia) Qty: 20 0RF No Action (DME) FreeStyle Lite Strips Strip MISCELLANEOUS BID sertraline 25 mg Tablet 75 mg PO DAILY 30 Days Qty: 90 1RF trazodone 100 mg Tablet 100 mg PO BEDTIME PRN (Reason: insomnia) 30 Days Qty: 30 1RF metformin 500 mg tablet 500 mg PO BID 30 Days Qty: 60 0RF albuterol sulfate 90 mcg/actuation HFA aerosol inhaler 2 puff inhalation Q4-6H PRN (Reason: shortness of breath or wheezing) 30 Days Qty: 8.5 0RF fluticasone propionate 50 mcg/actuation spray,suspension 1 spray intranasal BID 30 Days Qty: 16 0RF Rx Instructions: administer into each nostril miconazole nitrate [Lotrimin AF Jock Itch Powder] 2 % aerosol powder 1 spray topical BID Qty: 133 0RF (DME) blood-glucose meter [FreeStyle Lite Meter] Kit See Rx Instructions .Route Qty: 1 0RF Rx Instructions: As directed (DME) lancets [FreeStyle Lancets] 28 gauge misc See Rx Instructions .Route Qty: 100 0RF Rx Instructions: As directed (DME) FreeStyle Lite Strips Strip See Rx Instructions .Route Qty: 100 0RF Rx Instructions: As directed loratadine 10 mg tablet 1 tab PO QAM PRN (Reason: Allergic Symptoms)
[2023-02-28 14:30] VITALS: BP 119/72; PULSE 73; RESP 16; TEMP 36.8; O2SAT 98
== END 2023-02-28 14:39 | disposition home or self-care (01) ==
PROVIDERS: Emergency Provider Emergency Medicine; PCP Internal Medicine
DX: E11.65 Type 2 diabetes mellitus with hyperglycemia (principal); G47.00 Insomnia, unspecified; R11.2 Nausea with vomiting, unspecified; R19.7 Diarrhea, unspecified; F17.210 Nicotine dependence, cigarettes, uncomplicated; Z71.6 Tobacco abuse counseling; Z79.899 Other long term (current) drug therapy; Z79.4 Long term (current) use of insulin; Z11.52 Encounter for screening for COVID-19; Z20.822 Contact with and (suspected) exposure to COVID-19; Z79.84 Long term (current) use of oral hypoglycemic drugs
CPT/HCPCS: 36415; 80048; 82947; 85025; 87502; 87635; 99283; 99284

== ENCOUNTER 2024-09-10 10:51 | Outpatient (REF) | payer SELFPAY ==
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
--- NOTE | ~2024-09-10 | XR_ITS ---
EXAMINATION: XR THORACIC SPINE CLINICAL INFORMATION: PAIN COMPARISON: None available. TECHNIQUE: AP and lateral views of the thoracic spine were obtained. FINDINGS: There is 12 degrees levoscoliosis of the thoracic spine. There are large anterior osteophytes in the lower thoracic spine. Subtle wedging of T11 and T12 superior endplates is likely congenital/developmental. XR/XR thoracic spine 2V IMPRESSION: Subtle wedging of T11 and T12 superior endplates is likely congenital/developmental. Correlate clinically Electronically signed by: Robe Butts MD 09/10/2024 01:48 PM EDT
== END 2024-09-10 10:52 | disposition home or self-care (01) ==
LOC: HO.HHCX 10:51
PROVIDERS: Visit Provider Family Medicine
DX: M25.522 Pain in left elbow (principal); M25.552 Pain in left hip; M54.50 Low back pain, unspecified; M54.6 Pain in thoracic spine
CPT/HCPCS: 72070; 72100; 73080; 73502

== ENCOUNTER → 2024-09-10 10:51 | Outpatient (BNV) | payer MEDICAID, SELFPAY | PROVIDERS: Visit Provider Radiology Diagnostic Radiology | DX: M54.9 Dorsalgia, unspecified (principal); M25.552 Pain in left hip; Y04.8XXA Assault by other bodily force, initial encounter; M54.6 Pain in thoracic spine; M25.522 Pain in left elbow; R22.32 Localized swelling, mass and lump, left upper limb | CPT/HCPCS: 72070; 72100; 73080; 73502 ==

== ENCOUNTER 2025-01-06 05:40 | Emergency (ER) | payer SELFPAY ==
[2025-01-06 05:42] VITALS: BP 136/91; PULSE 88; RESP 16; TEMP 36.6; O2SAT 98; BMI 24.0
--- OUTSIDE RECORDS SUMMARY | 2025-01-06 06:19 | XMS_ITS | Clinical Summary ---
Author Organization [employer] Address [address] [facility] [address] [place] [address] Care Team Providers Care [employer] Principal Name Role Phone Bozena Lorenz MD Primary Care Provide r Allergies Active Allergy Reactions Criticality Noted Date Comments Shellfish-Derived Products Hives,Itching,Swellin g Medium 09/08/2020 Swelling of the eyes Medications * This document contains information received from the source organization and may not represent a complete record from that organization. TRUEplus Lancets 33G miscIndications :Hyperglycemia TEST BLOOD SUGAR TWICE DAILY 100 each 2 3 Active FREESTYLE LITE test stripIndication s:Hyperglycemia TEST BLOOD SUGAR TWICE DAILY 100 each 2 3 Active Alcohol Swabs (SM Alcohol Prep) 70 % pads USE TWICE DAILY 2 Active albuterol 108 (90 Base) MCG/ACT inhalerIndicati ons:Shortness of breath Inhale 2 puffs by mouth every 4-6 hours as needed 18 g 3 Active traZODone (Desyrel) 100 MG tabletIndicatio ns:Recurrent major depressive disorder, in partial remission (CMS/HCC) TAKE 1 TABLET BY MOUTH EVERY DAY AT BEDTIME NEEDED FOR SLEEP 30 tablet 1 4 Active metFORMIN (Glucophage) 500 MG tabletIndicatio ns:Type 2 diabetes mellitus with hyperglycemia, without long-term current use of insulin ([facility]) Take 1 tablet (500 mg) by mouth with breakfast and with evening meal. 180 tablet 1 4 Active Lancets miscIndications :Type 2 diabetes mellitus with hyperglycemia, without long-term current use of insulin ([facility]) Use to test blood sugar 2 times daily 100 each 10/04/202 4 Active Alcohol Swabs 70 % padsIndications :Type 2 diabetes mellitus with hyperglycemia, without long-term current use of insulin (HCC) Use to test blood sugar 2 times daily 100 each 2 4 Active Blood Glucose Monitoring Suppl (FreeStyle [place] Lite) w/Device kitIndications: Type 2 diabetes mellitus with hyperglycemia, without long-term current use of insulin (HCC) Use to test blood sugar 2 times daily 1 kit 4 Active naproxen (Naprosyn) 500 MG tablet Take 1 tablet (500 mg) by mouth if needed in the morning and at bedtime for mild pain. 30 tablet 1 5 09/11/19 26 Active Diclofenac Sodium 1 % gel Apply 2 g topically if needed in the morning, at noon, in the evening, and at bedtime (pain). 150 g 1 5 Active baclofen (Lioresal) 10 MG tablet Take 1 tablet (10 mg) by mouth if needed in the morning, at noon, and at bedtime for muscle spasms. 30 tablet 1 5 Active FREESTYLE LITE test stripIndication s:Type 2 diabetes mellitus with hyperglycemia, without long-term current use of insulin (HCC) Use to test blood sugar 2 times daily 100 each 12 4 01/03/20 25 Active Problems Problem Noted Date Diagnosed Date Type 2 diabetes mellitus wit h hyperglycemia, without long-term current use of insulin 01/03/2024 Assessment & Plan (01/07/2024 4:49 PM EDT): Diabetes is: not controlled - Lab Results Component Value Date HGBA1C 8.6 (A) 01/03/2024 - Lab Results Component Value Date CREATININE 0.82 02/28/2023 -Changes: I re-initiated his metformin I advise to log his glucose - Diabetic eye exam:pending - Diabetic foot exam:pending - Continue lifestyle modifications - Follow up: 3 months Anxiety with depression 01/03/2024 Assessment & Plan (01/07/2024 4:50 PM EDT): Patient reports he feels stable but reports he will like to be seen by follow by a therapist Major depressive disorder 04/09/2022 Mild intermittent asthma 04/09/2022 Newly diagnosed diabetes 04/09/2022 Encounters Date Type Department Care Team Description 12/29/[address] [phone] Bozena Lorenz MD Chart Prep 12/29/[address] [phone] Bozena Lorenz MD Insurance 10/28/2024 Telephone [facility] [address] [place], [place] [phone] Bozena Lorenz MD Referral from Last 3 Months Immunizations Immunization Administration Dates Next Due Influenza injectable quadrivalent preservative f ree 06/30/2021 Moderna Covid-19 Vaccine 6+ Bivalent 05/31/2022 Tdap 04/11/2021 Social History Tobacco Use Types Packs/Day Years Used Date Smoking Tobacco: Some Days Cigarettes Passive Smoke Exposure: Current Smokeless Tobacco: Never Tobacco Cessation:Ready to Q uit: Not Asked; Counseling Given: Not Answered Alcohol Use Standard Drinks/Week Comments Not Currently 0 (1 standard drink = 0.6 oz pur e alcohol) Depression Answer Date Recorded Patient Health Questionnaire-9 Score 0 01/03/2024 Patient Health Questionnaire-9 Score 0 01/03/2024 Last PHQ-9: Questionnaire Data Not on file 1 Housing Stability Answer Date Recorded What is your housing situation today? I have lolita dominique 01/03/[address] you li ve. Do you have problems with any of the following? None of the above 01/03/2024 Food Insecurity Answer Date Recorded Within the past 12 months, y ou worried that your food would run out before you got money to buy more: Never True 01/03/2024 Within the past 12 months,th e food you bought just didn't last and you didn't have enough money to get more: Never True 07/2023 Transportation Answer Date Recorded In the past 12 months, has l ack of transportation kept you from medical appts, meetings, work or from getting things needed for daily living? No 01/03/2024 Utilities Answer Date Recorded In the past 12 months, has t he electric, gas, oil or water company threatened to shut off services in your home? No 01/03/2024 Depression Answer Date Recorded Patient Health Questionnaire-2 Score 0 01/03/2024 Internet Access Answer Date Recorded Internet Access Q1 No 01/03/2024 Internet Access Q2 I do not want or need it 07/2023 Sex and Gender Information Value Date Recorded Sex Assigned at Male 01/29/2022 10:15 AM EDT Legal Sex Male 10:15 AM EDT Gender Identity Male 01/29/2022 10:15 AM EDT Sexual Orientation Choose not to disclose 2021 10:15 AM EDT Last Filed Vital Signs Vital Sign Reading Time Taken Comments Blood Pressure 134/78 09/10/2024 9:53 AM EDT Pulse 72 09/10/2024 9:53 AM EDT Temperature 36.7 C (98.1 F) 09/10/2024 9:53 AM EDT Respiratory Rate 18 09/10/2024 9:53 AM EDT Oxygen Saturation 99% 09/10/2024 9:53 AM EDT Inhaled Oxygen Concentration - - Weight 53.8 kg (118 lb 9.6 oz) 09/10/2024 9:53 A M EDT Height 154.9 cm (5' 1 ) 01/03/2024 3:17 PM EDT Body Mass Index 22.41 01/03/2024 3:17 PM EDT Plan of Treatment Upcoming Encounters Date Type Department Care Team (Late st Contact Info) Description 02/18/2025 1:00 PM EST Office Visit [facility] [address] [place] [address] Tequila Hadley, OD [address] [place] [address] Health Maintenance Due Date Last Done Comments HIV Screening 1984 Lipid Panel 1984 Disability Screening 1984 Diabetes: Foot Exam 1994 Eye Exam 1994 Alcohol/Substance Use Screening 1996 Family Planning (PISQ) 1999 HPV Vaccines (1 - Male 3-dos e series) 1999 Hepatitis C Screening 2002 Diabetes: Urine Protein Screening 2003 Hepatitis B Vaccines (1 of 3 - 19+ 3-dose series) 2003 Pneumococcal Vaccine: Pediatrics (0 to 5 Years) and At-Risk Patients (6 to 49) Years (1 of 2 - PCV) 2003 Diabetes: Hemoglobin A1C 04/04/2024 024, 02/28/2021 COVID-19 Vaccine (2 - 2024-2 6 season) 2024 05/31/2022 Influenza Vaccine (#1) 2024 06/30/2021 Depression Screening 01/02/2025 01/03/2024, 01/03/2024 SDOH Screening 01/02/2025 01/03/2024 Tobacco Screening 09/10/2025 09/10/2024 DTaP/Tdap/Td Vaccines (2 - T d or Tdap) 04/11/2031 04/11/2021 Zoster Vaccines (1 of 2) 2034 RSV Patients and Patients Aged 60 years or older (1 - 1-dose 75+ series) 2059 HIB Vaccines Aged Out No longer eligi ble based on patient's age to complete this topic Hepatitis A Vaccines Aged Out No long er eligible based on patient's age to complete this topic IPV Vaccines Aged Out No longer eligi ble based on patient's age to complete this topic Meningococcal B Vaccine Aged Out No l onger eligible based on patient's age to complete this topic Meningococcal Vaccine Aged Out No eric jamarcus eligible based on patient's age to complete this topic RSV under 20 months Aged Out No longe r eligible based on patient's age to complete this topic Rotavirus Vaccines Aged Out No longer eligible based on patient's age to complete this topic Procedures Procedure Name Priority Date/Time Associated Diagnosis Comments POCT GLYCATED HEMOGLOBIN, TOTAL Routine 01/03/2024 4:05 PM EDT Type 2 diabetes mellitus with hyperglycemia, without long-term current use of insulin ([facility]) from Last 3 Months or Most Recently Relevant to Health Maintenance Results * (ABNORMAL) POCT HGB A1C (01/03/2024 4:05 PM EDT) Hemoglobin A1C 8.6(A) 4.0 - 6.0 % QC Media Lot # [id number] Lot# Expiration Date ,538,[id number] Blood 01/03/2024 4:05 PM EDT Bozena Pryor MD POINT OF CARE TEST ENTER/EDIT ORDERABLES Edited Result - Final from Last 3 Months or Most Recently Relevant to Health Maintenance Insurance [facility] C3 HSN FULL Care Teams [employer] Principal Relationship Specialty Start Date End Date Bozena Lorenz MD [address] [place] [address] PCP - General Family Medicine 03/07/18
[2025-01-06 06:30] LABS: MANUAL DIFF FLAG NO
[2025-01-06 06:31] LABS: Hematocrit 47.0 % (42.0-52.0); Hemoglobin 16.2 g/dl (14.0-18.0); Imm Gran Abs Auto 0.08 X10*3/uL (0.00-0.03); Imm Gran Pct Auto 0.8 % (0.0-0.4); Lymphocytes Absolute Auto 2.9 X10*3/uL (1.2-4.9); Mean Corpuscular HGB Conc 34.5 g/dl (31.0-36.0); Mean Corpuscular Hemoglobin 28.2 pg (27.0-33.0); Mean Corpuscular Volume 81.9 fL (80.0-98.0); NRBC Abs Auto 0.000 X10*3/uL (0.0-0.012); NRBC Pct Auto 0.0 /100WBC (0.0-0.2); Platelet Count 370 X10*3/uL (160-400); Red Blood Count 5.74 X10*6/uL (4.60-5.80); White Blood Count 10.4 X10*3/uL (4.8-10.8)
--- NOTE | 2025-01-06 06:36 | ED_ITS ---
HPI - General Adult General Chief complaint: Nausea/Vomiting/Diarrhea Stated complaint: vomiting Time Seen by Provider: 01/06/25 06:25 Source: patient Mode of arrival: ambulatory Limitations: no limitations History of Present Illness ED Provider: HPI narrative: 39-year-old male with a history of type 2 diabetes, experiencing homelessness, smokes marijuana, presenting with nausea vomiting and diarrhea for the past 3 days, also stopped taking metformin for the past 2 3 months because he ran out of the prescription. No abdominal pain no fevers or chills no hematemesis or hematochezia. Related Data Home Medications ?Medication ?Instructions ?Recorded ?Confirmed loratadine 10 mg tablet 1 tab PO QAM PRN Allergic Sy mptoms 06/07/21 06/07/21 blood sugar diagnostic (FreeStyle 07/01/21 07/01/21 Lite Strips) Previous Rx's ?Medication ?Instructions ?Recorded blood sugar diagnostic (FreeStyle #100 ea 02/28/21 Lite Strips) blood-glucose meter (FreeStyle #1 ea 02/28/21 Lite Meter kit) lancets 28 gauge (FreeStyle #100 ea 02/28/21 Lancets) albuterol sulfate 90 mcg/actuation 2 puff inhalation Q 4-6H PRN 07/06/21 aerosol inhaler shortness of breath or wheez ing 30 days #8.5 grams fluticasone propionate 50 1 spray intranasal BID 30 da ys #16 07/06/21 mcg/actuation nasal grams spray,suspension metformin 500 mg tablet 500 mg PO BID 30 days #60 ta bs 07/06/21 sertraline 25 mg tablet 75 mg (3 x 25 mg) PO DAILY 3 0 days 07/06/21 #90 tabs trazodone 100 mg tablet 100 mg PO BEDTIME PRN insomn ia 30 07/06/21 days #30 tabs miconazole nitrate 2 % topical 1 spray topical BID #13 3 grams 03/27/22 spray powder (Lotrimin AF Jock Itch Powder) metformin 500 mg tablet 500 mg PO BID #60 tabs 02/28 trazodone 50 mg tablet 50 mg PO BEDTIME PRN insomni a #20 02/28/23 tabs loperamide 2 mg capsule 2 mg PO Q6H PRN loose stool 5 days 01/06/25 #30 caps metformin 500 mg tablet 500 mg PO BID 90 days #180 t abs 01/06/25 ondansetron 4 mg disintegrating 4 mg PO Q8H PRN nausea and 01/06/25 tablet vomiting #4 tabs Allergies Allergy/AdvReac Type Severity Reaction Status Date / Time SHELLFISH Allergy Unknown ITCHY Uncoded 01/06/25 05:45 THROAT Review of Systems 2 Constitutional: Constitutional: Reports as per [facility] Past Medical History Medical History MDD (major depressive disorder), recurrent severe, without psychosis Depression Diabetes Asthma Social History Social History Household Members: None Housing: Homeless Do you presently have visiting nurse or other home services: No Alcohol intake: current Alcohol intake frequency: holidays/special occasions only Patient Tobacco Use Status: Current someday Tobacco user Tobacco use type: Cigarette Cigarettes Per Day: 2 Years Smoked: 15 Smoked in Last 30 Days: Yes e-Cigarette/Vaping Use: Currently Using Second Hand Smoke Exposure: Yes Use of substances other than those prescribed or required for medical reasons: No Substance Use Type: Crack/Cocaine and Marijuana Advance Directives: No Do you have a plan to hurt others: No Plan service: No Sexual orientation: Cisgender Physical Exam ED Vital Signs: Vital Signs - 24 hr 01/06/25 05:42 Temperature 97.9 F Pulse Rate 88 Respiratory Rate 16 Blood Pressure 136/91 H Pulse Oximetry 98 Oxygen Delivery Method Room Air BMI result Body Mass Index 24.0 Const Other: General: ?Appears of stated age ? ?mucosa is not dry, no scleral icterus ? Neck: Supple, no LAD ? ?CV: RRR, no obvious murmurs appreciated ? ?Resp: ?No wheezing rales rhonchi no stridor moving air well ? Abd: ?Bowel sounds are present, no tenderness no rebound no rigidity ? ?MSK: FROM, strength 5/5 all extremities ? Skin: Warm, dry, intact, no jaundice ? ?Neuro: ?Alert and oriented x3, moving upper and lower extremities symmetrically, no obvious facial asymmetry noted, cranial nerves 2-12 intact Medications Administered Discontinued Medications Generic Name Dose Route Start Last Admin Trade Name Freq PRN Reason Stop Dose Admin Al Hydroxide/Mg Hydroxide 15 ml 01/06/25 06:34 01/06/25 06:49 Magnesium Hydrox/Alum Hydrox 30 Ml Oral.Susp PO 01/06/25 06:35 15 ml ONCE ONE Administration Belladonna Alkaloids/Phenobarbital 10 ml 01/06/25 06:34 01/06/25 06:49 Phenobarb/Hyoscy/Atropine/Scop 10 Ml Elixir PO 01/06/25 06:35 10 ml ONCE ONE Administration Ondansetron HCl 4 mg 01/06/25 06:34 01/06/25 06:48 Ondansetron Odt 4 Mg Tab.Rapdis TRANSLINGU 01/06/25 06:35 4 mg ONCE ONE Administration Medical Decision Making Medical Decision Making [facility] Narrative: 7:36 AM 01/06/2025 (Dr. Jamal Juarez): Patient is well-appearing, has been on abdominal exam, vital signs well tachycardia and no other clinical exam findings to suspect underlying dehydration, overall reassured that he is not in DKA but given the fact that he is experiencing homelessness has limited access to healthcare we will work him up make sure that he is not in DKA plan to refill his medications, he states he does have follow up but sometime in January Differential Diagnosis Differential Diagnoses: The differential diagnosis associated with the presentation includes (DKA, dehydration, pancreatitis, hepatitis, cholecystitis) Admission/Observation Consideration of admission/observation: Escalation of care including admission/observation considered Lab Data [facility] Lab Attestation statement: I reviewed the patient's lab results. 01/06/25 06:23 01/06/25 06:23 Labs: Lab Results 01/06/25 Range/Units 06:23 WBC 10.4 (4.8-10.8) X10*3/uL RBC 5.74 (4.60-5.80) X10*6/uL Hgb 16.2 (14.0-18.0) g/dl Hct 47.0 (42.0-52.0) % MCV 81.9 (80.0-98.0) fL MCH 28.2 (27.0-33.0) pg MCHC 34.5 (31.0-36.0) g/dl RDW 12.5 (11.0-16.0) % Plt Count 370 (160-400) X10*3/uL MPV 8.4 L (9.4-12.4) fL Immature Gran % (Auto) 0.8 H (0.0-0.4) % Neut % (Auto) 62.6 (45-73) % Lymph % (Auto) 27.6 (20-40) % [place] % (Auto) 7.8 (2-11) % Eos % (Auto) 0.8 (0-4) % Baso % (Auto) 0.4 (0-2) % Lymph # (Auto) 2.9 (1.2-4.9) X10*3/uL [place] # (Auto) 0.8 (0.1-1.2) X10*3/uL Eos # (Auto) 0.1 (0.0-0.4) X10*3/uL Baso # (Auto) 0.0 (0.0-0.2) X10*3/uL Abs Immat Gran (auto) 0.08 H (0.00-0.03) X10*3/uL Absolute Neuts (auto) 6.5 (2.0-8.3) x10*3/uL Absolute Nucleated RBC 0.000 (0.0-0.012) X10*3/uL Nucleated RBC % (auto) 0.0 (0.0-0.2) /100WBC Sodium 139 (135-145) mmol/L Potassium 4.6 (3.3-5.1) mmol/L Chloride 104 (96-108) mmol/L Carbon Dioxide 26 (22-29) mmol/L Anion Gap 14 (12-20) BUN 7 L (9-16) mg/dL Creatinine 0.73 (0.5-1.4) mg/dL Estim Creat Clear Calc 99.5 Estimated GFR > 60 Random Glucose 183 H (60-115) mg/dL Calcium 9.1 (8.4-10.2) mg/dL Magnesium 2.1 (1.6-2.6) mg/dL Total Bilirubin 0.2 (0.0-1.0) mg/dL AST 24 (5-37) U/L ALT 22 (0-40) U/L Alkaline Phosphatase 87 (39-117) U/L Total Protein 7.5 (6.5-8.0) g/dL Albumin 4.5 (3.5-5.0) g/dL Lipase 22 (8-78) U/L Beta-Hydroxybutyrate 0.09 (0.02-0.27) mmol/L COVID-19 (ESE) Negative (Negative) COVID-19 Clin Com See Note Influenza Type A (ADAM) Negative (Negative) Influenza Type B (ADAM) Negative (Negative) Influenza A & B Note See Note Tests considered The following testing was considered but not selected: Ultrasound gallbladder Social Determinants Patient?s care significantly limited by Social Determinants of Health including: Inadequate housing, Low income and Problems related to primary support group Discharge Plan Discharge Clinical Impression: Type 2 diabetes mellitus, Medication refill, Nausea & vomiting Patient Disposition: Home, Self-Care Additional Instructions: Your blood work is reassuring, prescribe her in 3 months' worth of metformin, you can use Zofran as needed for nausea and vomiting, loperamide as prescribed for loose stools Your blood work does not reveal any evidence for dehydration or any other issues associated with type 2 diabetes and not taking her medications, actually your glucose level has been marginally elevated to 180s Any other issues or concerns come back to the ER otherwise please follow up with your PCP as we have discussed Prescriptions: New metformin 500 mg tablet 500 mg PO BID 90 Days Qty: 180 0RF loperamide 2 mg capsule 2 mg PO Q6H PRN (Reason: loose stool) 5 Days Qty: 30 0RF Rx Instructions: 2mg after each loose BM max 16mg daily ondansetron 4 mg tablet,disintegrating 4 mg PO Q8H PRN (Reason: nausea and vomiting) Qty: 4 0RF No Action (DME) FreeStyle Lite Strips Strip MISCELLANEOUS BID sertraline 25 mg Tablet 75 mg PO DAILY 30 Days Qty: 90 1RF trazodone 100 mg Tablet 100 mg PO BEDTIME PRN (Reason: insomnia) 30 Days Qty: 30 1RF metformin 500 mg tablet 500 mg PO BID 30 Days Qty: 60 0RF albuterol sulfate 90 mcg/actuation HFA aerosol inhaler 2 puff inhalation Q4-6H PRN (Reason: shortness of breath or wheezing) 30 Days Qty: 8.5 0RF fluticasone propionate 50 mcg/actuation spray,suspension 1 spray intranasal BID 30 Days Qty: 16 0RF Rx Instructions: administer into each nostril miconazole nitrate [Lotrimin AF Jock Itch Powder] 2 % aerosol powder 1 spray topical BID Qty: 133 0RF (DME) blood-glucose meter [FreeStyle Lite Meter] Kit See Rx Instructions .Route Qty: 1 0RF Rx Instructions: As directed (DME) lancets [FreeStyle Lancets] 28 gauge misc See Rx Instructions .Route Qty: 100 0RF Rx Instructions: As directed (DME) FreeStyle Lite Strips Strip See Rx Instructions .Route Qty: 100 0RF Rx Instructions: As directed loratadine 10 mg tablet 1 tab PO QAM PRN (Reason: Allergic Symptoms) metformin 500 mg tablet 500 mg PO BID Qty: 60 0RF trazodone 50 mg tablet 50 mg PO BEDTIME PRN (Reason: insomnia) Qty: 20 0RF Print Language: Amharic
[2025-01-06 06:47] LABS: IDNOW Serial# 55D5AD1C; Influenza B2 Negative (Negative)
[2025-01-06 06:48] LABS: Alanine Aminotransferase 22 U/L (0-40); Albumin Level 4.5 g/dL (3.5-5.0); Alkaline Phosphatase 87 U/L (39-117); Anion Gap 14 (12-20); Aspartate Amino Transferase 24 U/L (5-37); Blood Urea Nitrogen 7 mg/dL (9-16); COVID-19 Test Negative (Negative); Calcium 9.1 mg/dL (8.4-10.2); Carbon Dioxide 26 mmol/L (22-29); Chloride 104 mmol/L (96-108); Creatinine Clr Calc Pharmacy 99.5; Estimated Glomerular Filt Rate > 60; IDNOW Serial# 58CA691E; Lipase 22 U/L (8-78); Magnesium 2.1 mg/dL (1.6-2.6); Potassium 4.6 mmol/L (3.3-5.1); Sodium 139 mmol/L (135-145); Total Protein 7.5 g/dL (6.5-8.0)
[2025-01-06] MEDS: Magnesium Hydrox/Alum Hydrox 30 ML ORAL.SUSP 15 ML PO (06:49)
[2025-01-06] MEDS: PHENobarb/Hyoscy/Atropine/Scop 10 ML ELIXIR PO (06:49)
--- NOTE | 2025-01-06 06:51 | PC.NURSE ---
medicated per mar.
[2025-01-06 08:09] VITALS: BP 136/91; PULSE 88; RESP 16; TEMP 36.6; O2SAT 98
== END 2025-01-06 08:09 | disposition home or self-care (01) ==
PROVIDERS: Emergency Provider Emergency Medicine; PCP Internal Medicine
DX: R11.2 Nausea with vomiting, unspecified (principal); E11.9 Type 2 diabetes mellitus without complications; J45.909 Unspecified asthma, uncomplicated; Z59.00 Homelessness unspecified; Z72.0 Tobacco use; Z91.141 Patient's other noncompliance with medication regimen due to financial hardship
CPT/HCPCS: 80053; 82010; 83690; 83735; 85025; 87502; 87635; 99283; 99284

== ENCOUNTER 2025-02-10 05:48 | Emergency (ER) | payer MEDICAID, SELFPAY ==
[2025-02-10 06:02] VITALS: BP 137/75; PULSE 87; RESP 20; TEMP 36.8; O2SAT 96; BMI 23.2
--- OUTSIDE RECORDS SUMMARY | 2025-02-10 06:13 | XMS_ITS | Clinical Summary ---
Author Organization [employer] Address [address] [place] [address] Care Team Providers Care Fine Artist Name Role Phone Bozena Lorenz MD Primary Care Provide r Allergies Active Allergy Reactions Criticality Noted Date Comments Shellfish Protein-Containing Drug Products Hives,Itching,Swellin g Medium 09/08/2020 Swelling of [...] hyperglycemia, without long-term current use of insulin ([facility]) Take 1 tablet (500 mg) by mouth with breakfast and with evening meal. 180 tablet 1 4 Active Lancets miscIndications :Type 2 diabetes mellitus with hyperglycemia, without long-term current use of insulin ([facility]) Use to test blood sugar 2 times daily 100 each 4 Active Alcohol Swabs 70 % padsIndications :Type 2 diabetes mellitus with hyperglycemia, without long-term current use of insulin ([facility]) Use to test blood sugar 2 times daily 100 each 2 4 Active Blood Glucose Monitoring Suppl (FreeStyle Royal Lite) w/Device kitIndications: Type 2 diabetes mellitus [...] muscle spasms. 30 tablet 1 5 Active Active Problems Problem Noted Date Diagnosed Date [...] asthma 04/09/2022 Newly diagnosed diabetes 04/09/2022 Encounters * This document contains information received from the source organization and may not represent a complete record from that organization. Date Type Department Care Team Description 01/06/2025 Orders Only GENERIC EXTERNAL DATA DEPARTMENT Provider, Generic External Data 12/29/[address] [facility] MEDICINE [address] [place] [address] Bozena Lorenz MD Chart Prep 12/29/[address] [facility] [address] [facility] [place] [address] Bozena Lorenz MD Insurance from Last 3 Months Immunizations Immunization Administration [...] Description 02/18/2025 1:00 PM EST Office Visit [facility] OPTOMETRY [address] [place] [address] Tarka, Tequila, OD [address] [place] [address] 03/16/2025 3:15 PM EST Office Visit [facility] MEDICINE [address] [place] [address] Bozena Lorenz MD [address] [place] [address] Health Maintenance Due Date Last Done Comments [...] Procedure Name Priority Date/Time Associated Diagnosis Comments BETA-HYDROXYBUTYRATE Routine 01/06/2025 6:23 AM EDT LIPASE Routine 01/06/2025 6:23 AM EDT MAGNESIUM Routine 01/06/2025 6:23 AM EDT COMPREHENSIVE METABOLIC PANEL Routine 01/06/2025 6:23 AM EDT COVID-19 ID NOW (BEGUM) Routine 01/06/2025 6:23 AM EDT CBC WITH AUTO DIFFERENTIAL Routine 01/06/2025 6:23 AM EDT INFLUENZA A B2 ID NOW (BEGUM) Routine 01/06/2025 6:23 AM EDT POCT GLYCATED HEMOGLOBIN, TOTAL Routine 01/03/2024 4:05 PM EDT Type 2 diabetes mellitus with hyperglycemia, without long-term current use of insulin ([facility]) from Last 3 Months or Most Recently Relevant to Health Maintenance Results * Influenza A B2 ID NOW (Begum) (01/06/2025 6:23 AM EDT) IDNOW SERIAL# [id number] [facility] Influenza A Negative Negative [facility] Influenza B2 Negative Negative [facility] Influenza A B2 Note See Note [facility] Comment:The Begum ID NOW In fluenza A B2 test is used for thequalitative detection of influenza A and B from patientswith signs and symptoms of respiratory infection.Negative results do not preclude influenza virus infectionand should not be used as the sole basis for diagnosis,treatment or other patient management decisions.There is a risk of false negative results due to thepresence of variants in the viral targets of the assay, lowlevels of virus in the specimen and co- infection withRespiratory Syncytial Virus. 01/06/2025 6:23 AM EDT 01/06/2025 6:28 AM EDT us Generic External Data Provider LAB MICROBIOLOGY - GENERAL ORDERABLES Final Result [facility] [address] [place] [phone] * COVID-19 ID NOW (BEGUM) (01/06/2025 6:23 AM EDT) IDNOW SERIAL# [id number] [facility] COVID-19 TEST Negative Negative [facility] COVID-19 NOTE See Note [facility] Comment: Results are for the identification of SARS-CoV2 RNA. TheSARS-CoV2 RNA is generally detectable in respiratory samplesduring the acute phase of infection. Positive results areindicative of the presence of SARS-CoV-2 RNA; clinicalcorrelation with patient history and other diagnosticinformation is necessary to determine patient infectionstatus. Positive results do not rule out bacterial infectionor co- infection with other viruses.Testing facilities within the [facility] and [facility] are required to report all positive results tothe appropriate public health authorities.Negative results should be treated as presumptive and, ifinconsistent with clinical signs and symptoms or necessaryfor patient management, should be tested with differentauthorized or cleared molecular tests. Negative results donot preclude SARS-CoV2 RNA infection and should not be usedas the sole basis for patient management decisions. Negativeresults should be considered in the context of a patient'srecent exposures, history and the presence of clinical signsand symptoms consistent with COVID-19.This test has been authorized by the FDA under an EmergencyUse Authorization (EUA) for use by authorized laboratories.Testing performed on the [employer] NOW utilizing NAAT. 01/06/2025 6:23 AM EDT 01/06/2025 6:28 AM EDT us Generic External Data Provider LAB MOLECULAR DIXIE GNOSTICS ORDERABLES Final Result [facility] [address] [place] [phone] * Beta-Hydroxybutyrate (01/06/2025 6:23 AM EDT) Beta-Hydroxybut yrate 0.09 0.02 - 0.27 mmol/L [facility] 01/06/2025 6:23 AM EDT 01/06/2025 6:28 AM EDT us Generic External Data Provider LAB BLOOD ORDERAB LES Final Result [facility] [address] [place], [place] [phone] * (ABNORMAL) CBC auto differential (01/06/2025 6:23 AM EDT) White Blood Count 10.4 4.8 - 10.8 X10*3/uL [facility] Red Blood Count 5.74 4.60 - 5.80 X10*6/uL [facility] Hemoglobin 16.2 14.0 - 18.0 g/dl [facility] Hematocrit 47.0 42.0 - 52.0 % [facility] Mean Corpuscular Volume 81.9 80.0 - 98.0 fL [facility] Mean Corpuscular Hemoglobin 28.2 27.0 - 33.0 pg [facility] Mean Corpuscular HGB Conc 34.5 31.0 - 36.0 g/dl [facility] Red Cell Distribution Width 12.5 11.0 - 16.0 % [facility] Platelet Count 370 160 - 400 X10*3/uL [facility] Mean Platelet Volume 8.4(L) 9.4 - 12.4 fL [facility] Neutrophils Percent Auto 62.6 45 - 73 % [facility] Imm Gran Pct Auto 0.8(H) 0.0 - 0.4 % [facility] Lymphocytes Percent Auto 27.6 20 - 40 % [facility] Monocytes Percent Auto 7.8 2 - 11 % [facility] Eosinophils Percent Auto 0.8 0 - 4 % [facility] Basophils Percent Auto 0.4 0 - 2 % [facility] NRBC Pct Auto 0.0 0.0 - 0.2 /100WBC [facility] Neutrophils Absolute Auto 6.5 2.0 - 8.3 x10*3/uL [facility] Imm Gran Abs Auto 0.08(H) 0.00 - 0.03 X10*3/uL [facility] Lymphocytes Absolute Auto 2.9 1.2 - 4.9 X10*3/uL [facility] Monocytes Absolute Auto 0.8 0.1 - 1.2 X10*3/uL [facility] Eosinophils Absolute Auto 0.1 0.0 - 0.4 X10*3/uL [facility] Basophils Absolute Auto 0.0 0.0 - 0.2 X10*3/uL [facility] NRBC Abs Auto 0.000 0.0 - 0.012 X10*3/uL [facility] 01/06/2025 6:23 AM EDT 01/06/2025 6:28 AM EDT us Generic External Data Provider LAB BLOOD ORDERAB LES Final Result Performing Organization Address City/[facility]/ZIP Co de Phone Number [facility] [address] [place] [phone] * Magnesium (01/06/2025 6:23 AM EDT) Magnesium 2.1 1.6 - 2.6 mg/dL [facility] 01/06/2025 6:23 AM EDT 01/06/2025 6:28 AM EDT us Generic External Data Provider LAB BLOOD ORDERAB LES Final Result Performing Organization Address [facility]/ZIP Co de Phone Number [facility] [address] [place] [phone] * Lipase (01/06/2025 6:23 AM EDT) Lipase 22 8 - 78 U/L [facility] 01/06/2025 6:23 AM EDT 01/06/2025 6:28 AM EDT us Generic External Data Provider LAB BLOOD ORDERAB LES Final Result Performing Organization Address City/[facility]/ZIP Co de Phone Number [facility] [address] [place] [phone] * (ABNORMAL) Comprehensive Metabolic Panel (01/06/2025 6:23 AM EDT) Sodium 139 135 - 145 mmol/L [facility] Potassium 4.6 3.3 - 5.1 mmol/L [facility] Chloride 104 96 - 108 mmol/L [facility] Carbon Dioxide 26 22 - 29 mmol/L [facility] Anion Gap 14 12 - 20 [facility] Urea Nitrogen (BUN) 7(L) 9 - 16 mg/dL [facility] Creatinine, Serum 0.73 0.5 - 1.4 mg/dL [facility] Creatinine Clr Calc Pharmacy 99.5 [facility] Comment:eGFR (calculated fro m the MDRD study equation) and eCrCl(calculated from the Cockcroft-Gault equation) are based ondifferent parameters and may not yield comparable results.If eCrCl result is absurd, please check patient'sheight/weight. Estimated Glomerular Filt Rate >60 [facility] Comment:Chronic Kidney Disea se: Estimated GFR < 60 mL/min/[id number] Kidney Disease: Estimated GFR < 15 mL/min/1.73m2 Glucose 183(H) 60 - 115 mg/dL [facility] Calcium 9.1 8.4 - 10.2 mg/dL [facility] Bilirubin, Total 0.2 0.0 - 1.0 mg/dL [facility] Aspartate Amino Transferase 24 5 - 37 U/L [facility] Alanine Aminotransferase 22 0 - 40 U/L [facility] Total Protein 7.5 6.5 - 8.0 g/dL [facility] Albumin Level 4.5 3.5 - 5.0 g/dL [facility] Alkaline Phosphatase 87 39 - 117 U/L [facility] 01/06/2025 6:23 AM EDT 01/06/2025 6:28 AM EDT us Generic External Data Provider LAB BLOOD ORDERAB LES Final Result [facility] [address] [place] [phone] * (ABNORMAL) POCT HGB A1C (01/03/2024 4:05 PM EDT) Hemoglobin A1C 8.6(A) 4.0 - 6.0 % QC Media Lot # [id number] Lot# Expiration Date ,245 Blood 01/03/2024 4:05 PM EDT Bozena Pryor MD POINT OF CARE TEST ENTER/EDIT ORDERABLES Edited Result - Final from Last 3 Months or Most Recently Relevant to Health Maintenance [place] [address] [place] [address] C3 HSN FULL Care Teams Fine Artist Relationship Specialty Start Date End Date Bozena Lorenz MD [address] [place] [phone] PCP - General Family Medicine 03/07/18
--- NOTE | 2025-02-10 07:10 | ED.ANXIETY ---
HPI - Anxiety General Chief Complaint: Anxiety Stated Complaint: Depressed Time Seen by Provider: 02/10/25 06:07 Source: patient Mode of arrival: ambulatory Limitations: no limitations History of Present Illness ED Provider: HPI narrative: 39-year-old with a history of type 2 diabetes, depression, experiencing homelessness, presenting with depression, he started of his living situation, no SI or HI, no fevers or chills, states that he was having a headache due to being outside in the cold. We would like to speak to somebody about help Related Data Home Medications ?Medication ?Instructions ?Recorded ?Confirmed loratadine 10 mg tablet 1 tab PO QAM PRN Allergic Symptoms 06/07/21 06/07/21 blood sugar diagnostic (FreeStyle 07/01/21 07/01/21 Lite Strips) Previous Rx's ?Medication ?Instructions ?Recorded blood sugar diagnostic (FreeStyle #100 ea 02/28/21 Lite Strips) blood-glucose meter (FreeStyle #1 ea 02/28/21 Lite Meter kit) lancets 28 gauge (FreeStyle #100 ea 02/28/21 Lancets) albuterol sulfate 90 mcg/actuation 2 puff inhalation Q4-6H PRN 07/06/21 aerosol inhaler shortness of breath or wheezing 30 days #8.5 grams fluticasone propionate 50 1 spray intranasal BID 30 days #16 07/06/21 mcg/actuation nasal grams spray,suspension metformin 500 mg tablet 500 mg PO BID 30 days #60 tabs 07/06/21 sertraline 25 mg tablet 75 mg (3 x 25 mg) PO DAILY 30 days 07/06/21 #90 tabs trazodone 100 mg tablet 100 mg PO BEDTIME PRN insomnia 30 07/06/21 days #30 tabs miconazole nitrate 2 % topical 1 spray topical BID #133 grams 03/27/22 spray powder (Lotrimin AF Jock Itch Powder) metformin 500 mg tablet 500 mg PO BID #60 tabs 02/28/23 trazodone 50 mg tablet 50 mg PO BEDTIME PRN insomnia #20 02/28/23 tabs loperamide 2 mg capsule 2 mg PO Q6H PRN loose stool 5 days 01/06/25 #30 caps metformin 500 mg tablet 500 mg PO BID 90 days #180 tabs 01/06/25 ondansetron 4 mg disintegrating 4 mg PO Q8H PRN nausea and 01/06/25 tablet vomiting #4 tabs Allergies Allergy/AdvReac Type Severity Reaction Status Date / Time SHELLFISH Allergy Unknown ITCHY Uncoded 02/10/25 06:03 THROAT Review of Systems Constitutional: Constitutional: Reports as per [facility] Past Medical History Medical History MDD (major depressive disorder), recurrent severe, without psychosis Depression Diabetes Asthma Social History Social History Household Members: None Housing: Homeless Do you presently have visiting nurse or other home services: No Alcohol intake: current Alcohol intake frequency: holidays/special occasions only Patient Tobacco Use Status: Current someday Tobacco user Tobacco use type: Cigarette Cigarettes Per Day: 2 Years Smoked: 15 Smoked in Last 30 Days: Yes e-Cigarette/Vaping Use: Currently Using Second Hand Smoke Exposure: Yes Use of substances other than those prescribed or required for medical reasons: Yes Substance Use Type: Crack/Cocaine and Marijuana Substance Use Frequency: Daily Substance Use Frequency Other:: cocaine - occasional THC daily Last Used Substance: Days (ago) Advance Directives: No Advance Directives Information Provided: Yes Do you have a plan to hurt others: No Plan service: No Sexual orientation: Cisgender Physical Exam Exam: Exam: General: ?Appears of stated age ? ?MSK: FROM, strength 5/5 all extremities ? Skin: Warm, dry, intact, ? ?Neuro: ?Alert and oriented x3, moving upper and lower extremities symmetrically, no obvious facial asymmetry noted, cranial nerves 2-12 intact Psych: Good eye contact, non pressured speech no SI or HI, depressive affect Vital Signs: Vital Signs: Last Vital Signs Temp 98.3 F 02/10/25 06:02 Pulse 92 02/10/25 07:31 Resp 16 02/10/25 07:31 BP 114/68 02/10/25 07:31 Pulse Ox 96 02/10/25 07:31 O2 Del Method Room Air 02/10/25 07:31 BMI result Body Mass Index 23.2 Medical Decision Making Medical Decision Making MDM Narrative: 7:12 AM 02/10/2025 (Dr. Jamal Juarez): We will obtain blood work urinalysis for medical clearance and crisis evaluation, I am not sure what kind of resources can be provided for the patient, he is not endorsing any SI or SI, he does have history of major depressive disorder this is a recurrent, he is also experiencing homelessness, but no drug use, occasional alcohol use, I have seen the patient before for metformin refill but he is not someone who comes to the ER often. No fevers or chills no trauma noted 7:57 AM 02/10/2025 (Dr. Jamal Juarez): Patient not interested in resources provided for him by our care team we will be discharged, patient states he did not take his metformin because he is about to see his PCP and did not want metformin to mess with his results , I am going to give him subcutaneous insulin for elevated glucose without any evidence for DKA and the 1st dose of metformin, he has this medication available for him thereafter Differential Diagnosis Differential Diagnoses: The differential diagnosis associated with the presentation includes (DKA, dehydration, SI, HI, depression) Admission/Observation Consideration of admission/observation: Escalation of care including admission/observation considered Consult Healthcare Provider Management of the patient was discussed with: Behavioral Health Provider Lab Data MDM Lab Attestation statement: I reviewed the patient's lab results. 02/10/25 07:31 02/10/25 07:31 Labs: Lab Results 02/10/25 Range/Units 07:31 WBC 12.7 H (4.8-10.8) X10*3/uL RBC 5.10 (4.60-5.80) X10*6/uL Hgb 14.3 (14.0-18.0) g/dl Hct 42.0 (42.0-52.0) % MCV 82.4 (80.0-98.0) fL MCH 28.0 (27.0-33.0) pg MCHC 34.0 (31.0-36.0) g/dl RDW 11.9 (11.0-16.0) % Plt Count 319 (160-400) X10*3/uL MPV 8.7 L (9.4-12.4) fL Immature Gran % (Auto) 0.6 H (0.0-0.4) % Neut % (Auto) 65.0 (45-73) % Lymph % (Auto) 21.9 (20-40) % [place] % (Auto) 10.7 (2-11) % Eos % (Auto) 1.4 (0-4) % Baso % (Auto) 0.4 (0-2) % Lymph # (Auto) 2.8 (1.2-4.9) X10*3/uL [place] # (Auto) 1.4 H (0.1-1.2) X10*3/uL Eos # (Auto) 0.2 (0.0-0.4) X10*3/uL Baso # (Auto) 0.1 (0.0-0.2) X10*3/uL Abs Immat Gran (auto) 0.07 H (0.00-0.03) X10*3/uL Absolute Neuts (auto) 8.3 (2.0-8.3) x10*3/uL Absolute Nucleated RBC 0.000 (0.0-0.012) X10*3/uL Nucleated RBC % (auto) 0.0 (0.0-0.2) /100WBC Sodium 137 (135-145) mmol/L Potassium 4.1 (3.3-5.1) mmol/L Chloride 103 (96-108) mmol/L Carbon Dioxide 25 (22-29) mmol/L Anion Gap 13 (12-20) BUN 13 (9-16) mg/dL Creatinine 0.96 (0.5-1.4) mg/dL Estim Creat Clear Calc 75.6 Estimated GFR > 60 Random Glucose 375 H* (60-115) mg/dL Calcium 8.8 (8.4-10.2) mg/dL Total Bilirubin 0.4 (0.0-1.0) mg/dL AST 19 (5-37) U/L ALT 33 (0-40) U/L Alkaline Phosphatase 81 (39-117) U/L Total Protein 6.5 (6.5-8.0) g/dL Albumin 3.9 (3.5-5.0) g/dL Chronic Conditions Patient?s care impacted by: Diabetes Social Determinants Patient?s care significantly limited by Social Determinants of Health including: Problems related to primary support group and Unemployment Discharge Plan Discharge Clinical Impression: MDD (major depressive disorder), recurrent severe, without psychosis, Homelessness, Poorly controlled diabetes mellitus Additional Instructions: Please take your metformin even when you see your PCP and they will adjusting medication, your sugars are poorly controlled, 1st dose of the metformin given in the ER You were seen in our Emergency Department today for treatment of a behavioral health issue. It is important after your visit that you follow up with either your behavioral health provider or a primary care doctor within 7 days.? If you have trouble finding a therapist you can reach out to [address] [phone] [facility] [place] [facility] can be reached 7 days a week 24 hours a day.? Call [phone] to speak with someone.? Return for any worsening symptoms or concerns such as thoughts of self harm or harm to others. Please call 911 if you feel your mental health is worsening.? Prescriptions: No Action (DME) FreeStyle Lite Strips Strip MISCELLANEOUS BID sertraline 25 mg Tablet 75 mg PO DAILY 30 Days Qty: 90 1RF trazodone 100 mg Tablet 100 mg PO BEDTIME PRN (Reason: insomnia) 30 Days Qty: 30 1RF metformin 500 mg tablet 500 mg PO BID 30 Days Qty: 60 0RF albuterol sulfate 90 mcg/actuation HFA aerosol inhaler 2 puff inhalation Q4-6H PRN (Reason: shortness of breath or wheezing) 30 Days Qty: 8.5 0RF fluticasone propionate 50 mcg/actuation spray,suspension 1 spray intranasal BID 30 Days Qty: 16 0RF Rx Instructions: administer into each nostril miconazole nitrate [Lotrimin AF Jock Itch Powder] 2 % aerosol powder 1 spray topical BID Qty: 133 0RF (DME) blood-glucose meter [FreeStyle Lite Meter] Kit See Rx Instructions .Route Qty: 1 0RF Rx Instructions: As directed (DME) lancets [FreeStyle Lancets] 28 gauge misc See Rx Instructions .Route Qty: 100 0RF Rx Instructions: As directed (DME) FreeStyle Lite Strips Strip See Rx Instructions .Route Qty: 100 0RF Rx Instructions: As directed loratadine 10 mg tablet 1 tab PO QAM PRN (Reason: Allergic Symptoms) metformin 500 mg tablet 500 mg PO BID Qty: 60 0RF trazodone 50 mg tablet 50 mg PO BEDTIME PRN (Reason: insomnia) Qty: 20 0RF metformin 500 mg tablet 500 mg PO BID 90 Days Qty: 180 0RF loperamide 2 mg capsule 2 mg PO Q6H PRN (Reason: loose stool) 5 Days Qty: 30 0RF Rx Instructions: 2mg after each loose BM max 16mg daily ondansetron 4 mg tablet,disintegrating 4 mg PO Q8H PRN (Reason: nausea and vomiting) Qty: 4 0RF Print Language: Korean
[2025-02-10 07:31] VITALS: BP 114/68; PULSE 92; RESP 16; O2SAT 96
[2025-02-10 07:35] LABS: MANUAL DIFF FLAG NO
[2025-02-10 07:38] LABS: Hematocrit 42.0 % (42.0-52.0); Hemoglobin 14.3 g/dl (14.0-18.0); Imm Gran Abs Auto 0.07 X10*3/uL (0.00-0.03); Imm Gran Pct Auto 0.6 % (0.0-0.4); Lymphocytes Absolute Auto 2.8 X10*3/uL (1.2-4.9); Mean Corpuscular HGB Conc 34.0 g/dl (31.0-36.0); Mean Corpuscular Hemoglobin 28.0 pg (27.0-33.0); Mean Corpuscular Volume 82.4 fL (80.0-98.0); NRBC Abs Auto 0.000 X10*3/uL (0.0-0.012); NRBC Pct Auto 0.0 /100WBC (0.0-0.2); Platelet Count 319 X10*3/uL (160-400); Red Blood Count 5.10 X10*6/uL (4.60-5.80); White Blood Count 12.7 X10*3/uL (4.8-10.8)
--- NOTE | 2025-02-10 07:44 | PC.NURSE ---
Care of Pt assumed at change of shift (0700.) Pt resting quietly on stretcher. NAD noted. VSS Blood work completed. Pts changed into hospital attire on the overnight shift. Belongings inventoried at this time and belongings list completed by poultry hatchery man and items placed in kathryn port. Pt awaiting CT eval at this time.
[2025-02-10 08:07] LABS: Alanine Aminotransferase 33 U/L (0-40); Albumin Level 3.9 g/dL (3.5-5.0); Alkaline Phosphatase 81 U/L (39-117); Anion Gap 13 (12-20); Aspartate Amino Transferase 19 U/L (5-37); Blood Urea Nitrogen 13 mg/dL (9-16); Calcium 8.8 mg/dL (8.4-10.2); Carbon Dioxide 25 mmol/L (22-29); Chloride 103 mmol/L (96-108); Creatinine Clr Calc Pharmacy 75.6; Estimated Glomerular Filt Rate > 60; Potassium 4.1 mmol/L (3.3-5.1); Sodium 137 mmol/L (135-145); Total Protein 6.5 g/dL (6.5-8.0)
--- NOTE | 2025-02-10 08:11 | MHC.CARE ---
Pt does not present as an imminent risk or meet the criteria for a higher level of care. Pt declined a referral to [facility] and [facility]. Pt declined any assistance with locating a [facility] bed. He willl D/C. ED provider in agreement.
[2025-02-10 08:41] LABS: Cannabinoid Screen Urine POSITIVE (Not Detect)
[2025-02-10 08:43] VITALS: BP 114/68; PULSE 92; RESP 16; TEMP -17.7; TEMP 0; O2SAT 96
== END 2025-02-10 08:43 | disposition home or self-care (01) ==
PROVIDERS: Emergency Provider Emergency Medicine; PCP Internal Medicine
DX: F33.2 Major depressive disorder, recurrent severe without psychotic features (principal); E11.9 Type 2 diabetes mellitus without complications; Z59.02 Unsheltered homelessness
CPT/HCPCS: 36415; 80053; 80307; 85025; 99284; S9485